=== PATIENT | female | born 1935 | race Caucasian/White ===

== ENCOUNTER 2017-04-21 17:27 | Inpatient (IN) | payer OTHER, MEDICAID ==
--- NOTE | 2017-04-21 18:11 | DR.GENAD ---
HPI - PCP Primary Care Physician: MASSIEL LOFTON - Complaint/Symptoms Chief Complaint:: PT STATES " I HAVE DIVERTICULITIS AND I HAVE BEEN HURTING , PT WAS SEEN BY SHAKILA AND SHE WAS GIVEN IVF AND SHE WANTED TO ADMIT PT ME AND I THOUGHT I WOULD GET BETTER".. PT GOT IVF'S TODAY AND ABX, CIPRO 500 MG.. Self Treatment fo Chief Complaint: PT STARTED HAVING FEVER AND CHILLS AFTER PT SAW MD TODAY AND SHE WAS TOLD T COME TO THE ER.. - Source History Provided: Patient, Family Member - Mode of Arrival Mode of Arrival: Ambulatory - Timing Onset of Chief Complaint: 04/21/17 PMH - PMH Past Medical History: Yes Past Medical History Comment: YEAST INFECTION , RENAL STONE DIVERTICULITIS. PT WEARS 02 AT NIGHT Past Surgical History: Yes Past Surgical History Comment: PACMAKER - Family History History of Family Medical Conditions: No - Social History Does patient currently use any type of tobacco product: No Have you used tobacco products in the last 12 months: No Type of Tobacco Use: None Does any household member use tobacco: No Alcohol Use: None Do you use any recreational Drugs:: No Lives With: Alone Lives Where: Home - infectious screening In the last 2 months have you had wt loss of >10#?: NO Have you had fever, night sweats or hemotysis?: No Have you traveled outside the country in the last 6 months?: No Isolation: Standard PE - Vital Signs Vitals: Temperature 99.5 F Pulse Rate 88 Respiratory Rate 20 Blood Pressure 106/56 O2 Sat by Pulse Oximetry 94 - Discharge Plan Condition: Stable - Follow ups/Referrals Follow ups/Referrals: Ole Christopher [Primary Care Provider] - 3 days - Instructions
[2017-04-21] MEDS ORDERED: MORPHINE SULFATE INJ 2 MG IVP ONE (19:10)
[2017-04-21] MEDS ORDERED: ZOFRAN INJ 4 MG VIAL IVP ONE (19:10)
[2017-04-21] MEDS ORDERED: ZOFRAN INJ 4 MG VIAL ONE (19:15)
[2017-04-21] MEDS ORDERED: MORPHINE SULFATE INJ 2 MG ONE (19:15)
[2017-04-21 19:27] LABS: BASOPHILS % (AUTO) 0.2 % (0.2-1.0); EOSINOPHILS # (AUTO) 0.1 x10^3/uL (0.0-0.2); HEMATOCRIT 28.6 % (36.0-47.0); HEMOGLOBIN 9.4 g/dL (12.0-16.0); LYMPHOCYTES # (AUTO) 0.1 X10^3/uL (1.3-2.9); LYMPHOCYTES % (AUTO) 1.5 % (21.0-51.0); MEAN CORPUSCULAR HEMOGLOBIN 25.8 pg (27.0-34.0); MEAN CORPUSCULAR VOLUME 78.1 fL (80.0-100.0); MEAN PLATELET VOLUME 6.9 fL (7.4-11.0); MONOCYTES # (AUTO) 0.2 x10^3/uL (0.3-0.8); MONOCYTES % (AUTO) 2.6 % (0.0-13.0); NEUTROPHILS # (AUTO) 8.8 x10^3/uL (2.2-4.8); NEUTROPHILS % (AUTO) 94.7 % (42.0-75.0); PLATELET COUNT 164 X10^3/uL (150.0-450.0); RED BLOOD COUNT 3.66 X10^6/uL (3.5-5.4); RED CELL DISTRIBUTION WIDTH 14.7 % (11.6-16.5); WHITE BLOOD COUNT 9.3 X10^3/uL (3.6-10.0)
[2017-04-21 19:38] LABS: BAND NEUTROPHILS % 9 % (0-10); HYPOCHROMASIA SLIGHT; PLATELET MORPHOLOGY COMMENT NORMAL (NORMAL)
[2017-04-21 19:46] LABS: ALANINE AMINOTRANSFERASE 14 Units/L (12-78); ALBUMIN 3.3 g/dL (3.4-5.0); ALKALINE PHOSPHATASE 105 Units/L (46-116); ASPARTATE AMINO TRANSFERASE 16 Units/L (15-37); BLOOD UREA NITROGEN 25 mg/dL (7-18); CALCIUM 9.7 mg/dL (8.5-10.1); CARBON DIOXIDE 21.2 mmol/L (21-32); CHLORIDE 109 mmol/L (98-107); CKMB % 4.8 % (<4); COR CA(FOR HYPOALB) 10.3 mg/dL (8.5-10.1); COR NA(FOR HYPERGLY) 144 mmol/L (136-145); CREATINE KINASE 21 Units/L (26-192); CREATINE KINASE MB < 1.0 ng/mL (0-4.0); CREATININE 1.82 mg/dL (0.55-1.02); GLUCOSE 133 mg/dL (65-99); SODIUM 143 mmol/L (136-145); TOTAL PROTEIN 7.6 g/dL (6.4-8.2); TROPONIN I < 0.02 ng/mL (0-1.5); eGFR BLACK RACES 34 (>60); eGFR NON BLACK RACES 28 (>60)
[2017-04-21] MEDS ORDERED: NS 1000 ML 1,000 ML IV SCH (20:00)
--- NOTE | 2017-04-21 20:25 | CT ---
CT abdomen and pelvis without contrast Indication: Abdominal pain Comparison: None Technique: CT images of the abdomen and pelvis were obtained without contrast. Automatic exposure co ntrol was utilized. Findings: There is marked lumbar facet arthropathy. Age-indeterminate T8 compression fracture noted. There is generalized osteopenia. Images of the lower chest demonstrate cardiomegaly with coronary atherosclerosis. There are mild int erstitial changes of the lung bases with dependent basilar atelectasis. There are at least 2 small fat containing supraumbilical ventral hernia is (for example axial images 42 and 49). No bowel containing hernia. Previous ventral hernia repair noted. Within noncontrast limitations, the liver, gallbladder, spleen, stomach, duodenum, pancreas, adrenal s, and kidneys demonstrate no acute abnormality. There are small nonobstructing left renal calculi. Colonic diverticulosis noted. There is minimal fat stranding adjacent to a short segment of the sigm oid colon (for example sagittal images 30-33). No discrete collection or free air identified. The re mainder of the lower GI tract is unremarkable. The appendix is within normal limits. The uterus and ovaries are noted. The urinary bladder and rectum are unremarkable. No free fluid or adenopathy iden tified. Impression: 1. Findings of early/mild acute uncomplicated diverticulitis of the sigmoid colon. 2. Nonobstructing left nephrolithiasis and other findings as above. Reported By:
--- NOTE | 2017-04-21 20:38 | RAD ---
Chest AP portable Indication: Hypotension. Findings: There is cardiomegaly with pacemaker leads as expected. There is no pneumothorax, effusion or consolidation. Chronic COPD changes suggested. Impression: COPD and cardiomegaly without other acute abnormality. Follow PA and lateral chest as ne eded. Reported By:
[2017-04-21] MEDS ORDERED: MORPHINE SULFATE INJ 2 MG IVP PRN (20:56)
[2017-04-21] MEDS ORDERED: PEPCID 20 MG IV PREMIX* 20 MG/50 ML BAG IV PRN (20:56)
[2017-04-21] MEDS ORDERED: ZOFRAN INJ 4 MG VIAL IVP PRN (20:56)
[2017-04-21] MEDS ORDERED: CIPRO IV 400 MG PREMIX* 400 MG/200 ML IV.SOLN. IV SCH (21:00)
[2017-04-21] MEDS ORDERED: FLAGYL IV PREMIX 500 MG BAG 500 MG/100 ML BAG IV ONE (21:48)
[2017-04-21] MEDS ORDERED: NS + KCL 20 MEQ/L 1,000 ML IV ONE (21:48)
[2017-04-21] MEDS: FLAGYL IV PREMIX 500 MG BAG 500 MG/100 ML BAG IV SCH (21:55)
[2017-04-21] MEDS: NS + KCL 20 MEQ/L 1,000 ML IV SCH (21:55)
[2017-04-21] MEDS: CIPRO IV 200 MG PREMIX* 200 MG/100 ML BAG IV SCH (22:57)
[2017-04-22 02:04] VITALS: BMI 25.8
[2017-04-22] MEDS: FLAGYL IV PREMIX 500 MG BAG 500 MG/100 ML BAG IV SCH ×4 (03:02→20:51)
[2017-04-22 06:08] LABS: BASOPHILS # (AUTO) 0.1 X10^3/uL (0.0-0.1); BASOPHILS % (AUTO) 0.5 % (0.2-1.0); EOSINOPHILS # (AUTO) 0.1 x10^3/uL (0.0-0.2); EOSINOPHILS % (AUTO) 0.7 % (0.9-2.9); HEMATOCRIT 24.1 % (36.0-47.0); HEMOGLOBIN 7.9 g/dL (12.0-16.0); LYMPHOCYTES # (AUTO) 0.3 X10^3/uL (1.3-2.9); LYMPHOCYTES % (AUTO) 3.1 % (21.0-51.0); MEAN CORPUSCULAR HEMOGLOBIN 25.9 pg (27.0-34.0); MEAN CORPUSCULAR HGB CONC 32.9 g/dL (33.0-35.0); MEAN CORPUSCULAR VOLUME 78.8 fL (80.0-100.0); MEAN PLATELET VOLUME 7.5 fL (7.4-11.0); MONOCYTES # (AUTO) 0.3 x10^3/uL (0.3-0.8); MONOCYTES % (AUTO) 3.3 % (0.0-13.0); NEUTROPHILS # (AUTO) 9.6 x10^3/uL (2.2-4.8); NEUTROPHILS % (AUTO) 92.4 % (42.0-75.0); PLATELET COUNT 142 X10^3/uL (150.0-450.0); RED BLOOD COUNT 3.06 X10^6/uL (3.5-5.4); RED CELL DISTRIBUTION WIDTH 14.8 % (11.6-16.5); WHITE BLOOD COUNT 10.4 X10^3/uL (3.6-10.0)
[2017-04-22 06:19] LABS: ALANINE AMINOTRANSFERASE 9 Units/L (12-78); ALBUMIN 2.5 g/dL (3.4-5.0); ALKALINE PHOSPHATASE 74 Units/L (46-116); ASPARTATE AMINO TRANSFERASE 14 Units/L (15-37); BLOOD UREA NITROGEN 28 mg/dL (7-18); CALCIUM 8.5 mg/dL (8.5-10.1); CARBON DIOXIDE 19.8 mmol/L (21-32); CHLORIDE 111 mmol/L (98-107); COR CA(FOR HYPOALB) 9.7 mg/dL (8.5-10.1); CREATININE 1.74 mg/dL (0.55-1.02); GLUCOSE 108 mg/dL (65-99); SODIUM 141 mmol/L (136-145); TOTAL PROTEIN 6.1 g/dL (6.4-8.2); eGFR BLACK RACES 36 (>60); eGFR NON BLACK RACES 30 (>60)
[2017-04-22 06:56] LABS: ANISOCYTOSIS 1+; HYPOCHROMASIA 1+; MICROCYTOSIS 1+; PLATELET MORPHOLOGY COMMENT NORMAL (NORMAL)
[2017-04-22] MEDS: NS + KCL 20 MEQ/L 1,000 ML IV SCH ×4 (08:41→23:22)
[2017-04-22 09:23] LABS: BILIRUBIN,URINE NEGATIVE (NEGATIVE); BLOOD/HEMOGLOBIN,URINE 1+ (NEGATIVE); GLUCOSE, URINE NEGATIVE (NEGATIVE); KETONES,URINE NEGATIVE (NEGATIVE); LEUKOCYTE ESTERASE ,URINE 3+ (NEGATIVE); NITRITES,URINE NEGATIVE (NEGATIVE); PROTEIN,URINE 2+ (NEGATIVE); UROBILINOGEN,URINE NORMAL (NORMAL)
[2017-04-22 09:36] LABS: APPEARANCE,URINE HAZY (CLEAR); BACTERIA,URINE TRACE /HPF (NEGATIVE); COLOR,URINE YELLOW (YELLOW); RBC,URINE 0-2 /HPF (NEGATIVE); SQUAMOUS EPITHELIAL CELL,UR RARE /HPF (NEGATIVE)
[2017-04-22] MEDS: CIPRO IV 200 MG PREMIX* 200 MG/100 ML BAG IV SCH ×2 (09:58→20:52)
[2017-04-22] MEDS ORDERED: ULTRAM PO PRN (14:47)
[2017-04-22] MEDS ORDERED: PATIENT'S HOME MEDICATION (Omeprazole [Omeprazole] 40 MG) PO SCH (15:00)
[2017-04-22] MEDS: ASPIRIN EC 81 MG PO SCH (16:47)
[2017-04-22] MEDS: PriLOSEC PO SCH (16:47)
[2017-04-22] MEDS: SYNTHROID 100 mcg TAB PO SCH (16:47)
[2017-04-22] MEDS ORDERED: ZOLOFT PO ONE (20:45)
[2017-04-22] MEDS ORDERED: ZOLOFT PO SCH (21:00)
[2017-04-23] MEDS: FLAGYL IV PREMIX 500 MG BAG 500 MG/100 ML BAG IV SCH ×3 (02:33→15:08)
[2017-04-23 06:15] LABS: BASOPHILS % (AUTO) 0.8 % (0.2-1.0); EOSINOPHILS # (AUTO) 0.6 x10^3/uL (0.0-0.2); EOSINOPHILS % (AUTO) 10.6 % (0.9-2.9); HEMATOCRIT 24.1 % (36.0-47.0); HEMOGLOBIN 7.9 g/dL (12.0-16.0); LYMPHOCYTES # (AUTO) 0.9 X10^3/uL (1.3-2.9); LYMPHOCYTES % (AUTO) 15.6 % (21.0-51.0); MEAN CORPUSCULAR HEMOGLOBIN 26.1 pg (27.0-34.0); MEAN CORPUSCULAR HGB CONC 32.8 g/dL (33.0-35.0); MEAN CORPUSCULAR VOLUME 79.4 fL (80.0-100.0); MONOCYTES # (AUTO) 0.3 x10^3/uL (0.3-0.8); PLATELET COUNT 127 X10^3/uL (150.0-450.0); RED BLOOD COUNT 3.04 X10^6/uL (3.5-5.4); RED CELL DISTRIBUTION WIDTH 14.9 % (11.6-16.5); WHITE BLOOD COUNT 5.9 X10^3/uL (3.6-10.0)
[2017-04-23] MEDS: NS + KCL 20 MEQ/L 1,000 ML IV SCH ×2 (06:31→13:41)
[2017-04-23 06:45] LABS: ALANINE AMINOTRANSFERASE 9 Units/L (12-78); ALBUMIN 2.4 g/dL (3.4-5.0); ALKALINE PHOSPHATASE 71 Units/L (46-116); ASPARTATE AMINO TRANSFERASE 15 Units/L (15-37); BLOOD UREA NITROGEN 25 mg/dL (7-18); CALCIUM 8.3 mg/dL (8.5-10.1); CARBON DIOXIDE 18.8 mmol/L (21-32); CHLORIDE 114 mmol/L (98-107); COR CA(FOR HYPOALB) 9.6 mg/dL (8.5-10.1); CREATININE 1.43 mg/dL (0.55-1.02); GLUCOSE 83 mg/dL (65-99); SODIUM 143 mmol/L (136-145); eGFR BLACK RACES 45 (>60); eGFR NON BLACK RACES 38 (>60)
[2017-04-23 07:05] LABS: HYPOCHROMASIA SLIGHT; MICROCYTOSIS SLIGHT; PLATELET MORPHOLOGY COMMENT NORMAL (NORMAL)
[2017-04-23] MEDS: ASPIRIN EC 81 MG PO SCH (08:36)
[2017-04-23] MEDS: SYNTHROID 100 mcg TAB PO SCH (08:36)
[2017-04-23] MEDS ORDERED: ZOCOR TAB 20 MG PO SCH (09:00)
[2017-04-23] MEDS ORDERED: NORVASC TAB 10 MG PO SCH (09:00)
[2017-04-23] MEDS: CIPRO IV 200 MG PREMIX* 200 MG/100 ML BAG IV SCH (09:40)
[2017-04-23] MEDS: PriLOSEC PO SCH (09:42)
[2017-04-23 12:25] VITALS: BP 140/65
--- NOTE | 2017-05-01 22:54 | DR.H&P ---
H&P - History & Physical for Day of: H&P Date: 04/21/17 - Chief Complaint Chief Complaint: abd pain and fever - Allergies Allergies/Adverse Reactions: Allergies Allergy/AdvReac Type Severity Reaction Status Date / Time No Known Drug Allergies Allergy Verified 04/30/17 16:28 - History of Present Illness History of Present Illness: PT STATES " I HAVE DIVERTICULITIS AND I HAVE BEEN HURTING , PT WAS SEEN BY SHAKILA AND SHE WAS GIVEN IVF AND SHE WANTED TO ADMIT PT ME AND I THOUGHT I WOULD GET BETTER".. PT GOT IVF'S TODAY AND ABX, CIPRO 500 MG.PT STARTED HAVING FEVER AND CHILLS AFTER PT SAW MD TODAY AND SHE WAS TOLD TO COME TO THE ER.. - Past Medical History Past Medical History: Hypertension Additional Medical History: DIVERTICULUM - Past Surgical History Surgical History: Unknown - Family History Family Medical History: Cancer, [place], Coronary Artery Disease - Social History Does patient currently use any type of tobacco product: No Have you used tobacco products in the last 12 months: No Type of Tobacco Use: None Does any household member use tobacco: No Alcohol Use: None Drug Use: None - Medications Home Medications: Amlodipine Besylate 10 mg PO DAILY 04/21/17 [History Confirmed 04/30/17] Aspirin EC [ASPIRIN EC 81 MG *] 81 mg PO DAILY 04/21/17 [History Confirmed 04/30] Levothyroxine Sodium 100 mcg PO DAILY 04/21/17 [History Confirmed 04/30/17] Omeprazole 40 mg PO DAILY 04/21/17 [History Confirmed 04/30/17] Sertraline HCl [Zoloft] 100 mg PO HS 04/21/17 [History Confirmed 04/30/17] Simvastatin 20 mg PO DAILY 04/21/17 [History Confirmed 04/30/17] - Review of Systems Constitutional: Fever, Chills, Weakness Eyes: No Symptoms Reported ENT: No Symptoms Reported Respiratory: No Symptoms Reported Cardiovascular: No Symptoms Reported Gastrointestinal: Nausea, Abdominal Pain Genitourinary: No Symptoms Reported Musculoskeletal: No Symptoms Reported Skin: No Symptoms Reported Neurological: No Symptoms Reported - Physical Exam Vital Signs: Temperature 97.9 F Pulse Rate [Left Brachial] 65 Pulse Rate [Left] 83 Respiratory Rate 18 Blood Pressure [Left Arm] 140/65 O2 Sat by Pulse Oximetry 93 Oriented: Normal Eyes: Normal Ear: Normal Nose: Normal Throat: Normal Respiratory: Clear Throughout Cardiovascular: Normal : Normal Auscultation: Bowel Sounds: Normal Palpation: Normal Tenderness: Diffuse, LLQ Skin: Normal Musculoskeletal: Normal Psychiatric: Normal Mood Description: Calm Affect: Normal Speech Pattern: Clear - Assessment/Plan (1) Acute diverticulitis Status: Acute (2) Generalized weakness Status: Acute (3) UTI (urinary tract infection) Qualifiers: Urinary tract infection type: site unspecified Hematuria presence: without hematuria Indwelling urinary catheter type: I Encounter type: E Qualified Code(s): N39.0 - Urinary tract infection, site not specified Status: Acute
--- NOTE | 2017-05-01 22:59 | PCM.PROG ---
Progress Note - Subjective Subjective: STARTED HAVING FEVER AND CHILLS AFTER PT SAW MD TODAY AND SHE WAS TOLD TO COME TO THE ER.. - Past Medical Family Social History Past Med/Fam/Surg Hx: No changes since H&P Allergies: Allergies No Known Drug Allergies Allergy (Verified 04/30/17 16:28) - Review of Systems ROS: No change since H&P - Vital Signs and I&O's Vital Signs: Temperature 97.9 F Pulse Rate [Left Brachial] 65 Pulse Rate [Left] 83 Respiratory Rate 18 Blood Pressure [Left Arm] 140/65 O2 Sat by Pulse Oximetry 93 - Physical Exam Oriented: Normal Eyes: Normal Ear: Normal Nose: Normal Throat: Normal Cardiovascular: Normal : Normal Auscultation: Bowel Sounds: Normal Tenderness: Diffuse, LLQ Skin: Normal Musculoskeletal: Normal Psychiatric: Normal Mood Description: Calm Affect: Normal Speech Pattern: Clear - Laboratory and Diagnostics Result Diagrams: 04/23/17 03:55 04/23/17 03:55 Labs: Laboratory WBC 5.9 X10^3/uL (3.6-10.0) 04/23/17 03:55 RBC 3.04 X10^6/uL (3.5-5.4) L 04/23/17 03:55 Hgb 7.9 g/dL (12.0-16.0) L 04/23/17 03:55 Hct 24.1 % (36.0-47.0) L 04/23/17 03:55 MCV 79.4 fL (80.0-100.0) L 04/23/17 03:55 MCH 26.1 pg (27.0-34.0) L 04/23/17 03:55 MCHC 32.8 g/dL (33.0-35.0) L 04/23/17 03:55 RDW 14.9 % (11.6-16.5) 04/23/17 03:55 Plt Count 127 X10^3/uL (150.0-450.0) L 04/23/17 03:55 Plt Count Comment Adequate (ADEQUATE) 04/23/17 03:55 MPV 8.0 fL (7.4-11.0) 04/23/17 03:55 Neut % 68.0 % (42.0-75.0) 04/23/17 03:55 Lymph % 15.6 % (21.0-51.0) L 04/23/17 03:55 [place] % 5.0 % (0.0-13.0) 04/23/17 03:55 Eos % 10.6 % (0.9-2.9) H 04/23/17 03:55 Baso % 0.8 % (0.2-1.0) 04/23/17 03:55 Neut # 4.0 x10^3/uL (2.2-4.8) 04/23/17 03:55 Lymph # 0.9 X10^3/uL (1.3-2.9) L 04/23/17 03:55 [place] # 0.3 x10^3/uL (0.3-0.8) 04/23/17 03:55 Eos # 0.6 x10^3/uL (0.0-0.2) H 04/23/17 03:55 Baso # 0.0 X10^3/uL (0.0-0.1) 04/23/17 03:55 Absolute Nucleated RBC 0.2 /100WBC 04/23/17 03:55 Total Counted 100 04/22/17 05:20 Neutrophils % (Manual) 98 % (39-76) H 04/22/17 05:20 Band Neutrophils % 9 % (0-10) 04/21/17 19:20 Lymphocytes % (Manual) 1 % (13-43) L 04/22/17 05:20 Monocytes % (Manual) 3 % (4-9) L 04/21/17 19:20 Eosinophils % (Manual) 1 % (0-6) 04/22/17 05:20 Plt Morphology Comment Normal (NORMAL) 04/23/17 03:55 RBC Morphology Abnormal (NORMAL) A 04/23/17 03:55 Hypochromasia Slight A 04/23/17 03:55 Anisocytosis 1+ A 04/22/17 05:20 Microcytosis Slight A 04/23/17 03:55 Macrocytosis Slight A 04/22/17 05:20 Sodium 143 mmol/L (136-145) 04/23/17 03:55 Corrected Sodium TNP 04/23/17 03:55 Potassium 3.7 mmol/L (3.5-5.1) 04/23/17 03:55 Chloride 114 mmol/L (98-107) H 04/23/17 03:55 Carbon Dioxide 18.8 mmol/L (21-32) L 04/23/17 03:55 BUN 25 mg/dL (7-18) H 04/23/17 03:55 Creatinine 1.43 mg/dL (0.55-1.02) H 04/23/17 03:55 Est GFR (MDRD) Af Amer 45 (>60) L 04/23/17 03:55 Est GFR (MDRD) Non-Af 38 (>60) L 04/23/17 03:55 Glucose 83 mg/dL (65-99) 04/23/17 03:55 Calcium 8.3 mg/dL (8.5-10.1) L 04/23/17 03:55 Corrected Calcium 9.6 mg/dL (8.5-10.1) 04/23/17 03:55 Total Bilirubin 0.20 mg/dL (0.2-1.0) 04/23/17 03:55 AST 15 Units/L (15-37) 04/23/17 03:55 ALT 9 Units/L (12-78) L 04/23/17 03:55 Alkaline Phosphatase 71 Units/L (46-116) 04/23/17 03:55 Creatine Kinase 21 Units/L (26-192) L 04/21/17 19:20 CK-MB (CK-2) < 1.0 ng/mL (0-4.0) 04/21/17 19:20 CK/CKMB % Calc 4.8 % (<4) 04/21/17 19:20 Troponin I < 0.02 ng/mL (0-1.5) 04/21/17 19:20 Total Protein 6.0 g/dL (6.4-8.2) L 04/23/17 03:55 Albumin 2.4 g/dL (3.4-5.0) L 04/23/17 03:55 Globulin 3.6 g/dL (2.5-4.5) 04/23/17 03:55 Albumin/Globulin Ratio 0.7 Ratio (1.1-2.1) L 04/23/17 03:55 Specimen Type Clean catch urine 04/22/17 08:28 Urine Color Yellow (YELLOW) 04/22/17 08:28 Urine Appearance Hazy (CLEAR) 04/22/17 08:28 Urine pH 5.0 (5.0 - 8.0) 04/22/17 08:28 Ur Specific [place] 1.020 (1.000-1.030) 04/22/17 08:28 Urine Protein 2+ (NEGATIVE) 04/22/17 08:28 Urine Glucose (UA) Negative (NEGATIVE) 04/22/17 08:28 Urine Ketones Negative (NEGATIVE) 04/22/17 08:28 Urine Occult Blood 1+ (NEGATIVE) 04/22/17 08:28 Urine Nitrite Negative (NEGATIVE) 04/22/17 08:28 Urine Bilirubin Negative (NEGATIVE) 04/22/17 08:28 Urine Urobilinogen Normal (NORMAL) 04/22/17 08:28 Ur Leukocyte Esterase 3+ (NEGATIVE) 04/22/17 08:28 Urine RBC 0-2 /HPF (NEGATIVE) 04/22/17 08:28 Urine WBC 3-5 /HPF (NEGATIVE) 04/22/17 08:28 Ur Squamous Epith Cells Rare /HPF (NEGATIVE) 04/22/17 08:28 Urine Bacteria Trace /HPF (NEGATIVE) 04/22/17 08:28 Ur Culture Indicated? No/not indicated 04/22/17 08:28 - Plan (1) Acute diverticulitis Status: Acute Plan: IV HYDRATION,MEDS (2) Generalized weakness Status: Acute Plan: IVFS, LABS (3) UTI (urinary tract infection) Status: Acute Qualifiers: Urinary tract infection type: site unspecified Hematuria presence: without hematuria Indwelling urinary catheter type: I Encounter type: E Qualified Code(s): N39.0 - Urinary tract infection, site not specified Plan: IV ANTIBIOTICS
--- NOTE | 2017-05-01 23:03 | PCM.DCPLAN ---
Discharge Summary - Admission Date Date of Admission: 04/21/17 - Discharge Date Discharge Date: 04/23/17 - Admission Diagnoses (1) Acute diverticulitis Status: Acute (2) Generalized weakness Status: Acute (3) UTI (urinary tract infection) Status: Acute - Discharge Diagnoses Discharge Diagnosis: SAME ADMISSION DIAGNOSIS - Discharge Medications Discharge Medications: Amlodipine Besylate 10 mg PO DAILY 04/21/17 [History] Aspirin EC [ASPIRIN EC 81 MG *] 81 mg PO DAILY 04/21/17 [History] Levothyroxine Sodium 100 mcg PO DAILY 04/21/17 [History] Omeprazole 40 mg PO DAILY 04/21/17 [History] Sertraline HCl [Zoloft] 100 mg PO HS 04/21/17 [History] Simvastatin 20 mg PO DAILY 04/21/17 [History] - Hospital Course Vital Signs: Temperature 97.9 F Pulse Rate [Left Brachial] 65 Pulse Rate [Left] 83 Respiratory Rate 18 Blood Pressure [Left Arm] 140/65 O2 Sat by Pulse Oximetry 93 Latest Lab Results: Laboratory Last Values WBC 5.9 X10^3/uL (3.6-10.0) 04/23/17 03:55 RBC 3.04 X10^6/uL (3.5-5.4) L 04/23/17 03:55 Hgb 7.9 g/dL (12.0-16.0) L 04/23/17 03:55 Hct 24.1 % (36.0-47.0) L 04/23/17 03:55 MCV 79.4 fL (80.0-100.0) L 04/23/17 03:55 MCH 26.1 pg (27.0-34.0) L 04/23/17 03:55 MCHC 32.8 g/dL (33.0-35.0) L 04/23/17 03:55 RDW 14.9 % (11.6-16.5) 04/23/17 03:55 Plt Count 127 X10^3/uL (150.0-450.0) L 04/23/17 03:55 Plt Count Comment Adequate (ADEQUATE) 04/23/17 03:55 MPV 8.0 fL (7.4-11.0) 04/23/17 03:55 Neut % 68.0 % (42.0-75.0) 04/23/17 03:55 Lymph % 15.6 % (21.0-51.0) L 04/23/17 03:55 [place] % 5.0 % (0.0-13.0) 04/23/17 03:55 Eos % 10.6 % (0.9-2.9) H 04/23/17 03:55 Baso % 0.8 % (0.2-1.0) 04/23/17 03:55 Neut # 4.0 x10^3/uL (2.2-4.8) 04/23/17 03:55 Lymph # 0.9 X10^3/uL (1.3-2.9) L 04/23/17 03:55 [place] # 0.3 x10^3/uL (0.3-0.8) 04/23/17 03:55 Eos # 0.6 x10^3/uL (0.0-0.2) H 04/23/17 03:55 Baso # 0.0 X10^3/uL (0.0-0.1) 04/23/17 03:55 Absolute Nucleated RBC 0.2 /100WBC 04/23/17 03:55 Total Counted 100 04/22/17 05:20 Neutrophils % (Manual) 98 % (39-76) H 04/22/17 05:20 Band Neutrophils % 9 % (0-10) 04/21/17 19:20 Lymphocytes % (Manual) 1 % (13-43) L 04/22/17 05:20 Monocytes % (Manual) 3 % (4-9) L 04/21/17 19:20 Eosinophils % (Manual) 1 % (0-6) 04/22/17 05:20 Plt Morphology Comment Normal (NORMAL) 04/23/17 03:55 RBC Morphology Abnormal (NORMAL) A 04/23/17 03:55 Hypochromasia Slight A 04/23/17 03:55 Anisocytosis 1+ A 04/22/17 05:20 Microcytosis Slight A 04/23/17 03:55 Macrocytosis Slight A 04/22/17 05:20 Sodium 143 mmol/L (136-145) 04/23/17 03:55 Corrected Sodium TNP 04/23/17 03:55 Potassium 3.7 mmol/L (3.5-5.1) 04/23/17 03:55 Chloride 114 mmol/L (98-107) H 04/23/17 03:55 Carbon Dioxide 18.8 mmol/L (21-32) L 04/23/17 03:55 BUN 25 mg/dL (7-18) H 04/23/17 03:55 Creatinine 1.43 mg/dL (0.55-1.02) H 04/23/17 03:55 Est GFR (MDRD) Af Amer 45 (>60) L 04/23/17 03:55 Est GFR (MDRD) Non-Af 38 (>60) L 04/23/17 03:55 Glucose 83 mg/dL (65-99) 04/23/17 03:55 Calcium 8.3 mg/dL (8.5-10.1) L 04/23/17 03:55 Corrected Calcium 9.6 mg/dL (8.5-10.1) 04/23/17 03:55 Total Bilirubin 0.20 mg/dL (0.2-1.0) 04/23/17 03:55 AST 15 Units/L (15-37) 04/23/17 03:55 ALT 9 Units/L (12-78) L 04/23/17 03:55 Alkaline Phosphatase 71 Units/L (46-116) 04/23/17 03:55 Creatine Kinase 21 Units/L (26-192) L 04/21/17 19:20 CK-MB (CK-2) < 1.0 ng/mL (0-4.0) 04/21/17 19:20 CK/CKMB % Calc 4.8 % (<4) 04/21/17 19:20 Troponin I < 0.02 ng/mL (0-1.5) 04/21/17 19:20 Total Protein 6.0 g/dL (6.4-8.2) L 04/23/17 03:55 Albumin 2.4 g/dL (3.4-5.0) L 04/23/17 03:55 Globulin 3.6 g/dL (2.5-4.5) 04/23/17 03:55 Albumin/Globulin Ratio 0.7 Ratio (1.1-2.1) L 04/23/17 03:55 Specimen Type Clean catch urine 04/22/17 08:28 Urine Color Yellow (YELLOW) 04/22/17 08:28 Urine Appearance Hazy (CLEAR) 04/22/17 08:28 Urine pH 5.0 (5.0 - 8.0) 04/22/17 08:28 Ur Specific [place] 1.020 (1.000-1.030) 04/22/17 08:28 Urine Protein 2+ (NEGATIVE) 04/22/17 08:28 Urine Glucose (UA) Negative (NEGATIVE) 04/22/17 08:28 Urine Ketones Negative (NEGATIVE) 04/22/17 08:28 Urine Occult Blood 1+ (NEGATIVE) 04/22/17 08:28 Urine Nitrite Negative (NEGATIVE) 04/22/17 08:28 Urine Bilirubin Negative (NEGATIVE) 04/22/17 08:28 Urine Urobilinogen Normal (NORMAL) 04/22/17 08:28 Ur Leukocyte Esterase 3+ (NEGATIVE) 04/22/17 08:28 Urine RBC 0-2 /HPF (NEGATIVE) 04/22/17 08:28 Urine WBC 3-5 /HPF (NEGATIVE) 04/22/17 08:28 Ur Squamous Epith Cells Rare /HPF (NEGATIVE) 04/22/17 08:28 Urine Bacteria Trace /HPF (NEGATIVE) 04/22/17 08:28 Ur Culture Indicated? No/not indicated 04/22/17 08:28 Hospital Course: PATIENT PRESENTED TO ED WITH COMPLAINTS OF ABD PAIN. STATED " I HAVE DIVERTICULITIS AND I HAVE BEEN HURTING. SEEN BY SHAKILA AND SHE WAS GIVEN IVF AND SHE WANTED TO ADMIT PT THOUGHT I WOULD GET BETTER".. PT GOT IVF'S TODAY AND ABX, CIPRO 500 MG.. PT STARTED HAVING FEVER AND CHILLS AFTER PT SAW TODAY AND SHE WAS TOLD TO COME TO THE ER..PATIENT DID HAVE LABS AND CT ABDOMEN OBTAINED. SIGMOID DIVERTICULI WERE NOTED. PATIENT DID RESPOND TO TREATMENT. PATIENT WAS STABLE AND WAS DISCHARGED HOME. - Discharge Plan Disposition: 01 HOME, SELF-CARE Condition: Stable - Follow ups/Referrals Follow ups/Referrals: Ole Christopher [Primary Care Provider] - 3 days - Instructions Instructions: Diverticulitis, Urinary Tract Infection, [id number]
== END 2017-04-23 15:15 | disposition home or self-care (01) | DRG 392 ==
LOC: ER 18:06 → MED/SURG 20:55
PROVIDERS: ADMIT Internal Medicine; ATTEND Internal Medicine
DX: K57.92 Diverticulitis of intestine, part unspecified, without perforation or abscess without bleeding (principal); N39.0 Urinary tract infection, site not specified; R10.84 Generalized abdominal pain; J44.9 Chronic obstructive pulmonary disease, unspecified; R94.31 Abnormal electrocardiogram [ECG] [EKG]; R53.1 Weakness
CPT/HCPCS: 36415; 71010; 74176; 80053; 81001; 82550; 82553; 84484; 85025; 93005; 93010; 94760; 96365; 96374; 96375; 99231; 99238; 99284; A4222; S0030; J0744; J2270; J2405

== ENCOUNTER 2017-04-30 13:43 | Inpatient (IN) | payer OTHER, MEDICAID ==
--- NOTE | 2017-04-30 13:55 | DR.GENAD ---
HPI - PCP Primary Care Physician: haile - HPI Comment HPI Comment: PATIENTS DAUGHTER SAID SHE WAS HAVING CHEST DISCOMFORT TODAY. SHE IS WEAK TODAY. NO FEVER. - Complaint/Symptoms Chief Complaint Doctors Comments: HEART PALPITATION WITH INDIGESTION SYMPTOMS TIMES 2 DAYS. Chief Complaint:: patient stated she has been having heart palpatations for two days. she stated it runs under her pace maker - Nurses notes reviewed Nurses Notes Review: Yes - Source History Provided: Patient - Mode of Arrival Mode of Arrival: Ambulatory - Timing Onset of Chief Complaint: 04/28/17 Came on: Suddenly - Duration Duration: Constant Duration: Days - Severity Severity: Moderate PMH - PMH Past Medical History: Yes Past Medical History: GERD, Hypertension Past Surgical History: Yes Surgical History: Abdominal Surgery, Ortho Surgery Past Surgical History Comment: hernia - Family History History of Family Medical Conditions: Yes Family Medical History: Cancer, [place], Coronary Artery Disease - Social History Does patient currently use any type of tobacco product: No Have you used tobacco products in the last 12 months: No Type of Tobacco Use: None Does any household member use tobacco: No Alcohol Use: None Do you use any recreational Drugs:: No Lives With: Family Lives Where: Home - infectious screening In the last 2 months have you had wt loss of >10#?: NO Have you had fever, night sweats or hemotysis?: No Have you traveled outside the country in the last 6 months?: No Isolation: Standard ROS - Review of Systems Constitutional: Weakness, Fatigue. negative: Chills, Fever Eyes: No Symptoms Reported. negative: Eye Pain, Discharge ENTM: No Symptoms Reported. negative: Ear Pain, Nose Discharge, Nose Congestion , Throat Pain Respiratoy: Non-Productive Cough, Short of Breath. negative: Productive Cough, Wheezing, Hemoptysis Cardiovascular: Chest Pain, Palpitations, Syncope (NEAR SYNCOPAL FEELING.) Gastrointestinal/Abdominal: Nausea. negative: Abdominal Pain, Vomiting Genitourinary: negative: Hematuria Neurological: Weakness Musculoskeletal: Joint Pain Integumentary: No Symptoms Reported Hematologic/Lymphatic: Easy Bruising Endocrine: negative: Flushing, Increased Thirst, Increased Urine All Other Systems: Reviewed and Negative PE - Vital Signs Vitals: Pulse Rate 81 Respiratory Rate 16 Blood Pressure [Left Arm] 140/65 Blood Pressure 118/64 O2 Sat by Pulse Oximetry 100 - General Limitations: No Limitations General Appearance: Alert - Head Head Exam: Normal Inspection - Eyes Eye exam: Normal Appearance - ENT ENT Exam: Normal External Ear Exam External Ear Exam: Normal External Inspection TM/Canal Exam: Bilateral Normal Nose Exam: Normal Nose Exam Mouth Exam: Normal Inspection Throat Exam: Normal Inspection - Neck Neck Exam: Trachea Midline - Chest Chest Inspection: Symmetric Chest Wall Rise - Respiratory Respiratory Exam: Normal Lung Sounds Bilat Respiratory Exam: Bilateral Rhonchi, Lower Rhonchi - Cardiovascular Cardiovascular Exam: Regular Rate, Normal Rhythm, Normal Heart Sounds - Abdominal Exam Abdominal Exam: Normal Bowel Sounds, Soft. negative: Tenderness - Extremities Extremities Exam: Normal Inspection - Back Back Exam: Paraspinal Tenderness - Neurologic Neurological Exam: Alert - Psychiatric Psychiatric Exam: Normal Affect, Normal Mood - Skin Skin Exam: Normal Color MDM - Differential Diagnosis Differential Diagnosis: PALPITATION, CHEST PAIN, WEAKNESS. Course - Treatment Treatment: SEE ORDERS. - Consultation Consultation Comments: DISCUSS PATIENT WITH DR. RANKIN. HE WILL ADMIT PATIENT. - Education/Counseling Education/Counseling: Patient, Family, Education Educated On: Diagnosis, Needs for Follow Up ROR - Labs Reviewed Laboratory Results Reviewed?: Yes Result Diagrams: 05/01/17 02:20 05/01/17 07:03 Laboratory: WBC 5.9 X10^3/uL (3.6-10.0) 04/30/17 14:12 RBC 3.82 X10^6/uL (3.5-5.4) 04/30/17 14:12 Hgb 9.8 g/dL (12.0-16.0) L 04/30/17 14:12 Hct 30.4 % (36.0-47.0) L 04/30/17 14:12 MCV 79.4 fL (80.0-100.0) L 04/30/17 14:12 MCH 25.6 pg (27.0-34.0) L 04/30/17 14:12 MCHC 32.3 g/dL (33.0-35.0) L 04/30/17 14:12 RDW 14.8 % (11.6-16.5) 04/30/17 14:12 Plt Count 177 X10^3/uL (150.0-450.0) 04/30/17 14:12 Plt Count Comment Adequate (ADEQUATE) 04/30/17 14:12 MPV 7.5 fL (7.4-11.0) 04/30/17 14:12 Neut % 71.4 % (42.0-75.0) 04/30/17 14:12 Lymph % 18.5 % (21.0-51.0) L 04/30/17 14:12 Benson % 6.5 % (0.0-13.0) 04/30/17 14:12 Eos % 2.5 % (0.9-2.9) 04/30/17 14:12 Baso % 1.1 % (0.2-1.0) H 04/30/17 14:12 Neut # 4.2 x10^3/uL (2.2-4.8) 04/30/17 14:12 Lymph # 1.1 X10^3/uL (1.3-2.9) L 04/30/17 14:12 Benson # 0.4 x10^3/uL (0.3-0.8) 04/30/17 14:12 Eos # 0.1 x10^3/uL (0.0-0.2) 04/30/17 14:12 Baso # 0.1 X10^3/uL (0.0-0.1) 04/30/17 14:12 Absolute Nucleated RBC 0.0 /100WBC 04/30/17 14:12 Plt Morphology Comment Normal (NORMAL) 04/30/17 14:12 RBC Morphology Normal (NORMAL) 04/30/17 14:12 Sodium 141 mmol/L (136-145) 04/30/17 14:12 Corrected Sodium 142 mmol/L (136-145) 04/30/17 14:12 Potassium 3.6 mmol/L (3.5-5.1) 04/30/17 14:12 Chloride 109 mmol/L (98-107) H 04/30/17 14:12 Carbon Dioxide 23.7 mmol/L (21-32) 04/30/17 14:12 BUN 11 mg/dL (7-18) 04/30/17 14:12 Creatinine 1.60 mg/dL (0.55-1.02) H 04/30/17 14:12 Est GFR (MDRD) Af Amer 40 (>60) L 04/30/17 14:12 Est GFR (MDRD) Non-Af 33 (>60) L 04/30/17 14:12 Glucose 135 mg/dL (65-99) H 04/30/17 14:12 Calcium 9.2 mg/dL (8.5-10.1) 04/30/17 14:12 Corrected Calcium 9.8 mg/dL (8.5-10.1) 04/30/17 14:12 Total Bilirubin 0.30 mg/dL (0.2-1.0) 04/30/17 14:12 AST 18 Units/L (15-37) 04/30/17 14:12 ALT 14 Units/L (12-78) 04/30/17 14:12 Alkaline Phosphatase 84 Units/L (46-116) 04/30/17 14:12 Creatine Kinase 25 Units/L (26-192) L 04/30/17 14:12 CK-MB (CK-2) < 1.0 ng/mL (0-4.0) 04/30/17 14:12 CK/CKMB % Calc 4.0 % (<4) 04/30/17 14:12 Troponin I < 0.02 ng/mL (0-1.5) 04/30/17 14:12 B-Natriuretic Peptide 244 pg/mL (0-79) H 04/30/17 14:12 Total Protein 7.6 g/dL (6.4-8.2) 04/30/17 14:12 Albumin 3.3 g/dL (3.4-5.0) L 04/30/17 14:12 Globulin 4.3 g/dL (2.5-4.5) 04/30/17 14:12 Albumin/Globulin Ratio 0.8 Ratio (1.1-2.1) L 04/30/17 14:12 - XRAY XRAY Interpreted by: Radiologist XRAY Findings: REPORT DISCUSS WITH PATIENT AND FAMILY. - EKG Rhythm: NSR (EKG NOTED) - Diagnosis Discharge Problem: Palpitation, Generalized weakness Chest pain Qualifiers: Chest pain type: precordial pain Qualified Code(s): R07.2 - Precordial pain UTI (urinary tract infection) Qualifiers: Urinary tract infection type: site unspecified Hematuria presence: without hematuria Qualified Code(s): N39.0 - Urinary tract infection, site not specified - Discharge Plan Disposition: ADMITTED INPATIENT Condition: Stable - Follow ups/Referrals - Instructions
[2017-04-30] MEDS ORDERED: ASPIRIN 81 MG CHEWTAB PO ONE (14:07)
[2017-04-30] MEDS ORDERED: ASPIRIN 81 MG CHEWTAB ONE (14:08)
[2017-04-30 14:30] LABS: BASOPHILS # (AUTO) 0.1 X10^3/uL (0.0-0.1); BASOPHILS % (AUTO) 1.1 % (0.2-1.0); EOSINOPHILS # (AUTO) 0.1 x10^3/uL (0.0-0.2); EOSINOPHILS % (AUTO) 2.5 % (0.9-2.9); HEMATOCRIT 30.4 % (36.0-47.0); HEMOGLOBIN 9.8 g/dL (12.0-16.0); LYMPHOCYTES # (AUTO) 1.1 X10^3/uL (1.3-2.9); LYMPHOCYTES % (AUTO) 18.5 % (21.0-51.0); MEAN CORPUSCULAR HEMOGLOBIN 25.6 pg (27.0-34.0); MEAN CORPUSCULAR HGB CONC 32.3 g/dL (33.0-35.0); MEAN CORPUSCULAR VOLUME 79.4 fL (80.0-100.0); MEAN PLATELET VOLUME 7.5 fL (7.4-11.0); MONOCYTES # (AUTO) 0.4 x10^3/uL (0.3-0.8); MONOCYTES % (AUTO) 6.5 % (0.0-13.0); NEUTROPHILS # (AUTO) 4.2 x10^3/uL (2.2-4.8); NEUTROPHILS % (AUTO) 71.4 % (42.0-75.0); PLATELET COUNT 177 X10^3/uL (150.0-450.0); RED BLOOD COUNT 3.82 X10^6/uL (3.5-5.4); RED CELL DISTRIBUTION WIDTH 14.8 % (11.6-16.5); WHITE BLOOD COUNT 5.9 X10^3/uL (3.6-10.0)
--- NOTE | 2017-04-30 14:30 | RAD ---
HISTORY: Chest pain Study: portable AP chest Comparison: 04/21/2017 Findings: Overlying EKG lead artifact. The heart is less prominent. The pulmonary vessels are less prominent c entrally . The lungs are hyperinflated with mild interstitial prominence throughout which is decreas ed . There is a left pacemaker and bipolar leads in place which are unchanged. No consolidation or e ffusion is seen. IMPRESSION: Overlying EKG lead artifact. Interval decrease in the heart size with resolving central pulmonary congestion . Mild chronic obstructive lung changes and probable underlying chronic interstitial changes with no a cute infiltrate or effusion. Reported By:
[2017-04-30 14:40] LABS: PLATELET MORPHOLOGY COMMENT NORMAL (NORMAL)
[2017-04-30 14:55] LABS: BLOOD UREA NITROGEN 11 mg/dL (7-18); CALCIUM 9.2 mg/dL (8.5-10.1); CARBON DIOXIDE 23.7 mmol/L (21-32); CHLORIDE 109 mmol/L (98-107); COR NA(FOR HYPERGLY) 142 mmol/L (136-145); GLUCOSE 135 mg/dL (65-99); SODIUM 141 mmol/L (136-145); TROPONIN I < 0.02 ng/mL (0-1.5); eGFR BLACK RACES 40 (>60); eGFR NON BLACK RACES 33 (>60)
[2017-04-30 15:00] LABS: ALANINE AMINOTRANSFERASE 14 Units/L (12-78); ALBUMIN 3.3 g/dL (3.4-5.0); ALKALINE PHOSPHATASE 84 Units/L (46-116); ASPARTATE AMINO TRANSFERASE 18 Units/L (15-37); COR CA(FOR HYPOALB) 9.8 mg/dL (8.5-10.1); CREATINE KINASE 25 Units/L (26-192); CREATINE KINASE MB < 1.0 ng/mL (0-4.0); TOTAL PROTEIN 7.6 g/dL (6.4-8.2)
[2017-04-30 15:04] LABS: B-TYPE NATRIURETIC PEPTIDE 244 pg/mL (0-79)
[2017-04-30 16:54] VITALS: BMI 25.8
[2017-04-30] MEDS ORDERED: PREVNAR 13 IM ONE ×2 (16:54→21:29)
[2017-04-30] MEDS: NS 1000 ML 1,000 ML IV SCH (16:56)
[2017-04-30 20:47] LABS: CKMB % 5.3 % (<4); CREATINE KINASE 19 Units/L (26-192); CREATINE KINASE MB < 1.0 ng/mL (0-4.0); TROPONIN I < 0.02 ng/mL (0-1.5)
[2017-04-30] MEDS: MAALOX or MYLANTA PO PRN (21:33)
[2017-05-01 02:36] LABS: BASOPHILS % (AUTO) 0.9 % (0.2-1.0); EOSINOPHILS # (AUTO) 0.2 x10^3/uL (0.0-0.2); EOSINOPHILS % (AUTO) 4.4 % (0.9-2.9); HEMATOCRIT 27.9 % (36.0-47.0); HEMOGLOBIN 9.1 g/dL (12.0-16.0); LYMPHOCYTES # (AUTO) 1.7 X10^3/uL (1.3-2.9); LYMPHOCYTES % (AUTO) 30.8 % (21.0-51.0); MEAN CORPUSCULAR HEMOGLOBIN 25.7 pg (27.0-34.0); MEAN CORPUSCULAR HGB CONC 32.6 g/dL (33.0-35.0); MEAN CORPUSCULAR VOLUME 78.8 fL (80.0-100.0); MEAN PLATELET VOLUME 7.3 fL (7.4-11.0); MONOCYTES # (AUTO) 0.4 x10^3/uL (0.3-0.8); MONOCYTES % (AUTO) 7.9 % (0.0-13.0); NEUTROPHILS # (AUTO) 3.2 x10^3/uL (2.2-4.8); PLATELET COUNT 165 X10^3/uL (150.0-450.0); RED BLOOD COUNT 3.54 X10^6/uL (3.5-5.4); RED CELL DISTRIBUTION WIDTH 15.2 % (11.6-16.5); WHITE BLOOD COUNT 5.7 X10^3/uL (3.6-10.0)
[2017-05-01 02:44] LABS: ALANINE AMINOTRANSFERASE 12 Units/L (12-78); ALBUMIN 2.9 g/dL (3.4-5.0); ALKALINE PHOSPHATASE 73 Units/L (46-116); ASPARTATE AMINO TRANSFERASE 16 Units/L (15-37); BLOOD UREA NITROGEN 9 mg/dL (7-18); CALCIUM 8.6 mg/dL (8.5-10.1); CARBON DIOXIDE 24.9 mmol/L (21-32); CHLORIDE 111 mmol/L (98-107); CHOL/HDL RATIO 2.5 (0.0-5.0); CHOLESTEROL 116 mg/dL (0-200); COR CA(FOR HYPOALB) 9.5 mg/dL (8.5-10.1); CREATININE 1.17 mg/dL (0.55-1.02); GLUCOSE 95 mg/dL (65-99); HDL CHOLESTEROL 47 mg/dL (40-60); HYPOCHROMASIA SLIGHT; PLATELET MORPHOLOGY COMMENT NORMAL (NORMAL); SODIUM 144 mmol/L (136-145); TOTAL PROTEIN 6.6 g/dL (6.4-8.2); TRIGLYCERIDES 82 mg/dL (0-150); eGFR BLACK RACES 57 (>60); eGFR NON BLACK RACES 47 (>60)
[2017-05-01 02:52] LABS: CKMB % 4.8 % (<4); CREATINE KINASE 21 Units/L (26-192); CREATINE KINASE MB < 1.0 ng/mL (0-4.0); TROPONIN I < 0.02 ng/mL (0-1.5)
[2017-05-01] MEDS ORDERED: K-RIDER 10 MEQ/NS 100 ML 10 MEQ/100 ML BAG IV PRN (04:33)
[2017-05-01] MEDS ORDERED: K-DUR TAB 20 MEQ PO PRN (04:33)
[2017-05-01] MEDS ORDERED: K-LYTE EFFERVESCENT PO PRN (04:33)
[2017-05-01] MEDS ORDERED: POTASSIUM CHLORIDE LIQ 20 MEQ UDC PO PRN (04:33)
[2017-05-01 05:32] LABS: BILIRUBIN,URINE NEGATIVE (NEGATIVE); BLOOD/HEMOGLOBIN,URINE 1+ (NEGATIVE); GLUCOSE, URINE NEGATIVE (NEGATIVE); KETONES,URINE NEGATIVE (NEGATIVE); LEUKOCYTE ESTERASE ,URINE 1+ (NEGATIVE); NITRITES,URINE NEGATIVE (NEGATIVE); PROTEIN,URINE NEGATIVE (NEGATIVE); UROBILINOGEN,URINE NORMAL (NORMAL)
[2017-05-01 05:51] LABS: APPEARANCE,URINE CLEAR (CLEAR); BACTERIA,URINE 1+ /HPF (NEGATIVE); COLOR,URINE YELLOW (YELLOW); RBC,URINE 0-2 /HPF (NEGATIVE); SQUAMOUS EPITHELIAL CELL,UR RARE /HPF (NEGATIVE); YEAST,URINE MODERATE /HPF (NEGATIVE)
[2017-05-01] MEDS: NS 1000 ML 1,000 ML IV SCH ×2 (05:58→21:30)
--- NOTE | 2017-05-01 06:50 | RAD ---
HISTORY: Shortness of breath Study: Chest one view Comparison: April 30, 2017 Findings: There is a pacemaker present on the left obscuring a portion of the left mid lung. The heart is enla rged. No congestive heart failure is noted. The aorta is calcified. The lungs are mildly hyperinflat ed but free of acute infiltrates. No pleural effusions are identified. The bony thorax is unremarkab le. IMPRESSION: Cardiomegaly without congestive heart failure Lungs hyperinflated but clear Reported By:
[2017-05-01] MEDS ORDERED: PATIENT'S HOME MEDICATION (Omeprazole [Omeprazole] 40 MG) PO SCH (11:15)
[2017-05-01] MEDS: NORVASC TAB 10 MG PO SCH (12:52)
[2017-05-01] MEDS: BENTYL CAP 10 MG PO SCH ×3 (12:53→21:28)
[2017-05-01] MEDS: SYNTHROID 100 mcg TAB PO SCH (12:53)
[2017-05-01] MEDS: ZOCOR TAB 20 MG PO SCH (12:53)
[2017-05-01] MEDS: ASPIRIN EC 81 MG PO SCH (12:53)
[2017-05-01] MEDS: MESALAMINE PO SCH (12:56)
--- NOTE | 2017-05-01 13:30 | DR.H&P ---
H&P - History & Physical for Day of: H&P Date: 04/30/17 - Chief Complaint Chief Complaint: CHEST PAIN, SHORTNESS OF BREATH, PALPITATIONS - Allergies Allergies/Adverse Reactions: Allergies Allergy/AdvReac Type Severity Reaction Status Date / Time No Known Drug Allergies Allergy Verified 04/30/17 16:28 - History of Present Illness History of Present Illness: MS. DHALIWAL IS A 82YO PATIENT OF OURS WHO PRESENTED TO THE EMERGENCY ROOM WITH COMPLAINTS OF CHEST DISCOMFORT, HEART PALPITATIONS, SHORTNESS OF BREATH, AND INDIGESTION SYMPTOMS THAT STARTED 2 DAYS PRIOR TO COMING TO THE ER. SHE ALSO COMPLAINS OF WEAKNESS, BUT DENIES FEVER OR VOMITING. PATIENT WAS NOTED WITH A NON-PRODUCTIVE COUGH. PATIENT HAS A PACEMAKER. ON ARRIVAL TO ER, VITALS WERE 81, 16, 100%, 118/64. LABS AND XRAYS WERE OBTAINED. CBC WNL EXCEPT HGB 9.8, HCT 30.4. CMP WNL EXCEPT CHLORIDE 109, CREATININE 1.60, GFR 33, GLUCOSE 135, CREATINE KINASE 25, BNP 244, ALBUMIN 3.3. URINALYSIS REPORTS WBC 6-8, LEUKOCYTES 1+, OCCULT BLOOD 1+, AND MODERATE YEAST. CHEST XRAY REPORTED INTERVAL DECREASE IN THE HEART SIZE WITH RESOLVING CENTRAL PULMONARY CONGESTION AND MILD CHRONIC OBSTRUCTIVE LUNG CHANGES WITH NO ACUTE INFILTRATE OR EFFUSION. SHE WAS GIVEN ASPIRIN IN ER. WE ADMITTED PATIENT FOR FURTHER TREATMENT AND EVALUATION. SHE WAS STARTED ON NS AT 30ML/HR AND MAALOX. WE WILL RECHECK LABS AND FOLLOW UP WITH PATIENT IN AM. - Past Medical History Past Medical History: Arthritis, Dyslipidemia, GERD, Hypertension, Hypothyroidism, Kidney Stones, Sleep Apnea Additional Medical History: MACULAR DEGENERATION, DIVERTICULOSIS, UTIS - Past Surgical History Surgical History: Abdominal Surgery, Ortho Surgery Additional Surgical History: PACEMAKER - Family History Family Medical History: Cancer, [place], Coronary Artery Disease - Social History Does patient currently use any type of tobacco product: No Have you used tobacco products in the last 12 months: No Type of Tobacco Use: None Does any household member use tobacco: No Alcohol Use: None Drug Use: None - Medications Home Medications: Ciprofloxacin HCl [CIPRO 500 MG TAB *] 1 tab PO BID 04/30/17 [History Confirmed 04/30/17] Dicyclomine HCl [BENTYL CAP 10 MG *] 1 tab PO TID 04/30/17 [History Confirmed 07 /09/17] Mesalamine [Lialda] 4 tab PO DAILY 04/30/17 [History Confirmed 04/30/17] - Review of Systems Constitutional: No Symptoms Reported. denies: See HPI, Fever, Chills, Sweats, Weakness, Malaise, Other Eyes: No Symptoms Reported. denies: See HPI, Pain, Vision Change, Conjunctivae Inflammation, Eyelid Inflammation, Redness, Other ENT: No Symptoms Reported. denies: See HPI, Ear Pain, Ear Discharge, Nose Pain , Nose Discharge, Nose Congestion, Mouth Pain, Mouth Swelling, Throat Pain, Throat Swelling, Other Respiratory: See HPI, Cough, Shortness of Breath. denies: No Symptoms Reported , Dry, Hemoptysis, SOB with Excertion, Pleuritic Pain, Sputum, Wheezing, Other Cardiovascular: Chest Pain, See HPI Gastrointestinal: Nausea. denies: No Symptoms Reported, See HPI, Vomiting, Abdominal Pain, Diarrhea, Constipation, Melena, Hematochezia, Other Genitourinary: No Symptoms Reported. denies: See HPI, Dysuria, Frequency, Incontinence, Hematuria, Retention, Other Musculoskeletal: No Symptoms Reported. denies: See HPI, Shoulder Pain, Arm Pain , Back Pain, Hand Pain, Leg Pain, Foot Pain, Neck Pain, Other Skin: No Symptoms Reported. denies: See HPI, Rash, Lesions, Jaundice, Bruising , Wound, Ecchymosis, Other Neurological: No Symptoms Reported. denies: See HPI, Weakness, Numbness, Incoordination, Change in Speech, Confusion, Seizures, Other - Physical Exam Vital Signs: Temperature 97.6 F Pulse Rate [Left Brachial] 71 Respiratory Rate 20 Blood Pressure [Right Arm] 146/65 Blood Pressure [Left Arm] 179/75 O2 Sat by Pulse Oximetry 94 Oriented: Normal. negative: Time, Person, Place, Not Oriented, Unable to test, Other Eyes: Normal. negative: Blurred Vision, Diplopia, Discharge, Pain, Redness, Photophobia, Other Ear: Normal Nose: Normal. negative: Injected, Discharge, Blood, Other Throat: Normal. negative: Tonsillar Hypertrophy, Red, Exudate, Dry, Other Respiratory: RLL Rhonchi, LLL Rhonchi. negative: Clear Throughout, Diminished Throughout, Rhonchi Throughout, Rales Throughout, Wheezes Throughout, RUL Clear , RML Clear, RLL Clear, JAMES Clear, LML Clear, LLL Clear, RUL Diminished, RML Diminished, RLL Diminished, JAMES Diminished, LML Diminished, LLL Diminished, RUL Absent, RML Absent, RLL Absent, JAMES Absent, LML Absent, LLL Absent, RUL Rhonchi , RML Rhonchi, JAMES Rhonchi, LML Rhonchi, RUL Insp. Wheeze, RML Insp. Wheeze, RLL Insp. Wheeze, JAMES Insp.Wheeze, LML Insp.Wheeze, LLL Insp.Wheeze, RUL Exp. Wheeze, RML Exp. Wheeze, RLL Exp. Wheeze, JAMES Exp. Wheeze, LML Exp. Wheeze, LLL Exp. Wheeze, RUL Rales, RML Rales, RLL Rales, JAMES Rales, LML Rales, LLL Rales, RUL Rub, RML Rub, RLL Rub, JAMES Rub, LML Rub, LLL Rub, RUL Squeak, RML Squeak, RLL Squeak, JAMES Squeak, LML Squeak, LLL Squeak Cardiovascular: Normal. negative: Tachycardia, Bradycardia, Irregular, S3, S4, Systolic, Diastolic, Murmur, Edema, Other : Normal. negative: Dysuria, Hematuria, Frequency, Discharge, Testicular Pain , Bleeding, , Other Auscultation: Bowel Sounds: Normal. negative: Bruit, Absent, Increased, Decreased, High Pitched, Other Tenderness: Normal. negative: Diffuse, RUQ, RLQ, LUQ, LLQ, Epigastric, Periumbilical, Suprapubic, Mild, Moderate, Severe, Rebound, Guarding, Rigidity, Other Skin: Normal. negative: Decreased Turgur, Rash, Papular, Macular, Maculopapular , Vesicular, Pustular, Petechial, Red, Tender, Hot, Diaphoresis, Wound, Bruising , Ecchymosis, Other Musculoskeletal: Normal. negative: Right, Left, Shoulder, Clavicle, Arm, Elbow , Forearm, Wrist, Hand, Hip, Thigh, Knee, Leg, Ankle, Foot, Back:Thoracic, Back: Lumbar, Back:Midline, Back:Paraspinous, Pelvis, Swelling, Tender, Deformity, Pulse Deficit, Motor Deficit, Sensory Deficit, Instability, Crepitance Psychiatric: Normal. negative: Anxiety, Depression, Agitation, Other Mood Description: Calm. negative: Angry, Apathetic, Depressed, Fearful, Flat, Happy, Hostile, Sad, Suspicious, Withdrawn, Anxious, Appropriate, Labile Affect: Normal Speech Pattern: Clear. negative: Appropriate, Unclear, Inappropriate, Delayed, Slurred, Excessive, Aphasic, Artificially Ventilated - Assessment/Plan (1) Chest pain Qualifiers: Chest pain type: precordial pain Ischemic chest pain type: I Qualified Code(s): R07.2 - Precordial pain Status: Acute Plan: ASPIRIN DAILY, CHECK CARDIAC PROFILES AND EKG, MONITOR (2) Generalized weakness Status: Acute Plan: IVF, CONTINUE TO MONITOR (3) Palpitation Status: Acute Plan: CHECK CARDIAC ENZYMES AND EKG, CONTINUE TO MONITOR
--- NOTE | 2017-05-01 15:01 | PCM.PROG ---
Progress Note - Progress Note for Day of Date: 05/01/17 - Subjective Subjective: IS AWAKE AND ORIENTED ON MORNING ROUND WITH ONLY COMPLAINTS OF SHORTNESS OF BREATH. SHE DENIES ANY CHEST PAIN AT THIS TIME. ON EXAMINATION, SHE IS NOTED WITH WHEEZING BILATERALLY. BOWEL SOUNDS ARE NORMAL IN ALL QUADRANTS. VITALS THIS AM ARE 97.6, 71, 20, 94%, 179/79. LABS THIS MORNING ARE WNL EXCEPT HBG 9.1, HCT 27.9, POTASSIUM 3.3, CHLORIDE 111, CREATININE 1.17, GFR 47, ALBUMIN 2.9. CHEST XRAY REPORTS CARDIOMEGALY WITHOUT CHF. WE WILL CHECK A ECHO AND A CT CHEST WITH CONTRAST. WE WILL RECHECK LABS AND FOLLOW UP WITH PATIENT IN AM. - Past Medical Family Social History Past Med/Fam/Surg Hx: No changes since H&P Allergies: Allergies No Known Drug Allergies Allergy (Verified 04/30/17 16:28) - Review of Systems ROS: No change since H&P - Vital Signs and I&O's Vital Signs: Temperature 97.6 F Pulse Rate [Left Brachial] 71 Respiratory Rate 20 Blood Pressure [Right Arm] 146/65 Blood Pressure [Left Arm] 179/75 O2 Sat by Pulse Oximetry 94 Intake and Output: Intake & Output 04/29/17 04/30/17 05/01/17 05/02/17 11:59 11:59 11:59 11:59 Intake Total 469 Balance 469 - Physical Exam Oriented: Normal. negative: Time, Person, Place, Not Oriented, Unable to test, Other Eyes: Normal. negative: Blurred Vision, Diplopia, Discharge, Pain, Redness, Photophobia, Other Ear: Normal Nose: Normal. negative: Injected, Discharge, Blood, Other Throat: Normal. negative: Tonsillar Hypertrophy, Red, Exudate, Dry, Other Respiratory: Right, Left, Wheezes Cardiovascular: Normal. negative: Tachycardia, Bradycardia, Irregular, S3, S4, Systolic, Diastolic, Murmur, Edema, Other : Normal. negative: Dysuria, Hematuria, Frequency, Discharge, Testicular Pain , Bleeding, , Other Auscultation: Bowel Sounds: Normal. negative: Bruit, Absent, Increased, Decreased, High Pitched, Other Palpation: Normal Tenderness: Normal. negative: Diffuse, RUQ, RLQ, LUQ, LLQ, Epigastric, Periumbilical, Suprapubic, Mild, Moderate, Severe, Rebound, Guarding, Rigidity, Other Skin: Normal. negative: Decreased Turgur, Rash, Papular, Macular, Maculopapular , Vesicular, Pustular, Petechial, Red, Tender, Hot, Diaphoresis, Wound, Bruising , Ecchymosis, Other Musculoskeletal: Normal. negative: Right, Left, Shoulder, Clavicle, Arm, Elbow , Forearm, Wrist, Hand, Hip, Thigh, Knee, Leg, Ankle, Foot, Back:Thoracic, Back: Lumbar, Back:Midline, Back:Paraspinous, Pelvis, Swelling, Tender, Deformity, Pulse Deficit, Motor Deficit, Sensory Deficit, Instability, Crepitance Psychiatric: Normal. negative: Anxiety, Depression, Agitation, Other Mood Description: Calm. negative: Angry, Apathetic, Depressed, Fearful, Flat, Happy, Hostile, Sad, Suspicious, Withdrawn, Anxious, Appropriate, Labile Affect: Normal Speech Pattern: Clear. negative: Appropriate, Unclear, Inappropriate, Delayed, Slurred, Excessive, Aphasic, Artificially Ventilated - Laboratory and Diagnostics Result Diagrams: 05/01/17 02:20 05/01/17 07:03 Labs: Laboratory WBC 5.7 X10^3/uL (3.6-10.0) 05/01/17 02:20 RBC 3.54 X10^6/uL (3.5-5.4) 05/01/17 02:20 Hgb 9.1 g/dL (12.0-16.0) L 05/01/17 02:20 Hct 27.9 % (36.0-47.0) L 05/01/17 02:20 MCV 78.8 fL (80.0-100.0) L 05/01/17 02:20 MCH 25.7 pg (27.0-34.0) L 05/01/17 02:20 MCHC 32.6 g/dL (33.0-35.0) L 05/01/17 02:20 RDW 15.2 % (11.6-16.5) 05/01/17 02:20 Plt Count 165 X10^3/uL (150.0-450.0) 05/01/17 02:20 Plt Count Comment Adequate (ADEQUATE) 05/01/17 02:20 MPV 7.3 fL (7.4-11.0) L 05/01/17 02:20 Neut % 56.0 % (42.0-75.0) 05/01/17 02:20 Lymph % 30.8 % (21.0-51.0) 05/01/17 02:20 [place] % 7.9 % (0.0-13.0) 05/01/17 02:20 Eos % 4.4 % (0.9-2.9) H 05/01/17 02:20 Baso % 0.9 % (0.2-1.0) 05/01/17 02:20 Neut # 3.2 x10^3/uL (2.2-4.8) 05/01/17 02:20 Lymph # 1.7 X10^3/uL (1.3-2.9) 05/01/17 02:20 [place] # 0.4 x10^3/uL (0.3-0.8) 05/01/17 02:20 Eos # 0.2 x10^3/uL (0.0-0.2) 05/01/17 02:20 Baso # 0.0 X10^3/uL (0.0-0.1) 05/01/17 02:20 Absolute Nucleated RBC 0.0 /100WBC 05/01/17 02:20 Plt Morphology Comment Normal (NORMAL) 05/01/17 02:20 RBC Morphology Abnormal (NORMAL) A 05/01/17 02:20 Hypochromasia Slight A 05/01/17 02:20 Sodium 144 mmol/L (136-145) 05/01/17 02:20 Corrected Sodium TNP 05/01/17 02:20 Potassium 4.7 mmol/L (3.5-5.1) 05/01/17 07:03 Chloride 111 mmol/L (98-107) H 05/01/17 02:20 Carbon Dioxide 24.9 mmol/L (21-32) 05/01/17 02:20 BUN 9 mg/dL (7-18) 05/01/17 02:20 Creatinine 1.17 mg/dL (0.55-1.02) H 05/01/17 02:20 Est GFR (MDRD) Af Amer 57 (>60) L 05/01/17 02:20 Est GFR (MDRD) Non-Af 47 (>60) L 05/01/17 02:20 Glucose 95 mg/dL (65-99) 05/01/17 02:20 Calcium 8.6 mg/dL (8.5-10.1) 05/01/17 02:20 Corrected Calcium 9.5 mg/dL (8.5-10.1) 05/01/17 02:20 Total Bilirubin 0.20 mg/dL (0.2-1.0) 05/01/17 02:20 AST 16 Units/L (15-37) 05/01/17 02:20 ALT 12 Units/L (12-78) 05/01/17 02:20 Alkaline Phosphatase 73 Units/L (46-116) 05/01/17 02:20 Creatine Kinase 21 Units/L (26-192) L 05/01/17 02:20 CK-MB (CK-2) < 1.0 ng/mL (0-4.0) 05/01/17 02:20 CK/CKMB % Calc 4.8 % (<4) 05/01/17 02:20 Troponin I < 0.02 ng/mL (0-1.5) 05/01/17 02:20 B-Natriuretic Peptide 244 pg/mL (0-79) H 04/30/17 14:12 Total Protein 6.6 g/dL (6.4-8.2) 05/01/17 02:20 Albumin 2.9 g/dL (3.4-5.0) L 05/01/17 02:20 Globulin 3.7 g/dL (2.5-4.5) 05/01/17 02:20 Albumin/Globulin Ratio 0.8 Ratio (1.1-2.1) L 05/01/17 02:20 Triglycerides 82 mg/dL (0-150) 05/01/17 02:20 Cholesterol 116 mg/dL (0-200) 05/01/17 02:20 LDL Cholesterol, Calc 53 mg/dL (0-100) 05/01/17 02:20 HDL Cholesterol 47 mg/dL (40-60) 05/01/17 02:20 Cholesterol/HDL Ratio 2.5 (0.0-5.0) 05/01/17 02:20 Specimen Type Clean catch urine 05/01/17 05:21 Urine Color Yellow (YELLOW) 05/01/17 05:21 Urine Appearance Clear (CLEAR) 05/01/17 05:21 Urine pH 6.0 (5.0 - 8.0) 05/01/17 05:21 Ur Specific [place] 1.015 (1.000-1.030) 05/01/17 05:21 Urine Protein Negative (NEGATIVE) 05/01/17 05:21 Urine Glucose (UA) Negative (NEGATIVE) 05/01/17 05:21 Urine Ketones Negative (NEGATIVE) 05/01/17 05:21 Urine Occult Blood 1+ (NEGATIVE) 05/01/17 05:21 Urine Nitrite Negative (NEGATIVE) 05/01/17 05:21 Urine Bilirubin Negative (NEGATIVE) 05/01/17 05:21 Urine Urobilinogen Normal (NORMAL) 05/01/17 05:21 Ur Leukocyte Esterase 1+ (NEGATIVE) 05/01/17 05:21 Urine RBC 0-2 /HPF (NEGATIVE) 05/01/17 05:21 Urine WBC 6-8 /HPF (NEGATIVE) 05/01/17 05:21 Ur Squamous Epith Cells Rare /HPF (NEGATIVE) 05/01/17 05:21 Urine Bacteria 1+ /HPF (NEGATIVE) 05/01/17 05:21 Urine Yeast Moderate /HPF (NEGATIVE) 05/01/17 05:21 Ur Culture Indicated? Yes/culture set up 05/01/17 05:21 - Plan (1) Chest pain Status: Acute Qualifiers: Chest pain type: precordial pain Ischemic chest pain type: I Qualified Code(s): R07.2 - Precordial pain Plan: ASPIRIN DAILY, CHECK CARDIAC PROFILES AND EKG, MONITOR (2) Generalized weakness Status: Acute Plan: IVF, CONTINUE TO MONITOR (3) Palpitation Status: Acute Plan: CHECK CARDIAC ENZYMES AND EKG, CONTINUE TO MONITOR
[2017-05-01] MEDS ORDERED: NS 100 ML IV 100 ML IV ONE (15:31)
--- NOTE | 2017-05-01 16:11 | CT ---
History: Shortness of breath and chest pain Study: Multi environmental planner CT thorax with IV contrast Comparison: None Findings coal the lungs are hyperinflated without mass or consolidation. There are increased interst itial lung markings in there is centrilobular emphysema. There is no pleural effusion. There are pro minent nonspecific mediastinal lymph nodes and mild right hilar adenopathy. No pulmonary embolus is demonstrated. There is heavy atherosclerotic calcification in the thoracic aorta. There is a moderat hank severe T8 compression fracture. There is mild splenomegaly. There is a 1 centimeter low-attenuat ion right adrenal nodule peer there are small left renal cysts. There is a small calculus in the low er pole of the left kidney. Impression: 1. Centrilobular emphysema and chronic interstitial lung disease 2. Nonspecific shoddy mediastinal lymph nodes that are likely reactive 3. Osteoporotic moderate T8 compression fracture 4. Mild splenomegaly 5. 1 centimeter right adrenal nodule likely representing an adenoma Reported By:
[2017-05-01] MEDS ORDERED: ZOLOFT PO ONE (20:42)
[2017-05-01] MEDS: ZOLOFT PO SCH (21:28)
[2017-05-02 04:53] LABS: BASOPHILS # (AUTO) 0.1 X10^3/uL (0.0-0.1); BASOPHILS % (AUTO) 1.4 % (0.2-1.0); EOSINOPHILS # (AUTO) 0.3 x10^3/uL (0.0-0.2); EOSINOPHILS % (AUTO) 4.6 % (0.9-2.9); HEMATOCRIT 28.8 % (36.0-47.0); HEMOGLOBIN 9.4 g/dL (12.0-16.0); LYMPHOCYTES # (AUTO) 2.1 X10^3/uL (1.3-2.9); LYMPHOCYTES % (AUTO) 31.8 % (21.0-51.0); MEAN CORPUSCULAR HEMOGLOBIN 25.4 pg (27.0-34.0); MEAN CORPUSCULAR HGB CONC 32.5 g/dL (33.0-35.0); MEAN CORPUSCULAR VOLUME 78.3 fL (80.0-100.0); MEAN PLATELET VOLUME 7.7 fL (7.4-11.0); MONOCYTES # (AUTO) 0.4 x10^3/uL (0.3-0.8); NEUTROPHILS # (AUTO) 3.7 x10^3/uL (2.2-4.8); NEUTROPHILS % (AUTO) 56.2 % (42.0-75.0); PLATELET COUNT 176 X10^3/uL (150.0-450.0); RED BLOOD COUNT 3.68 X10^6/uL (3.5-5.4); WHITE BLOOD COUNT 6.5 X10^3/uL (3.6-10.0)
[2017-05-02 05:09] LABS: ALANINE AMINOTRANSFERASE 12 Units/L (12-78); ALBUMIN 2.8 g/dL (3.4-5.0); ALKALINE PHOSPHATASE 70 Units/L (46-116); ASPARTATE AMINO TRANSFERASE 17 Units/L (15-37); BLOOD UREA NITROGEN 6 mg/dL (7-18); CALCIUM 8.3 mg/dL (8.5-10.1); CARBON DIOXIDE 22.9 mmol/L (21-32); CHLORIDE 110 mmol/L (98-107); COR CA(FOR HYPOALB) 9.3 mg/dL (8.5-10.1); CREATININE 0.95 mg/dL (0.55-1.02); GLUCOSE 79 mg/dL (65-99); SODIUM 142 mmol/L (136-145); TOTAL PROTEIN 6.7 g/dL (6.4-8.2); eGFR BLACK RACES > 60 (>60); eGFR NON BLACK RACES > 60 (>60)
[2017-05-02 05:52] LABS: HYPOCHROMASIA SLIGHT; PLATELET MORPHOLOGY COMMENT NORMAL (NORMAL)
[2017-05-02] MEDS: BENTYL CAP 10 MG PO SCH ×3 (05:52→21:36)
--- NOTE | 2017-05-02 06:20 | RAD ---
HISTORY: Chest pain Study: Chest one view Comparison: May 01, 2017 plain film and chest CT Findings: There is a pacemaker present on the left. The heart is mildly enlarged. The siomara are normal. The aor ta is calcified. No congestive heart failure is noted. The lungs remain hyperinflated but free of ac [place] alveolar infiltrates. No pleural effusions are identified. The bony thorax is unremarkable. IMPRESSION: Cardiomegaly without congestive heart failure Lungs remain hyperinflated but clear Reported By:
[2017-05-02] MEDS ORDERED: PENTASA CR PO SCH (09:00)
[2017-05-02] MEDS ORDERED: MORPHINE SULFATE INJ 2 MG IVP PRN (09:25)
[2017-05-02] MEDS: ZOCOR TAB 20 MG PO SCH (10:18)
[2017-05-02] MEDS: ASPIRIN EC 81 MG PO SCH (10:19)
[2017-05-02] MEDS: NORVASC TAB 10 MG PO SCH (10:19)
[2017-05-02] MEDS: SYNTHROID 100 mcg TAB PO SCH (10:20)
[2017-05-02] MEDS: PriLOSEC PO SCH (10:20)
[2017-05-02] MEDS: MESALAMINE PO SCH (10:21)
[2017-05-02] MEDS: NS 1000 ML 1,000 ML IV SCH ×2 (10:56→23:53)
--- NOTE | 2017-05-02 12:24 | PCM.PROG ---
Progress Note - Progress Note for Day of Date: 05/02/17 - Subjective Subjective: IS AWAKE AND ORIENTED ON MORNING ROUND WITH COMPLAINTS OF SHORTNESS OF BREATH AND UPPER BACK PAIN. SHE STATED THAT HER BACK STARTED HURTING WHEN SHE FELL A FEW WEEKS AGO. SHE DENIES ANY CHEST PAIN AT THIS TIME. ON EXAMINATION, SHE IS NOTED WITH WHEEZING BILATERALLY. BOWEL SOUNDS ARE NORMAL IN ALL QUADRANTS. VITALS THIS AM ARE 98.3,72,18,95,134/61. LABS THIS MORNING ARE WNL EXCEPT HBG 9.4, HCT 28.8, CHLORIDE 110, ALBUMIN 2.8. CHEST XRAY REPORTS CARDIOMEGALY WITHOUT CHF. 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 ECHO REPORTED EJECTION FRACTION 55%.WE WILL CONSULT WITH ORTHOPEDICS, START TORADOL 15MG IV Q6H PRN, AND MORPHINE 1MG IV Q4H. WE WILL RECHECK LABS AND FOLLOW UP WITH PATIENT IN AM. - Past Medical Family Social History Past Med/Fam/Surg Hx: No changes since H&P Allergies: Allergies No Known Drug Allergies Allergy (Verified 04/30/17 16:28) - Review of Systems ROS: No change since H&P - Vital Signs and I&O's Vital Signs: Temperature 98.3 F Pulse Rate [Left Brachial] 72 Respiratory Rate 18 Blood Pressure [Right Arm] 130/61 Blood Pressure [Left Arm] 134/61 O2 Sat by Pulse Oximetry 95 Intake and Output: Intake & Output 04/30/17 05/01/17 05/02/17 05/03/17 11:59 11:59 11:59 11:59 Intake Total 469 1813 Output Total 3 Balance 469 1810 - Physical Exam Oriented: Normal. negative: Time, Person, Place, Not Oriented, Unable to test, Other Eyes: Normal. negative: Blurred Vision, Diplopia, Discharge, Pain, Redness, Photophobia, Other Ear: Normal Nose: Normal. negative: Injected, Discharge, Blood, Other Throat: Normal. negative: Tonsillar Hypertrophy, Red, Exudate, Dry, Other Respiratory: Right, Left, Wheezes Cardiovascular: Normal. negative: Tachycardia, Bradycardia, Irregular, S3, S4, Systolic, Diastolic, Murmur, Edema, Other : Normal. negative: Dysuria, Hematuria, Frequency, Discharge, Testicular Pain , Bleeding, , Other Auscultation: Bowel Sounds: Normal. negative: Bruit, Absent, Increased, Decreased, High Pitched, Other Tenderness: Normal. negative: Diffuse, RUQ, RLQ, LUQ, LLQ, Epigastric, Periumbilical, Suprapubic, Mild, Moderate, Severe, Rebound, Guarding, Rigidity, Other Skin: Normal. negative: Decreased Turgur, Rash, Papular, Macular, Maculopapular , Vesicular, Pustular, Petechial, Red, Tender, Hot, Diaphoresis, Wound, Bruising , Ecchymosis, Other Musculoskeletal: Normal. negative: Right, Left, Shoulder, Clavicle, Arm, Elbow , Forearm, Wrist, Hand, Hip, Thigh, Knee, Leg, Ankle, Foot, Back:Thoracic, Back: Lumbar, Back:Midline, Back:Paraspinous, Pelvis, Swelling, Tender, Deformity, Pulse Deficit, Motor Deficit, Sensory Deficit, Instability, Crepitance Psychiatric: Normal. negative: Anxiety, Depression, Agitation, Other Mood Description: Calm. negative: Angry, Apathetic, Depressed, Fearful, Flat, Happy, Hostile, Sad, Suspicious, Withdrawn, Anxious, Appropriate, Labile Affect: Normal Speech Pattern: Clear - Laboratory and Diagnostics Result Diagrams: 05/02/17 03:20 05/02/17 03:20 Labs: 05/01/17 05:21 Urine,Clean Catch Urine Culture - Final Laboratory WBC 6.5 X10^3/uL (3.6-10.0) 05/02/17 03:20 RBC 3.68 X10^6/uL (3.5-5.4) 05/02/17 03:20 Hgb 9.4 g/dL (12.0-16.0) L 05/02/17 03:20 Hct 28.8 % (36.0-47.0) L 05/02/17 03:20 MCV 78.3 fL (80.0-100.0) L 05/02/17 03:20 MCH 25.4 pg (27.0-34.0) L 05/02/17 03:20 MCHC 32.5 g/dL (33.0-35.0) L 05/02/17 03:20 RDW 15.0 % (11.6-16.5) 05/02/17 03:20 Plt Count 176 X10^3/uL (150.0-450.0) 05/02/17 03:20 Plt Count Comment Adequate (ADEQUATE) 05/02/17 03:20 MPV 7.7 fL (7.4-11.0) 05/02/17 03:20 Neut % 56.2 % (42.0-75.0) 05/02/17 03:20 Lymph % 31.8 % (21.0-51.0) 05/02/17 03:20 [place] % 6.0 % (0.0-13.0) 05/02/17 03:20 Eos % 4.6 % (0.9-2.9) H 05/02/17 03:20 Baso % 1.4 % (0.2-1.0) H 05/02/17 03:20 Neut # 3.7 x10^3/uL (2.2-4.8) 05/02/17 03:20 Lymph # 2.1 X10^3/uL (1.3-2.9) 05/02/17 03:20 [place] # 0.4 x10^3/uL (0.3-0.8) 05/02/17 03:20 Eos # 0.3 x10^3/uL (0.0-0.2) H 05/02/17 03:20 Baso # 0.1 X10^3/uL (0.0-0.1) 05/02/17 03:20 Absolute Nucleated RBC 0.0 /100WBC 05/02/17 03:20 Plt Morphology Comment Normal (NORMAL) 05/02/17 03:20 RBC Morphology Abnormal (NORMAL) A 05/02/17 03:20 Hypochromasia Slight A 05/02/17 03:20 Sodium 142 mmol/L (136-145) 05/02/17 03:20 Corrected Sodium TNP 05/02/17 03:20 Potassium 3.8 mmol/L (3.5-5.1) 05/02/17 03:20 Chloride 110 mmol/L (98-107) H 05/02/17 03:20 Carbon Dioxide 22.9 mmol/L (21-32) 05/02/17 03:20 BUN 6 mg/dL (7-18) L 05/02/17 03:20 Creatinine 0.95 mg/dL (0.55-1.02) 05/02/17 03:20 Est GFR (MDRD) Af Amer > 60 (>60) 05/02/17 03:20 Est GFR (MDRD) Non-Af > 60 (>60) 05/02/17 03:20 Glucose 79 mg/dL (65-99) 05/02/17 03:20 Calcium 8.3 mg/dL (8.5-10.1) L 05/02/17 03:20 Corrected Calcium 9.3 mg/dL (8.5-10.1) 05/02/17 03:20 Total Bilirubin 0.20 mg/dL (0.2-1.0) 05/02/17 03:20 AST 17 Units/L (15-37) 05/02/17 03:20 ALT 12 Units/L (12-78) 05/02/17 03:20 Alkaline Phosphatase 70 Units/L (46-116) 05/02/17 03:20 Creatine Kinase 21 Units/L (26-192) L 05/01/17 02:20 CK-MB (CK-2) < 1.0 ng/mL (0-4.0) 05/01/17 02:20 CK/CKMB % Calc 4.8 % (<4) 05/01/17 02:20 Troponin I < 0.02 ng/mL (0-1.5) 05/01/17 02:20 B-Natriuretic Peptide 244 pg/mL (0-79) H 04/30/17 14:12 Total Protein 6.7 g/dL (6.4-8.2) 05/02/17 03:20 Albumin 2.8 g/dL (3.4-5.0) L 05/02/17 03:20 Globulin 3.9 g/dL (2.5-4.5) 05/02/17 03:20 Albumin/Globulin Ratio 0.7 Ratio (1.1-2.1) L 05/02/17 03:20 Triglycerides 82 mg/dL (0-150) 05/01/17 02:20 Cholesterol 116 mg/dL (0-200) 05/01/17 02:20 LDL Cholesterol, Calc 53 mg/dL (0-100) 05/01/17 02:20 HDL Cholesterol 47 mg/dL (40-60) 05/01/17 02:20 Cholesterol/HDL Ratio 2.5 (0.0-5.0) 05/01/17 02:20 Specimen Type Clean catch urine 05/01/17 05:21 Urine Color Yellow (YELLOW) 05/01/17 05:21 Urine Appearance Clear (CLEAR) 05/01/17 05:21 Urine pH 6.0 (5.0 - 8.0) 05/01/17 05:21 Ur Specific [place] 1.015 (1.000-1.030) 05/01/17 05:21 Urine Protein Negative (NEGATIVE) 05/01/17 05:21 Urine Glucose (UA) Negative (NEGATIVE) 05/01/17 05:21 Urine Ketones Negative (NEGATIVE) 05/01/17 05:21 Urine Occult Blood 1+ (NEGATIVE) 05/01/17 05:21 Urine Nitrite Negative (NEGATIVE) 05/01/17 05:21 Urine Bilirubin Negative (NEGATIVE) 05/01/17 05:21 Urine Urobilinogen Normal (NORMAL) 05/01/17 05:21 Ur Leukocyte Esterase 1+ (NEGATIVE) 05/01/17 05:21 Urine RBC 0-2 /HPF (NEGATIVE) 05/01/17 05:21 Urine WBC 6-8 /HPF (NEGATIVE) 05/01/17 05:21 Ur Squamous Epith Cells Rare /HPF (NEGATIVE) 05/01/17 05:21 Urine Bacteria 1+ /HPF (NEGATIVE) 05/01/17 05:21 Urine Yeast Moderate /HPF (NEGATIVE) 05/01/17 05:21 Ur Culture Indicated? Yes/culture set up 05/01/17 05:21 - Plan (1) Chest pain Status: Acute Qualifiers: Chest pain type: precordial pain Ischemic chest pain type: I Qualified Code(s): R07.2 - Precordial pain Plan: ASPIRIN DAILY, CHECK CARDIAC PROFILES AND EKG, MONITOR (2) Generalized weakness Status: Acute Plan: IVF, CONTINUE TO MONITOR (3) Palpitation Status: Acute Plan: CHECK CARDIAC ENZYMES AND EKG, CONTINUE TO MONITOR (4) Back pain Status: Acute Qualifiers: Back pain location: thoracic back pain Chronicity: acute Back pain laterality: midline Sciatica presence: S Sciatica laterality: S Qualified Code(s): M54.6 - Pain in thoracic spine Plan: TORADOL IV, MORPHINE IV, CONTINUE TO MONITOR (5) Compression fracture of body of thoracic vertebra Status: Acute Plan: ORTHOPEDIC CONSULT, TORADOL IV, MORPHINE IV, CONTINUE TO MONITOR
[2017-05-02] MEDS: TORADOL 15 MG VIAL IVP PRN ×2 (12:26→22:28)
--- NOTE | 2017-05-02 14:43 | RAD ---
History: Left shoulder pain Technique: Three views of the left shoulder Comparison:NONE Findings: The soft tissues are grossly unremarkable. There is no acute fracture or dislocation. There is m oderate acromioclavicular osteoarthrosis and mild glenohumeral osteoarthrosis.. Impression: 1. No acute osseous abnormalities identified. 2. Mild glenohumeral and moderate AC osteoarthrosis Reported By:
--- NOTE | 2017-05-02 14:44 | RAD ---
History: Right shoulder pain Technique: Three views of the right shoulder Comparison:NONE Findings: The soft tissues are grossly unremarkable. There is no acute fracture or dislocation. There is m oderate acromioclavicular osteoarthrosis.. Impression: 1. No acute osseous abnormalities identified. 2. Moderate AC osteoarthrosis Reported By:
[2017-05-02] MEDS: DUONEB 0.5 MG/3 MG NEB SCH (20:26)
[2017-05-02] MEDS ORDERED: ZOLOFT PO ONE (21:17)
[2017-05-02] MEDS: ZOLOFT PO SCH (21:36)
[2017-05-03] MEDS: MAALOX or MYLANTA PO PRN
[2017-05-03] MEDS: BENTYL CAP 10 MG PO SCH (05:23)
[2017-05-03 05:43] LABS: ALANINE AMINOTRANSFERASE 12 Units/L (12-78); ALBUMIN 2.8 g/dL (3.4-5.0); ALKALINE PHOSPHATASE 70 Units/L (46-116); ASPARTATE AMINO TRANSFERASE 20 Units/L (15-37); BLOOD UREA NITROGEN 8 mg/dL (7-18); CALCIUM 8.2 mg/dL (8.5-10.1); CARBON DIOXIDE 22.3 mmol/L (21-32); CHLORIDE 110 mmol/L (98-107); COR CA(FOR HYPOALB) 9.2 mg/dL (8.5-10.1); CREATININE 1.05 mg/dL (0.55-1.02); GLUCOSE 82 mg/dL (65-99); SODIUM 143 mmol/L (136-145); TOTAL PROTEIN 6.7 g/dL (6.4-8.2); eGFR BLACK RACES > 60 (>60); eGFR NON BLACK RACES 54 (>60)
[2017-05-03 06:14] LABS: BASOPHILS # (AUTO) 0.1 X10^3/uL (0.0-0.1); EOSINOPHILS # (AUTO) 0.2 x10^3/uL (0.0-0.2); EOSINOPHILS % (AUTO) 3.5 % (0.9-2.9); HEMATOCRIT 29.2 % (36.0-47.0); HEMOGLOBIN 9.6 g/dL (12.0-16.0); LYMPHOCYTES % (AUTO) 30.2 % (21.0-51.0); MEAN CORPUSCULAR HEMOGLOBIN 25.8 pg (27.0-34.0); MEAN CORPUSCULAR VOLUME 78.2 fL (80.0-100.0); MONOCYTES # (AUTO) 0.4 x10^3/uL (0.3-0.8); MONOCYTES % (AUTO) 5.6 % (0.0-13.0); NEUTROPHILS % (AUTO) 59.7 % (42.0-75.0); PLATELET COUNT 172 X10^3/uL (150.0-450.0); RED BLOOD COUNT 3.73 X10^6/uL (3.5-5.4); RED CELL DISTRIBUTION WIDTH 14.8 % (11.6-16.5); WHITE BLOOD COUNT 6.7 X10^3/uL (3.6-10.0)
[2017-05-03 06:50] LABS: PLATELET MORPHOLOGY COMMENT NORMAL (NORMAL)
[2017-05-03 06:51] LABS: HYPOCHROMASIA SLIGHT
--- NOTE | 2017-05-03 07:08 | RAD ---
HISTORY: Chest pain Study: Chest one view Comparison: May 02, 2017 Findings: There is a pacemaker present on the left obscuring a portion of the left mid lung. The heart is enla rged. No congestive heart failure is noted. No acute alveolar infiltrates are present. No pleural ef fusions are identified. Hyperinflation is present. The bony thorax is unremarkable. IMPRESSION: Cardiomegaly without congestive heart failure Lungs hyperinflated but clear Reported By:
[2017-05-03 08:00] VITALS: BP 148/71
[2017-05-03] MEDS: PriLOSEC PO SCH (08:47)
[2017-05-03] MEDS: MESALAMINE PO SCH (08:47)
[2017-05-03] MEDS: ASPIRIN EC 81 MG PO SCH (08:47)
[2017-05-03] MEDS: SYNTHROID 100 mcg TAB PO SCH (08:48)
[2017-05-03] MEDS: ZOCOR TAB 20 MG PO SCH (08:48)
[2017-05-03] MEDS: NORVASC TAB 10 MG PO SCH (08:48)
[2017-05-03] MEDS: DUONEB 0.5 MG/3 MG NEB SCH (09:15)
--- NOTE | 2017-05-03 14:05 | DR.CONSULT ---
Consult - Consultation for Day of: Date: 05/02/17 (thank you for the consult) - Chief Complaint Chief Complaint: The thoracic pain. Also complains of some bilateral shoulder pain. Seems like the shoulder is bothering her more than the back pain at this time. History of fall or winter months ago noticed pain in the back. Patient reports getting better. X-ray of the chest for an incidental T8 compression fracture. An MRIwhich showed stable compression fra8 with less than 50% compression of the body. Neurological symptoms is negative. - Allergies Allergies/Adverse Reactions: Allergies Allergy/AdvReac Type Severity Reaction Status Date / Time No Known Drug Allergies Allergy Verified 04/30/17 16:28 - History of Present Illness History of Present Illness: no neurologic symptoms at this time. Pain seems to be getting better. Examination of her both upper limits problems or motor, sensory and reflexes is negative for any abnormal findings. - Past Medical History Past Medical History: Arthritis, Dyslipidemia, GERD, Hypertension, Hypothyroidism, Kidney Stones, Sleep Apnea Additional Medical History: MACULAR DEGENERATION, DIVERTICULOSIS, UTIS - Past Surgical History Surgical History: Abdominal Surgery, Ortho Surgery Additional Surgical History: PACEMAKER - Family History Family Medical History: Cancer, [place], Coronary Artery Disease - Social History Does patient currently use any type of tobacco product: No Have you used tobacco products in the last 12 months: No Type of Tobacco Use: None Does any household member use tobacco: No Alcohol Use: None Drug Use: None - Medications Home Medications: Ciprofloxacin HCl [CIPRO 500 MG TAB *] 1 tab PO BID 04/30/17 [History Confirmed 04/30/17] Dicyclomine HCl [BENTYL CAP 10 MG *] 1 tab PO TID 04/30/17 [History Confirmed ] Mesalamine [Lialda] 4 tab PO DAILY 04/30/17 [History Confirmed 04/30/17] - Review of Systems Musculoskeletal: Shoulder Pain, Back Pain - Physical Exam Vital Signs: Temperature 97.8 F Pulse Rate [Right Brachial] 69 Pulse Rate 83 Respiratory Rate 18 Blood Pressure [Right Arm] 148/71 O2 Sat by Pulse Oximetry 98 Musculoskeletal: Right, Left, Shoulder, Back:Thoracic, Back:Midline, Tender, Crepitance - Plan Plan: x-rays of both shoulders. MRI is reviewed. Seems to be a compression fracture which does not require operative intervention at this time. Patient reports her pain is getting better. follow-up in 4 weeks in the office. X- rays of both shoulder were also reviewed. Shows early degenerative changes. No active intervention as of now. I advised nonsteroidal anti-inflammatories and physical therapy for both shoulders. Follow-up in my office in 4 weeks.
== END 2017-05-03 10:39 | disposition home or self-care (01) | DRG 313 ==
LOC: ER 13:52 → MED/SURG 16:06 → OBSVTOIN 05-02 08:00
PROVIDERS: ADMIT Internal Medicine; ATTEND Internal Medicine
PROC: 3E0234Z Introduction of Serum, Toxoid and Vaccine into Muscle, Percutaneous Approach (ICD-10-PCS; principal; 2017-04-30)
DX: R07.2 Precordial pain (principal); R00.2 Palpitations; K21.9 Gastro-esophageal reflux disease without esophagitis; I10 Essential (primary) hypertension; R53.1 Weakness; N39.0 Urinary tract infection, site not specified; R94.31 Abnormal electrocardiogram [ECG] [EKG]; Z79.899 Other long term (current) drug therapy; R94.30 Abnormal result of cardiovascular function study, unspecified; E03.8 Other specified hypothyroidism; Z95.0 Presence of cardiac pacemaker; E78.2 Mixed hyperlipidemia; M54.6 Pain in thoracic spine; M48.54XA Collapsed vertebra, not elsewhere classified, thoracic region, initial encounter for fracture; I51.7 Cardiomegaly; M25.512 Pain in left shoulder; M25.511 Pain in right shoulder; Z23 Encounter for immunization
CPT/HCPCS: 36415; 71010; 71260; 73030; 80053; 80061; 81001; 82550; 82553; 83880; 84132; 84484; 85025; 87086; 93005; 93306; 94640; 94760; 96365; 99284; A4222; G8979; G8980; 90670; G0378; J7620

== ENCOUNTER 2020-03-08 12:01 | Inpatient (IN) ==
--- NOTE | 2020-03-08 12:35 | ED.ABDFE ---
HPI Time Seen Time Seen by Provider: 03/08/20 12:35 PCP Primary Care Physician: BRADNIE SAGE HPI Comment HPI Comment: PATIENT IS 84YR OLD WHITE FEMALE IN ER WITH EPIGASTRIC ABDOMINA PAIN AND LOWER BACK PAIN TIMES ONE WEEK. PAIN ASSOCIATED WITH NAUSEA, GENERALIZES WEAKNEE, CHILLS AND ANOREXIA. PAIN IS 7/10, SHARP THAT INCREASES WITH MOVEMENT AND FOOD AND INPROVE WITH LYING STILL. HISTORY HERNIA SURGERY AND PATIENT BELIEVES HERNIA MAY BE CAUSING PAIN. SHE IS CONSTIPATED, TOOK STOOL SOFTNER WITH POOR RESPONSE. BOWEL MOVEMENT IN ER CONTAIN MODERATE AMOUNT OF BLOOD. SEEN IN PCP OFFICE AND STARTED ON BACTRIM DS FOR UTI. Complaint Doctors Chief Complaint Comments: ABDOMINAL PAIN AND LOWER BACK PAIN TIMES ONE WEEK. Chief Complaint:: PT. C/O ABDOMINAL PAIN X 1 WEEK. PT. THINKS IT IS HERNIA RELATED. PT. ALSO C/O CONSTIPATION, WEAKNESS, CHILLS, NAUSEA AND DECREASED APPETITE. PT. IS CURRENTLY ON BACTRIM FOR A UTI. PT. SEEN PCP MONDAY. COVID-19 Coronavirus risk:travel/contact w/high risk person: No Has patient experienced Coronavirus symptoms: No Reviewed Nurses Notes Review: Yes Source History Provided: Patient Mode of arrival Mode of Arrival: Ambulatory Timing Onset of Chief Complaint: 03/01/20 Came on: Suddenly Duration Since Onset: Constant Duration: Days Location Location: Epigastric Severity Severity: Moderate Quality Quality: Sharp Context History of: Abdominal surgery Modifying factors Worsening Factors: Exertion and Food Improving Factors: Lying Still Associated signs and symptoms Associated Signs and Symptoms: Nausea and Diarrhea PMH PMH Past Medical History: Yes Past Medical History: Arthritis, Dyslipidemia, GERD, Hypertension, Hypothyroidism, Kidney Stones and Sleep Apnea Past Surgical History: Yes Surgical History: Abdominal Surgery, 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 HELPER Surgery, Ortho Surgery and Other Past Surgical History Comment: HERNIA REPAIR Family History History of Family Medical Conditions: Yes Family Medical History: Diabetes Mellitus, Cancer, [place], Coronary Artery Disease and Hypertension Social History Does patient currently use any type of tobacco product: No Have you used tobacco products in the last 12 months: No Type of Tobacco Use: None Does any household member use tobacco: No Alcohol Use: None Do you use any recreational Drugs:: No Lives With: Family Lives Where: Home Travel Risk Coronavirus risk:travel/contact w/high risk person: No Has patient experienced Coronavirus symptoms: No Infectious screening In the last 2 months have you had wt loss of >10#?: NO Have you had fever, night sweats or hemotysis?: No Have you traveled outside the country in the last 6 months?: No Isolation: Standard ROS Review of Systems Constitutional: See HPI, Weakness and Fatigue; negative Fever Eyes: No Symptoms Reported and See HPI; negative Blurred Vision and Diplopia ENTM: No Symptoms Reported and See HPI; negative Ear Pain, Nose Discharge, Nose Congestion and Throat Pain Respiratoy: See HPI and Short of Breath; negative Moist Cough and Wheezing Cardiovascular: No Symptoms Reported, See HPI and Palpitations; negative Chest Pain and Edema Gastrointestinal/Abdominal: No Symptoms Reported, See HPI, Abdominal Pain, Constipation and Nausea Genitourinary: No Symptoms Reported, See HPI and Frequency; negative Dysuria and Hematuria Neurological: See HPI and Weakness; negative Headache and Dizziness Musculoskeletal: No Symptoms Reported, See HPI and Muscle Pain; negative Back Pain Integumentary: No Symptoms Reported and See HPI; negative Change in Color, Rash and Juandice Hematologic/Lymphatic: See HPI and Easy Bruising; negative Swollen Glands Endocrine: See HPI and Increased Thirst; negative Increased Urine Psychiatric: No Symptoms Reported and See HPI All Other Systems: Reviewed and Negative PE Vital Signs Vitals: Temperature 97.6 F Pulse Rate 68 Respiratory Rate 17 Blood Pressure [Right Arm] 148/71 Blood Pressure [Left Arm] 134/61 Blood Pressure [Right Arm] 156/62 Blood Pressure 156/69 O2 Sat by Pulse Oximetry 94 General Limitations: No Limitations General Appearance: Alert and In No Apparent Distress Head Head Exam: Normal Inspection and Atraumatic Eyes Eye exam: Normal Appearance and PERRL; negative Scleral Icterus and Conjunctival Injection ENT ENT Exam: Normal Exam, Normal Oropharynx, Normal External Ear Exam and TM's Normal Bilaterally Neck Neck Exam: Normal Inspection and Trachea Midline; negative Tenderness and Lymphadenopathy Chest Chest Inspection: Normal Inspection and Symmetric Chest Wall Rise; negative Tenderness Respiratory Respiratory Exam: Normal Lung Sounds Bilat; negative Accessory Muscle Use, Chest Wall Tenderness and Respiratory Distress Respiratory Exam: Bilateral: Rhonchi and Lower: Rhonchi Cardiovascular Cardiovascular Exam: Regular Rate and Normal Rhythm Abdominal Exam Abdominal Exam: Normal Bowel Sounds, Soft and Tenderness Abdominal Tenderness: Diffuse and Moderate Rectal Rectal Exam: Deferred Back Back Exam: Normal Inspection and Paraspinal Tenderness Extremeties Extremities Exam: Normal Inspection and Normal Capillary Refill; negative Tenderness, Edema and Calf Tenderness External Exam: Female: Deferred : Speculum Exam (Female): Deferred : Bimanual Exam (female): Deferred Neurologic Neurological Exam: Alert and Oriented X3; negative Motor Sensory Deficit Psychiatric Psychiatric Exam: Normal Affect and Normal Mood Skin Skin Exam: Dry MDM Additional Information Obtained From Additional information provided by: Family Differential Diagnosis Differential Diagnosis- Considerations may include:: Bowel Obstruction, Constipation, Diverticular disease, Gastritus/PUD, Gastroenteritis, Hernia, Inflammatory BD, Ischemic Bowel, Pancreatitis, Urinary tract infection and Urolithiasis COURSE Treatment Treatment: SEE ORDERS. Education/Counseling Education/Counseling: Patient Educated On: Diagnosis ROR Labs Reviewed Laboratory Results Reviewed?: Yes Result Diagrams: 03/09/20 06:07 03/09/20 06:07 Laboratory: WBC 6.7 X10^3/uL (3.6-10.0) 03/08/20 13:30 RBC 3.67 X10^6/uL (3.5-5.4) 03/08/20 13:30 Hgb 11.8 g/dL (12.0-16.0) L 03/08/20 13:30 Hct 34.7 % (36.0-47.0) L 03/08/20 13:30 MCV 94.5 fL (80.0-100.0) 03/08/20 13:30 MCH 32.1 pg (27.0-34.0) 03/08/20 13:30 MCHC 34.0 g/dL (33.0-35.0) 03/08/20 13:30 RDW 14.3 % (11.6-16.5) 03/08/20 13:30 Plt Count 98 X10^3/uL (150.0-450.0) L 03/08/20 13:30 MPV 7.9 fL (7.4-11.0) 03/08/20 13:30 Neut % (Auto) 80.0 % (42.0-75.0) H 03/08/20 13:30 Lymph % (Auto) 12.8 % (21.0-51.0) L 03/08/20 13:30 [place] % (Auto) 5.0 % (0.0-13.0) 03/08/20 13:30 Eos % (Auto) 1.4 % (0.9-2.9) 03/08/20 13:30 Baso % (Auto) 0.8 % (0.2-1.0) 03/08/20 13:30 Neut # (Auto) 5.3 x10^3/uL (2.2-4.8) H 03/08/20 13:30 Lymph # (Auto) 0.9 X10^3/uL (1.3-2.9) L 03/08/20 13:30 [place] # (Auto) 0.3 x10^3/uL (0.3-0.8) 03/08/20 13:30 Eos # (Auto) 0.1 x10^3/uL (0.0-0.2) 03/08/20 13:30 Baso # (Auto) 0.1 X10^3/uL (0.0-0.1) 03/08/20 13:30 Absolute Nucleated RBC 0.0 /100WBC 03/08/20 13:30 Sodium 136 mmol/L (136-145) 03/08/20 13:30 Corrected Sodium TNP 03/08/20 13:30 Potassium 4.4 mmol/L (3.5-5.1) 03/08/20 13:30 Chloride 102 mmol/L (98-107) 03/08/20 13:30 Carbon Dioxide 29.5 mmol/L (21-32) 03/08/20 13:30 BUN 29 mg/dL (7-18) H 03/08/20 13:30 Creatinine 2.05 mg/dL (0.55-1.02) H 03/08/20 13:30 Est GFR (MDRD) Af Amer 30 (>60) L 03/08/20 13:30 Est GFR (MDRD) Non-Af 25 (>60) L 03/08/20 13:30 Glucose 84 mg/dL (65-99) 03/08/20 13:30 Calcium 9.6 mg/dL (8.5-10.1) 03/08/20 13:30 Corrected Calcium TNP 03/08/20 13:30 Total Bilirubin 0.20 mg/dL (0.2-1.0) 03/08/20 13:30 AST 17 Units/L (15-37) 03/08/20 13:30 ALT 13 Units/L (12-78) 03/08/20 13:30 Alkaline Phosphatase 83 Units/L (46-116) 03/08/20 13:30 Total Protein 6.7 g/dL (6.4-8.2) 03/08/20 13:30 Albumin 3.4 g/dL (3.4-5.0) 03/08/20 13:30 Globulin 3.3 g/dL (2.5-4.5) 03/08/20 13:30 Albumin/Globulin Ratio 1.0 Ratio (1.1-2.1) L 03/08/20 13:30 Amylase 25 Units/L (25-115) 03/08/20 13:30 Lipase 107 Units/L (73-393) 03/08/20 13:30 Stool Description Fob tube 03/08/20 14:07 Stl Occult Blood (IFOB) Positive (NEGATIVE) A 03/08/20 14:07 XRAY XRAY Interpreted by: Radiologist (REPORT NOTED AND DISCUSSED WITH PATIENT.) Opioid Opioid Risk Tool Age ([place] if 16-45): No History of Preadolescent Sexual Abuse: No Total: 0 Total Score Risk Category: Low Risk Copyright: Pierre LOZANO predicting aberrant behaviors Diagnosis Discharge Problem: Acute diverticulitis of intestine, Weakness, Mild dehydration, GI bleed
[2020-03-08 13:44] LABS: BASOPHILS # (AUTO) 0.1 X10^3/uL (0.0-0.1); BASOPHILS % (AUTO) 0.8 % (0.2-1.0); EOSINOPHILS # (AUTO) 0.1 x10^3/uL (0.0-0.2); EOSINOPHILS % (AUTO) 1.4 % (0.9-2.9); HEMATOCRIT 34.7 % (36.0-47.0); HEMOGLOBIN 11.8 g/dL (12.0-16.0); LYMPHOCYTES # (AUTO) 0.9 X10^3/uL (1.3-2.9); LYMPHOCYTES % (AUTO) 12.8 % (21.0-51.0); MEAN CORPUSCULAR HEMOGLOBIN 32.1 pg (27.0-34.0); MEAN CORPUSCULAR VOLUME 94.5 fL (80.0-100.0); MEAN PLATELET VOLUME 7.9 fL (7.4-11.0); MONOCYTES # (AUTO) 0.3 x10^3/uL (0.3-0.8); NEUTROPHILS # (AUTO) 5.3 x10^3/uL (2.2-4.8); PLATELET COUNT 98 X10^3/uL (150.0-450.0); RED BLOOD COUNT 3.67 X10^6/uL (3.5-5.4); RED CELL DISTRIBUTION WIDTH 14.3 % (11.6-16.5); WHITE BLOOD COUNT 6.7 X10^3/uL (3.6-10.0)
[2020-03-08 13:52] LABS: ALANINE AMINOTRANSFERASE 13 Units/L (12-78); ALBUMIN 3.4 g/dL (3.4-5.0); ALKALINE PHOSPHATASE 83 Units/L (46-116); AMYLASE 25 Units/L (25-115); ASPARTATE AMINO TRANSFERASE 17 Units/L (15-37); BLOOD UREA NITROGEN 29 mg/dL (7-18); CALCIUM 9.6 mg/dL (8.5-10.1); CARBON DIOXIDE 29.5 mmol/L (21-32); CHLORIDE 102 mmol/L (98-107); CREATININE 2.05 mg/dL (0.55-1.02); LIPASE 107 Units/L (73-393); SODIUM 136 mmol/L (136-145); TOTAL PROTEIN 6.7 g/dL (6.4-8.2); eGFR NON BLACK RACES 25 (>60)
[2020-03-08] MEDS ORDERED: PROTONIX INJ 40 MG VIAL ONE (14:03)
[2020-03-08] MEDS ORDERED: NS 100 ML IV 100 ML IV ONE (14:04)
[2020-03-08] MEDS ORDERED: NS 1000 ML 1,000 ML ONE (14:04)
[2020-03-08] MEDS: PROTONIX INJ 40 MG VIAL 80 MG in NS 100 ML IV 80 ML IV SCH (14:19)
[2020-03-08] MEDS ORDERED: NS 1000 ML 1,000 ML IV SCH (15:00)
--- NOTE | 2020-03-08 16:11 | CT ---
HISTORYabdominal painSTUDYCT of the abdomen and pelvis without contrastCOMPARISONJune 2016TECHNIQUEAxial CT was acquired from the lung bases through the pelvis WITHOUT IV contrast; multiplaner reformats are generated from the original axial data.FINDINGSMild fibrous subpleural reticulation is demonstrated within the dependent lung bases which are otherwise clear. A dual lead cardiac pacemaker is in place. Dense calcifications are associated with the mitral valve and aortic valve respectively. Circumferential atherosclerotic intramural plaque is demonstrated within the abdominal aorta and iliac tributaries.The attenuation of the liver parenchyma is predominantly homogeneous. No radiopaque gallstones or acute inflammatory changes of the gallbladder are identified. The gallbladder is full at the time of the scan, without wall thickening or pericholecystic inflammatory change. The spleen is average size. There are no inflammatory changes of the pancreas, with evidence of mild fatty infiltration observed. The adrenal glands remain symmetric, mildly thickened overall with sub cm nodules suspected within each adrenal gland suggesting adrenal adenoma. Nonobstructing calculi are associated with the left kidney, many of which are likely of atherosclerotic origin. There is cortical scarring of the bilateral kidneys. No hydronephrosis is identified. Left upper pole parapelvic renal cyst measures approximately 2 cm.There is inflammatory stranding associated with the sigmoid colon and descending colon over the course of several cm. There is underlying colonic diverticulosis. Associated with the inflammatory stranding is long segment colonic wall thickening. There is a small amount of free fluid within the posterior pelvic cul de sac. No free air, bowel pneumatosis, or organized pericolonic abscess is identified. The bowel gas pattern is nonobstructive. A normal appendix is confirmed. No small bowel distention identified.A pessary is in place within the pelvis. The uterus is surgically absent and the bladder is contracted. Postsurgical changes of ventral abdominal wall hernia repair are evident. Review of bone windows demonstrates no aggressive bony lesions or acute osseous abnormalities. There is a chronic L5 superior endplate Schmorl's node defect with concave borders resulting in moderate central height loss of the L5 vertebral body.IMPRESSIONFindings consistent with acute diverticulitis of the descending and sigmoid colon segments with associated segmental colitis. No radiological complications of perforation or pericolonic abscess identified. After initial conservative treatment measures have been initiated, recommend follow-up colonoscopy within 6-8 weeks to monitor for resolution of inflammatory bowel wall thickening.Other chronic postsurgical and incidental stable findings as detailed above.Radiation dose reduction was achieved through individualized adjustment of kVP and/or mA, through adaptive statistical iterative reconstruction, and/or through automated tube current modulation.Electronically signed by: VIRGILIO LÓPEZ (March 08, 2020 16:10:18)
[2020-03-08] MEDS ORDERED: FLAGYL IV PREMIX 500 MG BAG 500 MG/100 ML BAG IV ONE ×2 (16:20→16:55)
[2020-03-08] MEDS ORDERED: MORPHINE SULFATE INJ 2 MG INJ IVP PRN (16:53)
[2020-03-08] MEDS ORDERED: ZOFRAN INJ 4 MG VIAL IVP PRN (16:53)
[2020-03-08] MEDS: NS 1000 ML 1,000 ML IV SCH ×2 (17:14→20:23)
[2020-03-08] MEDS ORDERED: ZOLOFT PO ONE (19:50)
[2020-03-08] MEDS: FERROUS GLUCONATE PO SCH (20:23)
[2020-03-08] MEDS: ZOLOFT PO SCH (20:24)
[2020-03-08] MEDS: SEROquel TAB 25 mg PO SCH (20:24)
[2020-03-08] MEDS: ROCEPHIN VIAL 1 GRAM 1 G in NS 100 ML IV + SPIKE MINIBAG* 100 ML IV SCH (20:24)
[2020-03-08] MEDS: XANAX PO SCH (20:24)
[2020-03-08] MEDS: FLAGYL IV PREMIX 500 MG BAG 500 MG/100 ML BAG IV SCH (20:25)
[2020-03-08] MEDS ORDERED: PATIENT'S HOME MEDICATION (Levocetirizine 5 MG) PO SCH (21:00)
[2020-03-08] MEDS ORDERED: PATIENT'S HOME MEDICATION (Ferrous Sulfate 325 MG) PO SCH (21:00)
[2020-03-08] MEDS: BENTYL CAP 10 MG PO SCH (21:00)
[2020-03-08] MEDS ORDERED: QUETIAPINE 75 MG PO SCH (21:00)
[2020-03-09] MEDS: PROTONIX INJ 40 MG VIAL 80 MG in NS 100 ML IV 80 ML IV SCH ×3 (02:22→21:35)
[2020-03-09] MEDS: FLAGYL IV PREMIX 500 MG BAG 500 MG/100 ML BAG IV SCH ×6 (02:22→21:32)
[2020-03-09] MEDS: NS 1000 ML 1,000 ML IV SCH ×3 (02:22→21:31)
[2020-03-09] MEDS: BENTYL CAP 10 MG PO SCH ×3 (05:21→23:01)
[2020-03-09 06:33] LABS: BASOPHILS % (AUTO) 0.2 % (0.2-1.0); EOSINOPHILS # (AUTO) 0.1 x10^3/uL (0.0-0.2); EOSINOPHILS % (AUTO) 2.2 % (0.9-2.9); HEMATOCRIT 31.3 % (36.0-47.0); HEMOGLOBIN 10.7 g/dL (12.0-16.0); LYMPHOCYTES # (AUTO) 0.5 X10^3/uL (1.3-2.9); LYMPHOCYTES % (AUTO) 12.1 % (21.0-51.0); MEAN CORPUSCULAR HEMOGLOBIN 32.3 pg (27.0-34.0); MONOCYTES # (AUTO) 0.1 x10^3/uL (0.3-0.8); MONOCYTES % (AUTO) 3.3 % (0.0-13.0); NEUTROPHILS # (AUTO) 3.6 x10^3/uL (2.2-4.8); NEUTROPHILS % (AUTO) 82.2 % (42.0-75.0); PLATELET COUNT 75 X10^3/uL (150.0-450.0); RED CELL DISTRIBUTION WIDTH 14.3 % (11.6-16.5); WHITE BLOOD COUNT 4.4 X10^3/uL (3.6-10.0)
[2020-03-09 06:48] LABS: ALANINE AMINOTRANSFERASE 11 Units/L (12-78); ALBUMIN 2.9 g/dL (3.4-5.0); ALKALINE PHOSPHATASE 76 Units/L (46-116); AMYLASE 16 Units/L (25-115); ASPARTATE AMINO TRANSFERASE 20 Units/L (15-37); BLOOD UREA NITROGEN 22 mg/dL (7-18); CALCIUM 8.5 mg/dL (8.5-10.1); CHLORIDE 105 mmol/L (98-107); COR CA(FOR HYPOALB) 9.4 mg/dL (8.5-10.1); CREATININE 1.56 mg/dL (0.55-1.02); LIPASE 65 Units/L (73-393); SODIUM 138 mmol/L (136-145); TOTAL PROTEIN 5.9 g/dL (6.4-8.2); eGFR NON BLACK RACES 34 (>60)
[2020-03-09] MEDS: ROCEPHIN VIAL 1 GRAM 1 G in NS 100 ML IV + SPIKE MINIBAG* 100 ML IV SCH (09:17)
[2020-03-09] MEDS: ARICEPT TAB 10 MG PO SCH (09:17)
[2020-03-09] MEDS: XANAX PO SCH ×2 (09:17→21:35)
[2020-03-09] MEDS: FERROUS GLUCONATE PO SCH ×2 (09:18→21:31)
[2020-03-09] MEDS: ZOCOR TAB 20 MG PO SCH (09:18)
[2020-03-09] MEDS: SYNTHROID 100 mcg TAB PO SCH (09:18)
[2020-03-09] MEDS: CARDIZEM CD 240 MG 24-HR PO SCH (09:18)
[2020-03-09] MEDS: CLARITIN PO SCH (09:18)
[2020-03-09] MEDS: [UNRECOGNIZED DRUG - OTHER] PO SCH (10:49)
[2020-03-09] MEDS: CHOLECALCIFEROL PO SCH (10:49)
[2020-03-09] MEDS: MESALAMINE PO SCH (10:50)
[2020-03-09] MEDS ORDERED: LOVENOX INJ 40 MG SYR SC SCH (11:00)
[2020-03-09 11:32] LABS: BILIRUBIN,URINE NEGATIVE (NEGATIVE); BLOOD/HEMOGLOBIN,URINE 1+ (NEGATIVE); GLUCOSE, URINE NEGATIVE (NEGATIVE); KETONES,URINE NEGATIVE (NEGATIVE); LEUKOCYTE ESTERASE ,URINE 1+ (NEGATIVE); NITRITES,URINE NEGATIVE (NEGATIVE); PROTEIN,URINE NEGATIVE (NEGATIVE); UROBILINOGEN,URINE NORMAL (NORMAL)
[2020-03-09 11:39] LABS: APPEARANCE,URINE CLOUDY (CLEAR); BACTERIA,URINE NEGATIVE /HPF (NEGATIVE); COLOR,URINE YELLOW (YELLOW); RBC,URINE 0-2 /HPF (0-3); SQUAMOUS EPITHELIAL CELL,UR RARE /HPF (NEGATIVE)
[2020-03-09 12:01] VITALS: BMI 26.0
[2020-03-09] MEDS: LOVENOX INJ 30 MG SYR SC SCH (14:06)
--- NOTE | 2020-03-09 14:14 | CT ---
HISTORYFALL THIS AMSTUDYCT BRAIN W/O IV CONCOMPARISONNoneTECHNIQUEMultiple axial images of the brain were obtained without IV contrast. Dose reduction techniques including Automated Exposure Control (AEC) and adjustment of mA and kV were utilized.FINDINGSVisualized portions of the paranasal sinuses and mastoid air cells are clear. No calvarial fracture is seen. No acute intracranial hemorrhage or mass effect is seen. Mild compensatory enlargement of the ventricular system due to the prominent volume loss in the brain. No evidence of acute CVA. Moderate chronic small vessel ischemic changes are seen in the basal ganglia and white matter.IMPRESSIONNo acute abnormalities are seen.Electronically signed by: Igor Sabillon (March 09, 2020 14:13:29)
--- NOTE | 2020-03-09 14:38 | RAD ---
HISTORYFall, pelvic painSTUDYPELVIS APCOMPARISONNoneFINDINGSThe pelvic bones and SI joints appear intact. The hip joints are bilaterally intact as are the proximal femurs. Mild degenerative joint space narrowing is present in the hip joints bilaterally.IMPRESSIONNo acute traumatic abnormalityMild degenerative joint space narrowing in the hip joints bilaterallyElectronically signed by: KIRK MERINO (March 09, 2020 14:37:32)
--- NOTE | 2020-03-09 14:41 | CT ---
HISTORYfall this am pain to right hip areaSTUDYPELVIS W/O CONCOMPARISONNoneTECHNIQUEMultiple axial images of the pelvis were obtained without the administration of IV contrast. Sagittal and coronal reformats were performed and reviewed. Dose reduction techniques including Automated Exposure Control (AEC) and adjustment of mA and kV were utilized.FINDINGSEvaluation of the bony pelvis demonstrates a nondisplaced sacral alar fracture on the right. There is also a obliquely oriented nondisplaced inferior pubic ramus fracture. There is also a nondisplaced fracture through the anterior acetabular wall on the right. No femoral fractures are seen. No other fractures can be identified. These are new from the previous CT abdomen pelvis yesterday. There is a films of compression deformity of the L5 vertebral body however the cortex does appear to be intact and this is probably chronic. The bones are osteopenic. The pelvic cavity demonstrates diverticulitis of the descending colon.IMPRESSIONNondisplaced right sacral alar, anterior acetabular wall and inferior pubic rami fractures as above.Findings of left-sided diverticulitisElectronically signed by: FELI ESCOBAR (March 09, 2020 14:40:22)
[2020-03-09 15:58] LABS: BILIRUBIN,URINE NEGATIVE (NEGATIVE); BLOOD/HEMOGLOBIN,URINE 1+ (NEGATIVE); GLUCOSE, URINE NEGATIVE (NEGATIVE); KETONES,URINE NEGATIVE (NEGATIVE); LEUKOCYTE ESTERASE ,URINE 3+ (NEGATIVE); NITRITES,URINE NEGATIVE (NEGATIVE); PROTEIN,URINE 2+ (NEGATIVE); UROBILINOGEN,URINE NORMAL (NORMAL)
[2020-03-09 16:30] LABS: COLOR,URINE YELLOW (YELLOW)
[2020-03-09 16:31] LABS: APPEARANCE,URINE HAZY (CLEAR); BACTERIA,URINE TRACE /HPF (NEGATIVE); RBC,URINE 0-2 /HPF (0-3); SQUAMOUS EPITHELIAL CELL,UR MODERATE /HPF (NEGATIVE)
--- NOTE | 2020-03-09 21:05 | DR.H&P ---
H&P - History & Physical for Day of: H&P Date: 03/08/20 - Chief Complaint Chief Complaint: ABDOMINAL PAIN, LOWER BACK PAIN, CONSTIPATION, WEAKNESS, CHILLS, NAUSEA, DECREASED APPETITE - History of Present Illness History of Present Illness: IS A 84 YEAR OLD PATIENT OF OURS WHO PRESENTED TO THE ER WITH COMPLAINTS OF ABDOMINAL PAIN, LOWER BACK PAIN, CONSTIPATION, WEAKNESS, CHILLS, NAUSEA, AND DECREASED APPETITE. SYMPTOMS STARTED ONE WEEK PRIOR AND HAVE PROGRESSIVELY GOTTEN WORSE. ABDOMINAL PAIN IS LOCATED IN THE EPIGASTRIC AREA AND IS RATED 7/10. SHE REPORTS THAT PAIN INCREASES WITH MOVEMENT AND FOOD. IT IMPROVES WHEN SHE IS LYING STILL. SHE WAS SEEN ON 03/05/20 AND WAS PLACED ON BACTRIM DS 1 TAB PO BID FOR A URINARY TRACT INFECTION. SHE REPORTS TAKING A STOOL SOFTENER AT HOME WITHOUT IMPROVEMENT IN SYMPTOMS. PMH INCLUDES: ARTHRITIS, DYSLIPIDEMIA, GERD, HTN, HYPOTHYROIDISM, KIDNEY STONES, SLEEP APNEA. SHE HAS HAD A HERNIA REPAIR IN THE PAST. ON ARRIVAL TO THE ER, VITALS WERE 97.6-82-17-95%-103/55. LABS WERE OBTAINED. ABNORMAL LAB VALUES INCLUDE THE FOLLOWING: HGB 11.8, HCT 34.7, PLT COUNT 98, BUN 29, CREATININE 2.05. URINALYSIS REVEALED: WBC 0-2, RBC 0-2, LEUKOCYTES 1+, BACTERIA NEGATIVE, OCCULT BLOOD 1+. STOOL IS POSITIVE FOR OCCULT BLOOD. A URINE CULTURE WAS SET UP. AN ABDOMEN/PELVIS CT WITHOUT CONTRAST WAS OBTAINED AND REVEALED: Findings consistent with acute diverticulitis of the descending and sigmoid colon s egments with associated segmental colitis. No radiological complications of perforation or pericolonic abscess identified. After initial conservative treatment measures have been initiated, recommend follow-up colonoscopy within 6-8 weeks to monitor for resolution of inflammatory bowel wall thickening. Other chronic postsurgical and incidental stable findings as detailed above. Radiation dose reduction was achieved through individualized adjustment of kVP and/or mA, through adaptive statistical iterative reconstruction, and/or through automated tube current modulation. AN EKG WAS OBTAINED AND REVEALED: VENTRICULAR PACED RHYTHM WITH HR 66. SHE WAS ADMITTED TO THE HOSPITAL FOR FURTHER EVALUATION AND TREATMENT OF ACUTE DIVERTICULITIS, COLITIS, DEHYDRATION, GI BLEED, AND ABDOMINAL PAIN. SHE WAS STARTED ON ROCEPHIN 1G IV DAILY, FLAGYL 500MG IV Q6H, A PROTONIX DRIP, NORMAL SALINE AT 125ML/HR, MORPHINE 2MG IV Q6H PRN PAIN, LOVENOX 30MG SC DAILY, BENTYL 10MG PO TID, AND HOME MEDICATIONS WERE RESUMED. ON MORNING ROUNDS, STAFF REPORTED THAT PATIENT HAD FALLEN EARLIER IN THE MORNING WHEN SHE WAS AMBULATING TO THE BATHROOM. THEY REPORT THAT SHE WAS BEING ASSISTED BY HER DAUGHER. PATIENT REPORTED HITTING HER HEAD, BUT DENIED HEADACHE. SHE DID REPORT BILATERAL HIP PAIN. EXAMINATION REVEALED MORE TENDERNESS TO THE RIGHT HIP. TODAY, WE WILL OBTAIN STOOL STUDIES AND ADVANCE HER TO A CLEAR LIQUID DIET. WE WILL ALSO OBTAIN BILATERAL HIP XRAYS AND A BRAIN CT. PHYSICAL THERAPY WILL EVALUATE PATIENT. OTHERWISE, WE WILL FOLLOW UP WITH AM LABS AND CONTINUE TO MONITOR. - Past Medical History Past Medical History: Hypertension, Dyslipidemia, Hypothyroidism, GERD, Arthritis, Kidney Stones, Sleep Apnea Additional Medical History: MACULAR DEGENERATION, DIVERTICULOSIS, UTIs - Past Surgical History Surgical History: CLOTH EXAMINER Surgery, Ortho Surgery, Other Additional Surgical History: PACEMAKER, HERNIA REPAIR - Family History Family Medical History: Hypertension - Social History Does patient currently use any type of tobacco product: No Have you used tobacco products in the last 12 months: No Type of Tobacco Use: Cigarettes How many years tobacco product used: 20 Does any household member use tobacco: No Alcohol Use: None Drug Use: None - Medications Home Medications: No Known Drug Allergies Allergy (Verified 03/08/20 12:06) CONTINUE taking the following medications alprazolam [Xanax] 0.125 mg PO DAILY 03/08/20 [History] alprazolam [Xanax] 0.5 mg PO HS 03/08/20 [History] calcium citrate malate-vit D3 1 tab PO DAILY 03/08/20 [History] dicyclomine 10 mg PO TID 03/08/20 [History] diltiazem HCl [Cartia XT] 240 mg PO DAILY 03/08/20 [History] donepezil 10 mg PO DAILY 03/08/20 [History] ferrous sulfate 325 mg PO BID 03/08/20 [History] levocetirizine 5 mg PO HS 03/08/20 [History] loratadine 10 mg PO DAILY 03/08/20 [History] quetiapine 75 mg PO HS 03/08/20 [History] simvastatin 20 mg PO DAILY 03/08/20 [History] sulfamethoxazole-trimethoprim 1 tab PO BID 03/08/20 [History] - Review of Systems Constitutional: See HPI, Chills, Weakness, Malaise, Other (DECREASED APPETITE ) Eyes: No Symptoms Reported ENT: No Symptoms Reported Respiratory: No Symptoms Reported Cardiovascular: No Symptoms Reported Gastrointestinal: See HPI, Nausea, Abdominal Pain, Constipation Genitourinary: No Symptoms Reported Musculoskeletal: No Symptoms Reported Skin: No Symptoms Reported Neurological: See HPI, Weakness - Physical Exam Vital Signs: Temperature 98.6 F Pulse Rate [Right] 60 Pulse Rate 65 Respiratory Rate 20 Blood Pressure [Right Arm] 106/52 Blood Pressure [Left Arm] 134/61 Blood Pressure [Right Arm] 156/62 Blood Pressure 135/66 O2 Sat by Pulse Oximetry 90 Oriented: Normal Eyes: Normal Ear: Normal Nose: Normal Throat: Normal Respiratory: Diminished Throughout Cardiovascular: Normal : Normal Auscultation: Bowel Sounds: Normal Tenderness: Diffuse, Epigastric, Moderate. negative: Rebound, Guarding, Rigidity Skin: Normal Musculoskeletal: Back:Lumbar Psychiatric: Normal Mood Description: Calm Affect: Normal Speech Pattern: Clear - Assessment/Plan (1) Acute diverticulitis Status: Acute Plan: ADMIT, ROCEPHIN 1G IV DAILY, FLAGYL 500MG IV Q6H, A PROTONIX DRIP, NORMAL SALINE AT 125ML/HR, MORPHINE 2MG IV Q6H PRN PAIN, LOVENOX 30MG SC DAILY, BENTYL 10MG PO TID, AND HOME MEDICATIONS WERE RESUMED (2) Colitis Status: Acute (3) GI (gastrointestinal bleed) Qualifiers: GI bleed type/associated pathology: unspecified gastrointestinal hemorrhage type Qualified Code(s): K92.2 - Gastrointestinal hemorrhage, unspecified Status: Acute (4) Abdominal pain Qualifiers: Abdominal location: epigastric Qualified Code(s): R10.13 - Epigastric pain Status: Acute (5) Generalized weakness Status: Acute Plan: OBTAIN BRAIN CT, CONTINUE TO MONITOR (6) Mild dehydration Status: Acute Plan: NORMAL SALINE AT 125ML/HR, CONTINUE TO MONITOR (7) Bilateral hip pain Status: Acute Plan: OBTAIN BILATERAL HIP XRAY, CONTINUE TO MONTIOR - Allergies Allergies/Adverse Reactions: Allergies Allergy/AdvReac Type Severity Reaction Status Date / Time No Known Drug Allergies Allergy Verified 03/08/20 12:06
[2020-03-09] MEDS ORDERED: ZOLOFT PO ONE (21:11)
[2020-03-09] MEDS ORDERED: RESTORIL CAP 15 MG PO ONE (21:19)
[2020-03-09] MEDS: ZOLOFT PO SCH (21:35)
[2020-03-09] MEDS: SEROquel TAB 25 mg PO SCH (21:35)
[2020-03-09] MEDS: RESTORIL CAP 15 MG PO PRN (21:36)
[2020-03-10] MEDS: NS 1000 ML 1,000 ML IV SCH ×4 (01:37→21:16)
[2020-03-10] MEDS: FLAGYL IV PREMIX 500 MG BAG 500 MG/100 ML BAG IV SCH ×4 (03:05→21:16)
[2020-03-10] MEDS: BENTYL CAP 10 MG PO SCH ×3 (06:02→21:16)
[2020-03-10 06:13] LABS: BASOPHILS % (AUTO) 0.7 % (0.2-1.0); EOSINOPHILS # (AUTO) 0.2 x10^3/uL (0.0-0.2); EOSINOPHILS % (AUTO) 4.5 % (0.9-2.9); HEMATOCRIT 25.8 % (36.0-47.0); HEMOGLOBIN 8.9 g/dL (12.0-16.0); LYMPHOCYTES # (AUTO) 0.6 X10^3/uL (1.3-2.9); LYMPHOCYTES % (AUTO) 17.5 % (21.0-51.0); MEAN CORPUSCULAR HEMOGLOBIN 32.9 pg (27.0-34.0); MEAN CORPUSCULAR HGB CONC 34.3 g/dL (33.0-35.0); MEAN CORPUSCULAR VOLUME 95.9 fL (80.0-100.0); MEAN PLATELET VOLUME 8.4 fL (7.4-11.0); MONOCYTES # (AUTO) 0.2 x10^3/uL (0.3-0.8); MONOCYTES % (AUTO) 4.6 % (0.0-13.0); NEUTROPHILS # (AUTO) 2.7 x10^3/uL (2.2-4.8); NEUTROPHILS % (AUTO) 72.7 % (42.0-75.0); PLATELET COUNT 63 X10^3/uL (150.0-450.0); RED BLOOD COUNT 2.69 X10^6/uL (3.5-5.4); RED CELL DISTRIBUTION WIDTH 14.4 % (11.6-16.5); WHITE BLOOD COUNT 3.7 X10^3/uL (3.6-10.0)
[2020-03-10 06:19] LABS: ALANINE AMINOTRANSFERASE 8 Units/L (12-78); ALBUMIN 2.5 g/dL (3.4-5.0); ALKALINE PHOSPHATASE 62 Units/L (46-116); ASPARTATE AMINO TRANSFERASE 14 Units/L (15-37); BLOOD UREA NITROGEN 15 mg/dL (7-18); CALCIUM 7.8 mg/dL (8.5-10.1); CARBON DIOXIDE 23.5 mmol/L (21-32); CHLORIDE 109 mmol/L (98-107); CREATININE 1.32 mg/dL (0.55-1.02); SODIUM 139 mmol/L (136-145); TOTAL PROTEIN 5.2 g/dL (6.4-8.2); eGFR NON BLACK RACES 41 (>60)
[2020-03-10 06:40] LABS: ERYTHROCYTE SEDIMENTATION RATE 14 MM/HOUR (0-20)
[2020-03-10] MEDS: ROCEPHIN VIAL 1 GRAM 1 G in NS 100 ML IV + SPIKE MINIBAG* 100 ML IV SCH (08:59)
[2020-03-10] MEDS: LOVENOX INJ 30 MG SYR SC SCH (09:01)
[2020-03-10] MEDS: CLARITIN PO SCH (09:02)
[2020-03-10] MEDS: ARICEPT TAB 10 MG PO SCH (09:02)
[2020-03-10] MEDS: XANAX PO SCH ×2 (09:03→21:16)
[2020-03-10] MEDS: SYNTHROID 100 mcg TAB PO SCH (09:04)
[2020-03-10] MEDS: FERROUS GLUCONATE PO SCH ×2 (09:04→21:16)
[2020-03-10] MEDS: ZOCOR TAB 20 MG PO SCH (09:04)
[2020-03-10] MEDS: CARDIZEM CD 240 MG 24-HR PO SCH (09:04)
[2020-03-10] MEDS: CHOLECALCIFEROL PO SCH (09:06)
[2020-03-10] MEDS: [UNRECOGNIZED DRUG - OTHER] PO SCH (09:06)
[2020-03-10] MEDS: MESALAMINE PO SCH (09:14)
[2020-03-10 11:28] LABS: CRYPTOSPORIDIUM PARVUM ANTIGEN NEGATIVE (NEGATIVE); GIARDIA LAMBLIA ANTIGEN NEGATIVE (NEGATIVE)
[2020-03-10] MEDS: PROTONIX INJ 40 MG VIAL 80 MG in NS 100 ML IV 80 ML IV SCH ×2 (15:08→18:18)
[2020-03-10] MEDS: CIPRO IV 400 MG PREMIX* 400 MG/200 ML IV.SOLN. IV SCH ×2 (16:02→20:34)
[2020-03-10] MEDS ORDERED: ZOLOFT PO ONE (20:41)
[2020-03-10] MEDS: ZOLOFT PO SCH (21:15)
[2020-03-10] MEDS: SEROquel TAB 25 mg PO SCH (21:16)
[2020-03-10] MEDS: RESTORIL CAP 15 MG PO PRN (21:17)
[2020-03-10] MEDS: MAALOX or MYLANTA PO PRN (23:00)
[2020-03-11] MEDS: FLAGYL IV PREMIX 500 MG BAG 500 MG/100 ML BAG IV SCH ×5 (03:00→22:00)
[2020-03-11] MEDS: PROTONIX INJ 40 MG VIAL 80 MG in NS 100 ML IV 80 ML IV SCH ×3 (05:04→23:00)
[2020-03-11 05:10] LABS: BASOPHILS % (AUTO) 0.5 % (0.2-1.0); EOSINOPHILS # (AUTO) 0.2 x10^3/uL (0.0-0.2); EOSINOPHILS % (AUTO) 4.6 % (0.9-2.9); HEMATOCRIT 29.4 % (36.0-47.0); HEMOGLOBIN 9.9 g/dL (12.0-16.0); LYMPHOCYTES # (AUTO) 0.6 X10^3/uL (1.3-2.9); LYMPHOCYTES % (AUTO) 12.2 % (21.0-51.0); MEAN CORPUSCULAR HEMOGLOBIN 32.3 pg (27.0-34.0); MEAN CORPUSCULAR HGB CONC 33.5 g/dL (33.0-35.0); MEAN CORPUSCULAR VOLUME 96.3 fL (80.0-100.0); MEAN PLATELET VOLUME 8.7 fL (7.4-11.0); MONOCYTES # (AUTO) 0.2 x10^3/uL (0.3-0.8); MONOCYTES % (AUTO) 4.3 % (0.0-13.0); NEUTROPHILS # (AUTO) 3.7 x10^3/uL (2.2-4.8); NEUTROPHILS % (AUTO) 78.4 % (42.0-75.0); PLATELET COUNT 66 X10^3/uL (150.0-450.0); RED BLOOD COUNT 3.05 X10^6/uL (3.5-5.4); RED CELL DISTRIBUTION WIDTH 14.5 % (11.6-16.5); WHITE BLOOD COUNT 4.7 X10^3/uL (3.6-10.0)
[2020-03-11 05:27] LABS: ALANINE AMINOTRANSFERASE 11 Units/L (12-78); ALBUMIN 2.6 g/dL (3.4-5.0); ALKALINE PHOSPHATASE 67 Units/L (46-116); ASPARTATE AMINO TRANSFERASE 15 Units/L (15-37); BLOOD UREA NITROGEN 7 mg/dL (7-18); CALCIUM 7.9 mg/dL (8.5-10.1); CARBON DIOXIDE 24.9 mmol/L (21-32); CHLORIDE 108 mmol/L (98-107); CREATININE 1.12 mg/dL (0.55-1.02); SODIUM 140 mmol/L (136-145); TOTAL PROTEIN 5.9 g/dL (6.4-8.2); eGFR NON BLACK RACES 49 (>60)
[2020-03-11] MEDS: BENTYL CAP 10 MG PO SCH ×3 (06:00→22:00)
[2020-03-11] MEDS: NS 1000 ML 1,000 ML IV SCH ×2 (06:37→18:15)
[2020-03-11] MEDS: ZOCOR TAB 20 MG PO SCH (08:37)
[2020-03-11] MEDS: XANAX PO SCH ×2 (08:38→22:00)
[2020-03-11] MEDS: CLARITIN PO SCH (08:39)
[2020-03-11] MEDS: SYNTHROID 100 mcg TAB PO SCH (08:39)
[2020-03-11] MEDS: CARDIZEM CD 240 MG 24-HR PO SCH (08:39)
[2020-03-11] MEDS: FERROUS GLUCONATE PO SCH ×2 (08:39→22:00)
[2020-03-11] MEDS: ARICEPT TAB 10 MG PO SCH (08:39)
[2020-03-11] MEDS: CHOLECALCIFEROL PO SCH (08:40)
[2020-03-11] MEDS: [UNRECOGNIZED DRUG - OTHER] PO SCH (08:40)
[2020-03-11] MEDS: CIPRO IV 400 MG PREMIX* 400 MG/200 ML IV.SOLN. IV SCH ×2 (08:41→21:00)
[2020-03-11] MEDS: LOVENOX INJ 30 MG SYR SC SCH (08:41)
[2020-03-11] MEDS: MESALAMINE PO SCH (08:43)
[2020-03-11] MEDS: MAALOX or MYLANTA PO PRN ×2 (16:11→22:00)
[2020-03-11] MEDS ORDERED: MICRO K EXTEN CAP 10 MEQ PO PRN (19:54)
[2020-03-11] MEDS ORDERED: POTASSIUM CHL 40 MEQ/NS 0.45% 500 ML IV PRN (19:54)
[2020-03-11] MEDS ORDERED: KLOR-CON PO PRN (19:54)
[2020-03-11] MEDS ORDERED: POTASSIUM CHL 60 MEQ/NS 0.45% 500 ML IV PRN (19:54)
[2020-03-11] MEDS ORDERED: POTASSIUM CHLORIDE LIQ 20 MEQ UDC PO PRN (19:54)
[2020-03-11] MEDS ORDERED: K-RIDER 10 MEQ/NS 100 ML 10 MEQ/100 ML BAG IV PRN (19:54)
[2020-03-11] MEDS ORDERED: ZOLOFT PO ONE (21:50)
[2020-03-11] MEDS: ZOLOFT PO SCH (21:55)
[2020-03-11] MEDS: RESTORIL CAP 15 MG PO PRN (22:00)
[2020-03-11] MEDS: K-DUR TAB 20 MEQ PO PRN (22:00)
[2020-03-11] MEDS: SEROquel TAB 25 mg PO SCH (22:00)
--- NOTE | 2020-03-11 22:41 | PCM.PROG ---
Progress Note - Progress Note for Day of Date of Exam: 03/10/20 - Subjective Subjective: IS BEING TREATED FOR ACUTE DIVERTICULITIS, COLITIS, GI BLEED, AND ABDOMINAL PAIN. A PELVIS CT WAS OBTAINED YESTERDAY DUE TO FALL AND REVEALED Nondisplaced right sacral alar, anterior acetabular wall and inferior pubic rami fractures. TODAY, SHE IS ALERT AND ORIENTED, LYING IN BED ON MORNING ROUNDS. SHE CONTINUES WITH ABDOMINAL PAIN AND RIGHT HIP PAIN TODAY. ON EXAMINATION, HEART IS REGULAR IN RATE AND RHYTHM. BILATERAL LUNGS ARE NOTED WITH DIMINISHED LUNG SOUNDS THROUGHOUT. ABDOMEN IS ROUND, SOFT, AND NOTED WITH DIFFUSE TENDERNESS THROUGHOUT. RIGHT HIP IS NOTED WITH TENDERNESS AND BRUISING. A KING CATHETER IS NOTED TO BEDSIDE DRAINAGE. HER VITALS THIS MORNING ARE: 98.9-67-18-92%[place]-134/63. LABS WERE OBTAINED. ABNORMAL LAB VALUES INCLUDE THE FOLLOWING: WBC 2.69, HGB 8.9, HCT 25.8, PLT COUNT 63, CHLORIDE 109, CREATININE 1.32, CALCIUM 7.8, AST 14, ALT 8, CRP 45.90, TOTAL PROTEIN 5.2, ALBUMIN 2.5. STOOL STUDIES ARE POSITVE FOR OCCULT BLOOD AND WHITE CELLS. SHE IS POSTIVE FOR CAMPYLOBACTER. A URINE CULTURE IS PENDING. SHE IS CURRENTLY RECEIVING ROCEPHIN 1G IV DAILY, FLAGYL 500MG IV Q6H, A PROTONIX DRIP, NORMAL SALINE AT 125ML/HR, MORPHINE 2MG IV Q6H PRN PAIN, LOVENOX 30MG SC DAILY, BENTYL 10MG PO TID, AND HOME MEDICATIONS WERE RESUMED. TODAY, WE WILL DISCONTINUE THE ROCEPHIN AND START CIPRO 400MG IV Q12H. PHYSICAL THERAPY WILL EVALUATE PATIENT. OTHERWISE, WE WILL FOLLOW UP WITH AM LABS AND CONTINUE TO MONITOR. - Past Medical Family Social History Past Med/Fam/Surg Hx: No changes since H&P Allergies: Allergies No Known Drug Allergies Allergy (Verified 03/08/20 12:06) - Review of Systems ROS: No change since H&P - Vital Signs and I&O's Vital Signs: Temperature 98.3 F Pulse Rate [Right] 69 Pulse Rate 65 Respiratory Rate 18 Blood Pressure [Right Arm] 106/52 Blood Pressure [Left Arm] 143/65 Blood Pressure [Right Arm] 156/62 Blood Pressure 135/66 O2 Sat by Pulse Oximetry 97 Intake and Output: Intake & Output 05/18/20 05/19/20 05/20/20 05/21/20 11:59 11:59 11:59 11:59 Intake Total 1000 / 1000 1979 / 1979 4488 / 4488 2318 / 2318 Output Total 1300 / 1300 4700 / 4700 900 / 900 Balance 1000 / 1000 680 / 680 -212 / -212 1418 / 1418 - Physical Exam Oriented: Normal Eyes: Normal Ear: Normal Nose: Normal Throat: Normal Respiratory: Generalized, Diminished Cardiovascular: Normal : Normal Auscultation: Bowel Sounds: Normal Palpation: Normal Tenderness: Diffuse, Epigastric, Moderate. negative: Rebound, Guarding, Rigidity Skin: Normal Musculoskeletal: Back:Lumbar Psychiatric: Normal Mood Description: Calm Affect: Normal Speech Pattern: Clear, Appropriate - Laboratory and Diagnostics Result Diagrams: 03/11/20 04:15 03/11/20 04:15 Labs: 03/10/20 10:00 Stool Stool Culture - Preliminary 03/10/20 10:00 Stool - Final 03/09/20 15:40 Urine,Catheterized Urine Culture - Final Laboratory WBC 4.7 X10^3/uL (3.6-10.0) 03/11/20 04:15 RBC 3.05 X10^6/uL (3.5-5.4) L 03/11/20 04:15 Hgb 9.9 g/dL (12.0-16.0) L 03/11/20 04:15 Hct 29.4 % (36.0-47.0) L 03/11/20 04:15 MCV 96.3 fL (80.0-100.0) 03/11/20 04:15 MCH 32.3 pg (27.0-34.0) 03/11/20 04:15 MCHC 33.5 g/dL (33.0-35.0) 03/11/20 04:15 RDW 14.5 % (11.6-16.5) 03/11/20 04:15 Plt Count 66 X10^3/uL (150.0-450.0) L 03/11/20 04:15 MPV 8.7 fL (7.4-11.0) 03/11/20 04:15 Neut % (Auto) 78.4 % (42.0-75.0) H 03/11/20 04:15 Lymph % (Auto) 12.2 % (21.0-51.0) L 03/11/20 04:15 [place] % (Auto) 4.3 % (0.0-13.0) 03/11/20 04:15 Eos % (Auto) 4.6 % (0.9-2.9) H 03/11/20 04:15 Baso % (Auto) 0.5 % (0.2-1.0) 03/11/20 04:15 Neut # (Auto) 3.7 x10^3/uL (2.2-4.8) 03/11/20 04:15 Lymph # (Auto) 0.6 X10^3/uL (1.3-2.9) L 03/11/20 04:15 [place] # (Auto) 0.2 x10^3/uL (0.3-0.8) L 03/11/20 04:15 Eos # (Auto) 0.2 x10^3/uL (0.0-0.2) 03/11/20 04:15 Baso # (Auto) 0.0 X10^3/uL (0.0-0.1) 03/11/20 04:15 Absolute Nucleated RBC 0.0 /100WBC 03/11/20 04:15 ESR 14 MM/HOUR (0-20) 03/10/20 05:44 Sodium 140 mmol/L (136-145) 03/11/20 04:15 Corrected Sodium TNP 03/11/20 04:15 Potassium 3.6 mmol/L (3.5-5.1) 03/11/20 04:15 Chloride 108 mmol/L (98-107) H 03/11/20 04:15 Carbon Dioxide 24.9 mmol/L (21-32) 03/11/20 04:15 BUN 7 mg/dL (7-18) 03/11/20 04:15 Creatinine 1.12 mg/dL (0.55-1.02) H 03/11/20 04:15 Est GFR (MDRD) Af Amer 60 (>60) 03/11/20 04:15 Est GFR (MDRD) Non-Af 49 (>60) L 03/11/20 04:15 Glucose 91 mg/dL (65-99) 03/11/20 04:15 Calcium 7.9 mg/dL (8.5-10.1) L 03/11/20 04:15 Corrected Calcium 9.0 mg/dL (8.5-10.1) 03/11/20 04:15 Magnesium 1.2 mg/dL (1.7-2.9) L 03/11/20 05:01 Total Bilirubin 0.30 mg/dL (0.2-1.0) 03/11/20 04:15 AST 15 Units/L (15-37) 03/11/20 04:15 ALT 11 Units/L (12-78) L 03/11/20 04:15 Alkaline Phosphatase 67 Units/L (46-116) 03/11/20 04:15 C-Reactive Protein 45.90 mg/L (0-3.0) H 03/10/20 05:44 Total Protein 5.9 g/dL (6.4-8.2) L 03/11/20 04:15 Albumin 2.6 g/dL (3.4-5.0) L 03/11/20 04:15 Globulin 3.3 g/dL (2.5-4.5) 03/11/20 04:15 Albumin/Globulin Ratio 0.8 Ratio (1.1-2.1) L 03/11/20 04:15 Amylase 16 Units/L (25-115) L 03/09/20 06:07 Lipase 65 Units/L (73-393) L 03/09/20 06:07 Specimen Type Catherized urine 03/09/20 15:40 Urine Color Yellow (YELLOW) 03/09/20 15:40 Urine Appearance Hazy (CLEAR) 03/09/20 15:40 Urine pH 6.0 (5.0 - 8.0) 03/09/20 15:40 Ur Specific [place] 1.020 (1.000-1.030) 03/09/20 15:40 Urine Protein 2+ (NEGATIVE) 03/09/20 15:40 Urine Glucose (UA) Negative (NEGATIVE) 03/09/20 15:40 Urine Ketones Negative (NEGATIVE) 03/09/20 15:40 Urine Occult Blood 1+ (NEGATIVE) 03/09/20 15:40 Urine Nitrite Negative (NEGATIVE) 03/09/20 15:40 Urine Bilirubin Negative (NEGATIVE) 03/09/20 15:40 Urine Urobilinogen Normal (NORMAL) 03/09/20 15:40 Ur Leukocyte Esterase 3+ (NEGATIVE) 03/09/20 15:40 Urine RBC 0-2 /HPF (0-3) 03/09/20 15:40 Urine WBC 10-20 /HPF (0-5) A 03/09/20 15:40 Ur Squamous Epith Cells Moderate /HPF (NEGATIVE) 03/09/20 15:40 Urine Bacteria Trace /HPF (NEGATIVE) 03/09/20 15:40 Ur Culture Indicated? Yes/culture set up 03/09/20 15:40 Stool Description 100g unformed brown 03/10/20 10:00 Stool Description 100g unformed brown 03/10/20 10:00 Stl Occult Blood (IFOB) Positive (NEGATIVE) A 03/10/20 10:00 Stool for White Cells Positive (NEGATIVE) A 03/10/20 10:00 Stl C. diff Tox B Gene Negative (NEGATIVE) 03/10/20 10:00 Stl C. diff [id number] Negative (NEGATIVE) 03/10/20 10:00 Cryptosporid parvum Ag Negative (NEGATIVE) 03/10/20 10:00 Giardia lamblia Ag Negative (NEGATIVE) 03/10/20 10:00 - Plan (1) Acute diverticulitis Status: Acute Plan: ADMIT, ROCEPHIN 1G IV DAILY, FLAGYL 500MG IV Q6H, A PROTONIX DRIP, NORMAL SALINE AT 125ML/HR, MORPHINE 2MG IV Q6H PRN PAIN, LOVENOX 30MG SC DAILY, BENTYL 10MG PO TID, AND HOME MEDICATIONS WERE RESUMED (2) Campylobacter intestinal infection Status: Acute Plan: CIPRO 400MG IV Q12H, CONTINUE TO MONITOR (3) Colitis Status: Acute (4) GI (gastrointestinal bleed) Status: Inactive Qualifiers: GI bleed type/associated pathology: unspecified gastrointestinal hemorrhage type Qualified Code(s): K92.2 - Gastrointestinal hemorrhage, unspecified (5) Abdominal pain Status: Acute Qualifiers: Abdominal location: epigastric Qualified Code(s): R10.13 - Epigastric pain (6) Generalized weakness Status: Acute Plan: OBTAIN BRAIN CT, CONTINUE TO MONITOR (7) Mild dehydration Status: Acute Plan: NORMAL SALINE AT 125ML/HR, CONTINUE TO MONITOR (8) Inferior pubic ramus fracture Status: Acute Qualifiers: Encounter type: initial encounter Fracture type: closed Laterality: right Qualified Code(s): S32.591A - Other specified fracture of right pubis, initial encounter for closed fracture (9) Fracture of anterior wall of acetabulum Status: Acute Qualifiers: Encounter type: initial encounter Fracture type: closed Fracture alignment: nondisplaced Laterality: right Qualified Code(s): S32.414A - Nondisplaced fracture of anterior wall of right acetabulum, initial encounter for closed fracture
--- NOTE | 2020-03-11 22:50 | PCM.PROG ---
Progress Note - Progress Note for Day of Date of Exam: 03/11/20 - Subjective Subjective: IS BEING TREATED FOR ACUTE DIVERTICULITIS, CAMPYLOBACTER, GI BLEED, ABDOMINAL PAIN, AND A RIGHT SIDE PUBIC RAMI AND ACETABULAR WALL FRACTUE. TODAY, SHE IS ALERT AND ORIENTED, LYING IN BED ON MORNING ROUNDS. SHE CONTINUES WITH ABDOMINAL PAIN AND RIGHT HIP PAIN TODAY. ON EXAMINATION, HEART IS REGULAR IN RATE AND RHYTHM. BILATERAL LUNGS ARE NOTED WITH DIMINISHED LUNG SOUNDS THROUGHOUT. ABDOMEN IS ROUND, SOFT, AND NOTED WITH DIFFUSE TENDERNESS THROUGHOUT. RIGHT HIP IS NOTED WITH TENDERNESS AND BRUISING. A KING CATHETER IS NOTED TO BEDSIDE DRAINAGE. HER VITALS THIS MORNING ARE: 98.8-67-18-96%-133/62. LABS WERE OBTAINED. ABNORMAL LAB VALUES INCLUDE THE FOLLOWING: WBC 3.05, RBC 9.9 , HCT 29.4, PLT COUNT 66, CHLORIDE 108, CREATININE 1.12, CALCIUM 7.9, MAGNESIUM 1.2, ALT 11, TOTAL PROTEIN 5.9, ALBUMIN 2.6. STOOL STUDIES ARE POSITVE FOR OCCULT BLOOD AND WHITE CELLS. SHE IS POSTIVE FOR CAMPYLOBACTER. A URINE CULTURE IS PENDING. SHE IS CURRENTLY RECEIVING CIPRO 400MG IV Q12H, FLAGYL 500MG IV Q6H, A PROTONIX DRIP, NORMAL SALINE AT 125ML/HR, MORPHINE 2MG IV Q6H PRN PAIN, LOVENOX 30MG SC DAILY, BENTYL 10MG PO TID, AND HOME MEDICATIONS WERE RESUMED. PHYSICAL THERAPY WILL SEE PATIENT TODAY. OTHERWISE, WE WILL FOLLOW UP WITH AM LABS AND CONTINUE TO MONITOR. - Past Medical Family Social History Past Med/Fam/Surg Hx: No changes since H&P Allergies: Allergies No Known Drug Allergies Allergy (Verified 03/08/20 12:06) - Review of Systems ROS: No change since H&P - Vital Signs and I&O's Vital Signs: Temperature 98.3 F Pulse Rate [Right] 69 Pulse Rate 65 Respiratory Rate 18 Blood Pressure [Right Arm] 106/52 Blood Pressure [Left Arm] 143/65 Blood Pressure [Right Arm] 156/62 Blood Pressure 135/66 O2 Sat by Pulse Oximetry 97 Intake and Output: Intake & Output 03/09/20 03/10/20 03/11/20 03/12/20 11:59 11:59 11:59 11:59 Intake Total 1000 / 1000 1979 4488 / 4488 2318 / 2318 Output Total 1300 / 1300 4700 / 4700 900 / 900 Balance 1000 / 999 680 / 680 -212 / -212 1418 / 1418 - Physical Exam Oriented: Normal Eyes: Normal Ear: Normal Nose: Normal Throat: Normal Respiratory: Generalized, Diminished Cardiovascular: Normal : Normal Auscultation: Bowel Sounds: Normal Tenderness: Diffuse, Epigastric, Moderate. negative: Rebound, Guarding, Rigidity Skin: Normal Musculoskeletal: Back:Lumbar Psychiatric: Normal Mood Description: Calm Affect: Normal Speech Pattern: Clear, Appropriate - Laboratory and Diagnostics Result Diagrams: 03/11/20 04:15 03/11/20 04:15 Labs: 03/10/20 10:00 Stool Stool Culture - Preliminary 03/10/20 10:00 Stool - Final 03/09/20 15:40 Urine,Catheterized Urine Culture - Final Laboratory WBC 4.7 X10^3/uL (3.6-10.0) 03/11/20 04:15 RBC 3.05 X10^6/uL (3.5-5.4) L 03/11/20 04:15 Hgb 9.9 g/dL (12.0-16.0) L 03/11/20 04:15 Hct 29.4 % (36.0-47.0) L 03/11/20 04:15 MCV 96.3 fL (80.0-100.0) 03/11/20 04:15 MCH 32.3 pg (27.0-34.0) 03/11/20 04:15 MCHC 33.5 g/dL (33.0-35.0) 03/11/20 04:15 RDW 14.5 % (11.6-16.5) 03/11/20 04:15 Plt Count 66 X10^3/uL (150.0-450.0) L 03/11/20 04:15 MPV 8.7 fL (7.4-11.0) 03/11/20 04:15 Neut % (Auto) 78.4 % (42.0-75.0) H 03/11/20 04:15 Lymph % (Auto) 12.2 % (21.0-51.0) L 03/11/20 04:15 [place] % (Auto) 4.3 % (0.0-13.0) 03/11/20 04:15 Eos % (Auto) 4.6 % (0.9-2.9) H 03/11/20 04:15 Baso % (Auto) 0.5 % (0.2-1.0) 03/11/20 04:15 Neut # (Auto) 3.7 x10^3/uL (2.2-4.8) 03/11/20 04:15 Lymph # (Auto) 0.6 X10^3/uL (1.3-2.9) L 03/11/20 04:15 [place] # (Auto) 0.2 x10^3/uL (0.3-0.8) L 03/11/20 04:15 Eos # (Auto) 0.2 x10^3/uL (0.0-0.2) 03/11/20 04:15 Baso # (Auto) 0.0 X10^3/uL (0.0-0.1) 03/11/20 04:15 Absolute Nucleated RBC 0.0 /100WBC 03/11/20 04:15 ESR 14 MM/HOUR (0-20) 03/10/20 05:44 Sodium 140 mmol/L (136-145) 03/11/20 04:15 Corrected Sodium TNP 03/11/20 04:15 Potassium 3.6 mmol/L (3.5-5.1) 03/11/20 04:15 Chloride 108 mmol/L (98-107) H 03/11/20 04:15 Carbon Dioxide 24.9 mmol/L (21-32) 03/11/20 04:15 BUN 7 mg/dL (7-18) 03/11/20 04:15 Creatinine 1.12 mg/dL (0.55-1.02) H 03/11/20 04:15 Est GFR (MDRD) Af Amer 60 (>60) 03/11/20 04:15 Est GFR (MDRD) Non-Af 49 (>60) L 03/11/20 04:15 Glucose 91 mg/dL (65-99) 03/11/20 04:15 Calcium 7.9 mg/dL (8.5-10.1) L 03/11/20 04:15 Corrected Calcium 9.0 mg/dL (8.5-10.1) 03/11/20 04:15 Magnesium 1.2 mg/dL (1.7-2.9) L 03/11/20 05:01 Total Bilirubin 0.30 mg/dL (0.2-1.0) 03/11/20 04:15 AST 15 Units/L (15-37) 03/11/20 04:15 ALT 11 Units/L (12-78) L 03/11/20 04:15 Alkaline Phosphatase 67 Units/L (46-116) 03/11/20 04:15 C-Reactive Protein 45.90 mg/L (0-3.0) H 03/10/20 05:44 Total Protein 5.9 g/dL (6.4-8.2) L 03/11/20 04:15 Albumin 2.6 g/dL (3.4-5.0) L 03/11/20 04:15 Globulin 3.3 g/dL (2.5-4.5) 03/11/20 04:15 Albumin/Globulin Ratio 0.8 Ratio (1.1-2.1) L 03/11/20 04:15 Amylase 16 Units/L (25-115) L 03/09/20 06:07 Lipase 65 Units/L (73-393) L 03/09/20 06:07 Specimen Type Catherized urine 03/09/20 15:40 Urine Color Yellow (YELLOW) 03/09/20 15:40 Urine Appearance Hazy (CLEAR) 03/09/20 15:40 Urine pH 6.0 (5.0 - 8.0) 03/09/20 15:40 Ur Specific [place] 1.020 (1.000-1.030) 03/09/20 15:40 Urine Protein 2+ (NEGATIVE) 03/09/20 15:40 Urine Glucose (UA) Negative (NEGATIVE) 03/09/20 15:40 Urine Ketones Negative (NEGATIVE) 03/09/20 15:40 Urine Occult Blood 1+ (NEGATIVE) 03/09/20 15:40 Urine Nitrite Negative (NEGATIVE) 03/09/20 15:40 Urine Bilirubin Negative (NEGATIVE) 03/09/20 15:40 Urine Urobilinogen Normal (NORMAL) 03/09/20 15:40 Ur Leukocyte Esterase 3+ (NEGATIVE) 03/09/20 15:40 Urine RBC 0-2 /HPF (0-3) 03/09/20 15:40 Urine WBC 10-20 /HPF (0-5) A 03/09/20 15:40 Ur Squamous Epith Cells Moderate /HPF (NEGATIVE) 03/09/20 15:40 Urine Bacteria Trace /HPF (NEGATIVE) 03/09/20 15:40 Ur Culture Indicated? Yes/culture set up 03/09/20 15:40 Stool Description 100g unformed brown 03/10/20 10:00 Stool Description 100g unformed brown 03/10/20 10:00 Stl Occult Blood (IFOB) Positive (NEGATIVE) A 03/10/20 10:00 Stool for White Cells Positive (NEGATIVE) A 03/10/20 10:00 Stl C. diff Tox B Gene Negative (NEGATIVE) 03/10/20 10:00 Stl C. diff [id number] Negative (NEGATIVE) 03/10/20 10:00 Cryptosporid parvum Ag Negative (NEGATIVE) 03/10/20 10:00 Giardia lamblia Ag Negative (NEGATIVE) 03/10/20 10:00 - Plan (1) Acute diverticulitis Status: Acute Plan: ADMIT, CIPRO 400MG IV Q12H, FLAGYL 500MG IV Q6H, A PROTONIX DRIP, NORMAL SALINE AT 125ML/HR, MORPHINE 2MG IV Q6H PRN PAIN, LOVENOX 30MG SC DAILY, BENTYL 10MG PO TID, AND HOME MEDICATIONS WERE RESUMED (2) Campylobacter intestinal infection Status: Acute Plan: CIPRO 400MG IV Q12H, CONTINUE TO MONITOR (3) Colitis Status: Acute (4) GI (gastrointestinal bleed) Status: Inactive Qualifiers: GI bleed type/associated pathology: unspecified gastrointestinal hemorrhage type Qualified Code(s): K92.2 - Gastrointestinal hemorrhage, unspecified (5) Abdominal pain Status: Acute Qualifiers: Abdominal location: epigastric Qualified Code(s): R10.13 - Epigastric pain (6) Generalized weakness Status: Acute Plan: OBTAIN BRAIN CT, CONTINUE TO MONITOR (7) Mild dehydration Status: Acute Plan: NORMAL SALINE AT 125ML/HR, CONTINUE TO MONITOR (8) Inferior pubic ramus fracture Status: Acute Qualifiers: Encounter type: initial encounter Fracture type: closed Laterality: right Qualified Code(s): S32.591A - Other specified fracture of right pubis, initial encounter for closed fracture (9) Fracture of anterior wall of acetabulum Status: Acute Qualifiers: Encounter type: initial encounter Fracture type: closed Fracture alignme nt: nondisplaced Laterality: right Qualified Code(s): S32.414A - Nondisplaced fracture of anterior wall of right acetabulum, initial encounter for closed fracture
[2020-03-11] MEDS: MAGNESIUM SULFATE 1 GRAM/100 mL PREMIX 1 GM/100 ML BAG IV PRN (23:00)
[2020-03-12] MEDS: MAGNESIUM SULFATE 1 GRAM/100 mL PREMIX 1 GM/100 ML BAG IV PRN ×3 (01:00→02:00)
[2020-03-12] MEDS: NS 1000 ML 1,000 ML IV SCH ×3 (03:53→23:49)
[2020-03-12] MEDS: FLAGYL IV PREMIX 500 MG BAG 500 MG/100 ML BAG IV SCH ×4 (03:54→21:02)
[2020-03-12] MEDS: K-DUR TAB 20 MEQ PO PRN (03:55)
[2020-03-12 06:33] LABS: BASOPHILS % (AUTO) 0.6 % (0.2-1.0); EOSINOPHILS # (AUTO) 0.2 x10^3/uL (0.0-0.2); EOSINOPHILS % (AUTO) 4.3 % (0.9-2.9); HEMATOCRIT 26.5 % (36.0-47.0); HEMOGLOBIN 9.1 g/dL (12.0-16.0); LYMPHOCYTES # (AUTO) 0.6 X10^3/uL (1.3-2.9); LYMPHOCYTES % (AUTO) 12.7 % (21.0-51.0); MEAN CORPUSCULAR HEMOGLOBIN 32.6 pg (27.0-34.0); MEAN CORPUSCULAR HGB CONC 34.4 g/dL (33.0-35.0); MEAN CORPUSCULAR VOLUME 94.9 fL (80.0-100.0); MEAN PLATELET VOLUME 8.1 fL (7.4-11.0); MONOCYTES # (AUTO) 0.3 x10^3/uL (0.3-0.8); MONOCYTES % (AUTO) 6.7 % (0.0-13.0); NEUTROPHILS # (AUTO) 3.5 x10^3/uL (2.2-4.8); NEUTROPHILS % (AUTO) 75.7 % (42.0-75.0); PLATELET COUNT 71 X10^3/uL (150.0-450.0); RED CELL DISTRIBUTION WIDTH 14.5 % (11.6-16.5); WHITE BLOOD COUNT 4.6 X10^3/uL (3.6-10.0)
[2020-03-12 06:43] LABS: ALANINE AMINOTRANSFERASE 9 Units/L (12-78); ALBUMIN 2.3 g/dL (3.4-5.0); ALKALINE PHOSPHATASE 59 Units/L (46-116); ASPARTATE AMINO TRANSFERASE 16 Units/L (15-37); BLOOD UREA NITROGEN 4 mg/dL (7-18); CALCIUM 7.7 mg/dL (8.5-10.1); CARBON DIOXIDE 23.1 mmol/L (21-32); CHLORIDE 107 mmol/L (98-107); COR CA(FOR HYPOALB) 9.1 mg/dL (8.5-10.1); CREATININE 0.83 mg/dL (0.55-1.02); SODIUM 138 mmol/L (136-145); TOTAL PROTEIN 5.3 g/dL (6.4-8.2); eGFR NON BLACK RACES > 60 (>60)
[2020-03-12] MEDS: BENTYL CAP 10 MG PO SCH ×3 (07:15→21:05)
[2020-03-12] MEDS ORDERED: PROTONIX INJ 40 MG VIAL ONE (10:11)
[2020-03-12] MEDS: PROTONIX INJ 40 MG VIAL 80 MG in NS 100 ML IV 80 ML IV SCH ×2 (10:21→19:00)
[2020-03-12] MEDS: XANAX PO SCH ×2 (10:23→21:07)
[2020-03-12] MEDS: ZOCOR TAB 20 MG PO SCH (10:23)
[2020-03-12] MEDS: CLARITIN PO SCH (10:24)
[2020-03-12] MEDS: SYNTHROID 100 mcg TAB PO SCH (10:24)
[2020-03-12] MEDS: FERROUS GLUCONATE PO SCH ×2 (10:25→21:07)
[2020-03-12] MEDS: CHOLECALCIFEROL PO SCH (10:25)
[2020-03-12] MEDS: ARICEPT TAB 10 MG PO SCH (10:25)
[2020-03-12] MEDS: CARDIZEM CD 240 MG 24-HR PO SCH (10:25)
[2020-03-12] MEDS: [UNRECOGNIZED DRUG - OTHER] PO SCH (10:25)
[2020-03-12] MEDS: CIPRO IV 400 MG PREMIX* 400 MG/200 ML IV.SOLN. IV SCH ×3 (10:25→22:05)
[2020-03-12] MEDS: MESALAMINE PO SCH (10:26)
[2020-03-12] MEDS: LOVENOX INJ 30 MG SYR SC SCH (10:26)
--- NOTE | 2020-03-12 12:10 | PCM.PROG ---
Progress Note - Progress Note for Day of Date of Exam: 03/12/20 - Subjective Subjective: IS BEING TREATED FOR ACUTE DIVERTICULITIS, CAMPYLOBACTER, GI BLEED, ABDOMINAL PAIN, AND A RIGHT SIDE PUBIC RAMI AND ACETABULAR WALL FRACTUE. TODAY, SHE IS ALERT AND ORIENTED, LYING IN BED ON MORNING ROUNDS. SHE CONTINUES WITH ABDOMINAL PAIN, DIARRHEA, AND RIGHT HIP PAIN TODAY. SHE ALSO REPORTS PAIN TO MOUTH AND TONGUE. ON EXAMINATION, SHE IS NOTED WITH WHITE PATCHES TO MOUTH AND TONGUE. HEART IS REGULAR IN RATE AND RHYTHM. BILATERAL LUNGS ARE NOTED WITH DIMINISHED LUNG SOUNDS THROUGHOUT. ABDOMEN IS ROUND, SOFT, AND NOTED WITH DIFFUSE TENDERNESS THROUGHOUT. RIGHT HIP IS NOTED WITH TENDERNESS AND BRUISING. A KING CATHETER IS NOTED TO BEDSIDE DRAINAGE. HER VITALS THIS MORNING ARE: 99.9-77-20-93%NC-129/60. LABS WERE OBTAINED. ABNORMAL LAB VALUES INCLUDE THE FOLLOWING: RBC 2.80, HGB 9.1, HCT 26.5, PLT COUNT 71, BUN 4, CALCIUM 7.7, ALT 9, TOTAL PROTEIN 5.3, ALBUMIN 2.3. STOOL STUDIES ARE POSITVE FOR OCCULT BLOOD AND WHITE CELLS. SHE IS CURRENTLY RECEIVING CIPRO 400MG IV Q12H, FLAGYL 500MG IV Q6H, A PROTONIX DRIP, NORMAL SALINE AT 125ML/HR, MORPHINE 2MG IV Q6H PRN PAIN, LOVENOX 30MG SC DAILY, BENTYL 10MG PO TID, AND HOME MEDICATIONS WERE RESUMED. TODAY, WE WILL START DIFLUCAN 200MG PO DAILY AND NYSTATIN SWISH AN SWALLOW QID FOR ORAL CANDIDIASIS. WE WILL REPEAT AN ABDOMEN/PELVIS CT WITH CONTRAST IN THE MORNING. OTHERWISE, WE WILL FOLLOW UP WITH AM LABS AND CONTINUE TO MONITOR. - Past Medical Family Social History Past Med/Fam/Surg Hx: No changes since H&P Allergies: Allergies No Known Drug Allergies Allergy (Verified 03/08/20 12:06) - Review of Systems ROS: No change since H&P - Vital Signs and I&O's Vital Signs: Temperature 99.9 F Pulse Rate [Right] 77 Pulse Rate 65 Respiratory Rate 20 Blood Pressure [Right Arm] 106/52 Blood Pressure [Left Arm] 129/60 Blood Pressure [Right Arm] 156/62 Blood Pressure 135/66 O2 Sat by Pulse Oximetry 93 Intake and Output: Intake & Output 05/1903/11/20 03/12/20 03/13/20 11:59 11:59 11:59 11:59 Intake Total 1979 4488 / 4488 6158 / 6158 Output Total 1300 / 1300 4700 / 4700 5650 / 5650 Balance 680 / 680 -212 / -212 508 / 508 - Physical Exam Oriented: Normal Eyes: Normal Ear: Normal Nose: Normal Respiratory: Generalized, Diminished Cardiovascular: Normal : Normal Auscultation: Bowel Sounds: Normal Palpation: Normal Tenderness: Diffuse, Epigastric, Moderate. negative: Rebound, Guarding, Rigidity Skin: Normal Musculoskeletal: Back:Lumbar Psychiatric: Normal Mood Description: Calm Affect: Normal Speech Pattern: Clear, Appropriate - Laboratory and Diagnostics Result Diagrams: 03/12/20 06:00 03/12/20 06:00 Labs: 03/10/20 10:00 Stool Stool Culture - Final 03/10/20 10:00 Stool - Final 03/09/20 15:40 Urine,Catheterized Urine Culture - Final Laboratory WBC 4.6 X10^3/uL (3.6-10.0) 03/12/20 06:00 RBC 2.80 X10^6/uL (3.5-5.4) L 03/12/20 06:00 Hgb 9.1 g/dL (12.0-16.0) L 03/12/20 06:00 Hct 26.5 % (36.0-47.0) L 03/12/20 06:00 MCV 94.9 fL (80.0-100.0) 03/12/20 06:00 MCH 32.6 pg (27.0-34.0) 03/12/20 06:00 MCHC 34.4 g/dL (33.0-35.0) 03/12/20 06:00 RDW 14.5 % (11.6-16.5) 03/12/20 06:00 Plt Count 71 X10^3/uL (150.0-450.0) L 03/12/20 06:00 MPV 8.1 fL (7.4-11.0) 03/12/20 06:00 Neut % (Auto) 75.7 % (42.0-75.0) H 03/12/20 06:00 Lymph % (Auto) 12.7 % (21.0-51.0) L 03/12/20 06:00 [place] % (Auto) 6.7 % (0.0-13.0) 03/12/20 06:00 Eos % (Auto) 4.3 % (0.9-2.9) H 03/12/20 06:00 Baso % (Auto) 0.6 % (0.2-1.0) 03/12/20 06:00 Neut # (Auto) 3.5 x10^3/uL (2.2-4.8) 03/12/20 06:00 Lymph # (Auto) 0.6 X10^3/uL (1.3-2.9) L 03/12/20 06:00 [place] # (Auto) 0.3 x10^3/uL (0.3-0.8) 03/12/20 06:00 Eos # (Auto) 0.2 x10^3/uL (0.0-0.2) 03/12/20 06:00 Baso # (Auto) 0.0 X10^3/uL (0.0-0.1) 03/12/20 06:00 Absolute Nucleated RBC 0.0 /100WBC 03/12/20 06:00 ESR 14 MM/HOUR (0-20) 03/10/20 05:44 Sodium 138 mmol/L (136-145) 03/12/20 06:00 Corrected Sodium TNP 03/12/20 06:00 Potassium 3.7 mmol/L (3.5-5.1) 03/12/20 06:00 Chloride 107 mmol/L (98-107) 03/12/20 06:00 Carbon Dioxide 23.1 mmol/L (21-32) 03/12/20 06:00 BUN 4 mg/dL (7-18) L 03/12/20 06:00 Creatinine 0.83 mg/dL (0.55-1.02) 03/12/20 06:00 Est GFR (MDRD) Af Amer > 60 (>60) 03/12/20 06:00 Est GFR (MDRD) Non-Af > 60 (>60) 03/12/20 06:00 Glucose 96 mg/dL (65-99) 03/12/20 06:00 Calcium 7.7 mg/dL (8.5-10.1) L 03/12/20 06:00 Corrected Calcium 9.1 mg/dL (8.5-10.1) 03/12/20 06:00 Magnesium 2.0 mg/dL (1.7-2.9) 03/12/20 06:00 Total Bilirubin 0.30 mg/dL (0.2-1.0) 03/12/20 06:00 AST 16 Units/L (15-37) 03/12/20 06:00 ALT 9 Units/L (12-78) L 03/12/20 06:00 Alkaline Phosphatase 59 Units/L (46-116) 03/12/20 06:00 C-Reactive Protein 45.90 mg/L (0-3.0) H 03/10/20 05:44 Total Protein 5.3 g/dL (6.4-8.2) L 03/12/20 06:00 Albumin 2.3 g/dL (3.4-5.0) L 03/12/20 06:00 Globulin 3.0 g/dL (2.5-4.5) 03/12/20 06:00 Albumin/Globulin Ratio 0.8 Ratio (1.1-2.1) L 03/12/20 06:00 Amylase 16 Units/L (25-115) L 03/09/20 06:07 Lipase 65 Units/L (73-393) L 03/09/20 06:07 Specimen Type Catherized urine 03/09/20 15:40 Urine Color Yellow (YELLOW) 03/09/20 15:40 Urine Appearance Hazy (CLEAR) 03/09/20 15:40 Urine pH 6.0 (5.0 - 8.0) 03/09/20 15:40 Ur Specific [place] 1.020 (1.000-1.030) 03/09/20 15:40 Urine Protein 2+ (NEGATIVE) 03/09/20 15:40 Urine Glucose (UA) Negative (NEGATIVE) 03/09/20 15:40 Urine Ketones Negative (NEGATIVE) 03/09/20 15:40 Urine Occult Blood 1+ (NEGATIVE) 03/09/20 15:40 Urine Nitrite Negative (NEGATIVE) 03/09/20 15:40 Urine Bilirubin Negative (NEGATIVE) 03/09/20 15:40 Urine Urobilinogen Normal (NORMAL) 03/09/20 15:40 Ur Leukocyte Esterase 3+ (NEGATIVE) 03/09/20 15:40 Urine RBC 0-2 /HPF (0-3) 03/09/20 15:40 Urine WBC 10-20 /HPF (0-5) A 03/09/20 15:40 Ur Squamous Epith Cells Moderate /HPF (NEGATIVE) 03/09/20 15:40 Urine Bacteria Trace /HPF (NEGATIVE) 03/09/20 15:40 Ur Culture Indicated? Yes/culture set up 03/09/20 15:40 Stool Description 100g unformed brown 03/10/20 10:00 Stool Description 100g unformed brown 03/10/20 10:00 Stl Occult Blood (IFOB) Positive (NEGATIVE) A 03/10/20 10:00 Stool for White Cells Positive (NEGATIVE) A 03/10/20 10:00 Stl C. diff Tox B Gene Negative (NEGATIVE) 03/10/20 10:00 Stl C. diff [id number] Negative (NEGATIVE) 03/10/20 10:00 Cryptosporid parvum Ag Negative (NEGATIVE) 03/10/20 10:00 Giardia lamblia Ag Negative (NEGATIVE) 03/10/20 10:00 - Plan (1) Acute diverticulitis Status: Acute Plan: CIPRO 400MG IV Q12H, FLAGYL 500MG IV Q6H, A PROTONIX DRIP, NORMAL SALINE AT 125ML/HR, MORPHINE 2MG IV Q6H PRN PAIN, LOVENOX 30MG SC DAILY, BENTYL 10MG PO TID, AND HOME MEDICATIONS WERE RESUMED (2) Campylobacter intestinal infection Status: Acute Plan: CIPRO 400MG IV Q12H, CONTINUE TO MONITOR (3) Colitis Status: Acute (4) GI (gastrointestinal bleed) Status: Inactive Qualifiers: GI bleed type/associated pathology: unspecified gastrointestinal hemorrhage type Qualified Code(s): K92.2 - Gastrointestinal hemorrhage, unspecified (5) Abdominal pain Status: Acute Qualifiers: Abdominal location: epigastric Qualified Code(s): R10.13 - Epigastric pain (6) Generalized weakness Status: Acute Plan: CONTINUE TO MONITOR (7) Mild dehydration Status: Acute Plan: NORMAL SALINE AT 125ML/HR, CONTINUE TO MONITOR (8) Inferior pubic ramus fracture Status: Acute Qualifiers: Encounter type: initial encounter Fracture type: closed Laterality: right Qualified Code(s): S32.591A - Other specified fracture of right pubis, initial encounter for closed fracture (9) Fracture of anterior wall of acetabulum Status: Acute Qualifiers: Encounter type: initial encounter Fracture type: closed Fracture alignment: nondisplaced Laterality: right Qualified Code(s): S32.414A - Nondisplaced fracture of anterior wall of right acetabulum, initial encounter for closed fracture (10) Oral candidiasis Status: Acute Plan: NYSTATIN SWISH AND SWALLOW QID, DIFLUCAN 200MG PO DAILY
[2020-03-12] MEDS: NYSTATIN SUSP MT SCH ×3 (13:03→21:02)
[2020-03-12] MEDS: DIFLUCAN 200 MG IV PREMIX* 200 MG/100 ML BAG IV SCH (13:03)
[2020-03-12] MEDS ORDERED: BUTT CREAM (COMPOUND) TOP PRN (15:07)
[2020-03-12] MEDS ORDERED: BUTT CREAM (COMPOUND) ONE (15:08)
[2020-03-12] MEDS ORDERED: TYLENOL 325 MG TAB PO PRN (19:53)
[2020-03-12] MEDS ORDERED: ZOLOFT PO ONE (20:29)
[2020-03-12] MEDS: ZOLOFT PO SCH (21:07)
[2020-03-12] MEDS: SEROquel TAB 25 mg PO SCH (21:07)
[2020-03-13] MEDS: NS 1000 ML 1,000 ML IV SCH ×2 (02:38→11:38)
[2020-03-13] MEDS: FLAGYL IV PREMIX 500 MG BAG 500 MG/100 ML BAG IV SCH ×2 (03:50→08:56)
[2020-03-13] MEDS: BENTYL CAP 10 MG PO SCH (06:03)
[2020-03-13] MEDS: PROTONIX INJ 40 MG VIAL 80 MG in NS 100 ML IV 80 ML IV SCH (06:03)
[2020-03-13 06:27] LABS: BASOPHILS % (AUTO) 0.7 % (0.2-1.0); EOSINOPHILS # (AUTO) 0.2 x10^3/uL (0.0-0.2); EOSINOPHILS % (AUTO) 6.1 % (0.9-2.9); HEMOGLOBIN 9.2 g/dL (12.0-16.0); LYMPHOCYTES # (AUTO) 0.6 X10^3/uL (1.3-2.9); LYMPHOCYTES % (AUTO) 16.4 % (21.0-51.0); MEAN CORPUSCULAR HEMOGLOBIN 32.3 pg (27.0-34.0); MEAN CORPUSCULAR VOLUME 95.2 fL (80.0-100.0); MEAN PLATELET VOLUME 8.1 fL (7.4-11.0); MONOCYTES # (AUTO) 0.3 x10^3/uL (0.3-0.8); MONOCYTES % (AUTO) 7.8 % (0.0-13.0); NEUTROPHILS # (AUTO) 2.5 x10^3/uL (2.2-4.8); PLATELET COUNT 72 X10^3/uL (150.0-450.0); RED BLOOD COUNT 2.84 X10^6/uL (3.5-5.4); RED CELL DISTRIBUTION WIDTH 14.5 % (11.6-16.5); WHITE BLOOD COUNT 3.6 X10^3/uL (3.6-10.0)
[2020-03-13 06:40] LABS: ALANINE AMINOTRANSFERASE 12 Units/L (12-78); ALBUMIN 2.2 g/dL (3.4-5.0); ALKALINE PHOSPHATASE 62 Units/L (46-116); ASPARTATE AMINO TRANSFERASE 16 Units/L (15-37); BLOOD UREA NITROGEN 6 mg/dL (7-18); CALCIUM 7.7 mg/dL (8.5-10.1); CARBON DIOXIDE 25.8 mmol/L (21-32); CHLORIDE 107 mmol/L (98-107); COR CA(FOR HYPOALB) 9.1 mg/dL (8.5-10.1); CREATININE 0.85 mg/dL (0.55-1.02); SODIUM 139 mmol/L (136-145); TOTAL PROTEIN 5.4 g/dL (6.4-8.2); eGFR NON BLACK RACES > 60 (>60)
--- NOTE | 2020-03-13 06:52 | CT ---
HISTORYFollow-up diverticulitisSTUDYABDOMEN/PELVIS WITH CONTechnique: Axial post-contrast images with coronal and sagittal reformats. Dose reduction procedures were used with mA/kv adjusted for body size.[id number]/17/2020, 04/21/2017, 01/24/2017FINDINGSThere has been interval development of bilateral small pleural effusions since the prior examination. Dependent atelectatic changes are present in the lung bases which are also new. The heart remains enlarged. The liver, spleen, adrenal glands, and pancreas are within normal limits. No opaque stones are present within the gallbladder. There is dilatation of the common bile duct which can be followed to the ampulla. No opaque calculi are identified. There is no visible mass within the head of the pancreas. This finding is unchanged from examinations dating back to 01/24/2017. The etiology is unclear. Laboratory correlation is recommended in order to exclude an obstructive picture that would require evaluation with ERCP. The kidneys are unobstructed and without solid masses. Left upper pole renal calculi are present, nonobstructing. Left renal cysts are present. No ureteral calculi are identified. Calcific atherosclerotic change is present in a nondilated abdominal aorta. No intraperitoneal or retroperitoneal lymphadenopathy of significance is identified. There is no evidence for enteritis. There has been significant improvement the in the transmural thickening and pericolonic inflammatory change present on the prior examination in the distal descending and sigmoid colon. There is little residual pericolonic inflammation. There is some wall thickening remaining. Examination of the pelvis demonstrated no evidence for pelvic masses, pelvic fluid, or pelvic lymphadenopathy. There is a Das catheter draining the bladder. There is a pessary in place. No lytic or blastic skeletal lesions of significance are identified.IMPRESSIONSignificant improvement in the inflammatory changes noted on the prior examination in the distal descending and sigmoid colon. Residual transmural thickening remains.Dilatation of the common bile duct as described which can be followed to the ampulla. No opaque calculi identified. This finding is unchanged since 2017 and is of uncertain etiology. Laboratory correlation is recommended in order to exclude an obstructive process that would require evaluation with ERCPNonobstructing left renal calculiInterval development of bilateral small pleural effusions and dependent atelectatic changes in the lung bases bilaterallyElectronically signed by: KIRK MERINO (March 13, 2020 06:50:21)
[2020-03-13] MEDS: FERROUS GLUCONATE PO SCH (08:53)
[2020-03-13] MEDS: XANAX PO SCH (08:53)
[2020-03-13] MEDS: ARICEPT TAB 10 MG PO SCH (08:53)
[2020-03-13] MEDS: CLARITIN PO SCH (08:55)
[2020-03-13] MEDS: CARDIZEM CD 240 MG 24-HR PO SCH (08:55)
[2020-03-13] MEDS: SYNTHROID 100 mcg TAB PO SCH (08:55)
[2020-03-13] MEDS: CIPRO IV 400 MG PREMIX* 400 MG/200 ML IV.SOLN. IV SCH (08:56)
[2020-03-13] MEDS: LOVENOX INJ 30 MG SYR SC SCH (08:56)
[2020-03-13] MEDS: DIFLUCAN 200 MG IV PREMIX* 200 MG/100 ML BAG IV SCH (08:56)
[2020-03-13] MEDS: [UNRECOGNIZED DRUG - OTHER] PO SCH (08:57)
[2020-03-13] MEDS: NYSTATIN SUSP MT SCH ×2 (08:57→12:25)
[2020-03-13] MEDS: CHOLECALCIFEROL PO SCH (08:57)
[2020-03-13] MEDS: MESALAMINE PO SCH (08:57)
--- NOTE | 2020-03-13 09:17 | RAD ---
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 The medial and lateral tibiofemoral compartments appear unremarkable without loss of significant joint space. The lateral radiograph fails to demonstrate significant joint effusion. Patellofemoral compartment is normal in its appearance.IMPRESSIONNegative examElectronically signed by: KARLENE BRADLEY (March 13, 2020 09:16:18)
[2020-03-13] MEDS: ZOCOR TAB 20 MG PO SCH (12:25)
[2020-03-13 14:31] VITALS: BP 130/60
== END 2020-03-13 13:55 | disposition home health service (06) | DRG 378 ==
LOC: ER 12:01 → MED/SURG 16:53
PROVIDERS: ADMIT Internal Medicine; ATTEND Internal Medicine
DX: S32.414A Nondisplaced fracture of anterior wall of right acetabulum, initial encounter for closed fracture; A04.5 Campylobacter enteritis; S09.8XXA Other specified injuries of head, initial encounter; R63.0 Anorexia; K21.9 Gastro-esophageal reflux disease without esophagitis; K59.09 Other constipation; W18.39XA Other fall on same level, initial encounter; R10.13 Epigastric pain; R94.31 Abnormal electrocardiogram [ECG] [EKG]; Y92.231 Patient bathroom in hospital as the place of occurrence of the external cause; I10 Essential (primary) hypertension; N39.0 Urinary tract infection, site not specified; M54.5 Low back pain; R10.84 Generalized abdominal pain; K57.91 Diverticulosis of intestine, part unspecified, without perforation or abscess with bleeding; R53.1 Weakness; E86.0 Dehydration; M25.561 Pain in right knee; R26.89 Other abnormalities of gait and mobility; M25.552 Pain in left hip; S32.591A Other specified fracture of right pubis, initial encounter for closed fracture; E78.2 Mixed hyperlipidemia; B37.0 Candidal stomatitis
CPT/HCPCS: 36415; 70450; 72170; 72192; 73560; 74176; 74177; 80053; 81001; 82150; 82270; 83630; 83690; 83735; 85025; 85652; 86140; 87040; 87045; 87086; 87328; 87329; 87449; 87493; 87899; 93005; 94760; 96365; 96367; 96374; 96375; 97110; 97162; 97166; 97530; 99284; A4222; C9113; J0696; J0744; J1450; J1650; J2270; J3475; J3490; J7030; J7050; S0030

== ENCOUNTER 2021-05-31 00:02 | Observation (INO) ==
--- NOTE | 2021-05-31 00:42 | DR.PEXTPAI ---
HPI Time seen Time Seen by Provider: 05/31/21 00:40 PMH Past Surgical History Past Surgical History: Yes Vaccines Hx Measles, Mumps, Rubella Vaccination: Yes Hx Varicella Vaccination: Yes Pneumococcal Vaccine Every 5 Yrs: Yes Hx Meningococcal Vaccination: Yes PE Vital Signs Vitals: Temperature 97.5 F Pulse Rate [Right Brachial] 62 Pulse Rate 64 Respiratory Rate 20 Blood Pressure [Right Arm] 167/73 Blood Pressure 171/77 O2 Sat by Pulse Oximetry 96 ROR Labs Reviewed Result Diagrams: 05/31/21 01:20 05/31/21 01:20 Laboratory: WBC 6.5 X10^3/uL (3.6-10.0) 05/31/21 01:20 RBC 3.69 X10^6/uL (3.5-5.4) 05/31/21 01:20 Hgb 11.8 g/dL (12.0-16.0) L 05/31/21 01:20 Hct 35.1 % (36.0-47.0) L 05/31/21 01:20 MCV 95.0 fL (80.0-100.0) 05/31/21 01:20 MCH 32.0 pg (27.0-34.0) 05/31/21 01:20 MCHC 33.7 g/dL (33.0-35.0) 05/31/21 01:20 RDW 12.4 % (11.6-16.5) 05/31/21 01:20 Plt Count 103 X10^3/uL (150.0-450.0) L 05/31/21 01:20 MPV 8.8 fL (7.4-11.0) 05/31/21 01:20 Neut % (Auto) 76.0 % (42.0-75.0) H 05/31/21 01:20 Lymph % (Auto) 18.1 % (21.0-51.0) L 05/31/21 01:20 [place] % (Auto) 4.5 % (0.0-13.0) 05/31/21 01:20 Eos % (Auto) 0.8 % (0.9-2.9) L 05/31/21 01:20 Baso % (Auto) 0.6 % (0.2-1.0) 05/31/21 01:20 Neut # (Auto) 5.0 x10^3/uL (2.2-4.8) H 05/31/21 01:20 Lymph # (Auto) 1.2 X10^3/uL (1.3-2.9) L 05/31/21 01:20 [place] # (Auto) 0.3 x10^3/uL (0.3-0.8) 05/31/21 01:20 Eos # (Auto) 0.0 x10^3/uL (0.0-0.2) 05/31/21 01:20 Baso # (Auto) 0.0 X10^3/uL (0.0-0.1) 05/31/21 01:20 Absolute Nucleated RBC 0.1 /100WBC 05/31/21 01:20 Sodium 150 mmol/L (136-145) H* 05/31/21 01:20 Corrected Sodium TNP 05/31/21 01:20 Potassium 3.4 mmol/L (3.5-5.1) L 05/31/21 01:20 Chloride 111 mmol/L (98-107) H 05/31/21 01:20 Carbon Dioxide 30.8 mmol/L (21-32) 05/31/21 01:20 BUN 18 mg/dL (7-18) 05/31/21 01:20 Creatinine 1.16 mg/dL (0.55-1.02) H 05/31/21 01:20 Est GFR (MDRD) Af Amer 57 (>60) L 05/31/21 01:20 Est GFR (MDRD) Non-Af 47 (>60) L 05/31/21 01:20 Glucose 105 mg/dL (65-99) H 05/31/21 01:20 Calcium 11.2 mg/dL (8.5-10.1) H 05/31/21 01:20 Corrected Calcium TNP 05/31/21 01:20 Total Bilirubin 0.30 mg/dL (0.2-1.0) 05/31/21 01:20 AST 19 Units/L (15-37) 05/31/21 01:20 ALT 14 Units/L (12-78) 05/31/21 01:20 Alkaline Phosphatase 124 Units/L (46-116) H 05/31/21 01:20 Creatine Kinase 70 Units/L (26-192) 05/31/21 01:20 CK-MB (CK-2) < 1.0 ng/mL (0-4.0) 05/31/21 01:20 CK/CKMB % Calc 1.4 % (<4) 05/31/21 01:20 Troponin I < 0.02 ng/mL (0-1.5) 05/31/21 01:20 Total Protein 6.9 g/dL (6.4-8.2) 05/31/21 01:20 Albumin 3.4 g/dL (3.4-5.0) 05/31/21 01:20 Globulin 3.5 g/dL (2.5-4.5) 05/31/21 01:20 Albumin/Globulin Ratio 1.0 Ratio (1.1-2.1) L 05/31/21 01:20 SARS-CoV-2 (PCR) Negative (NEGATIVE) 05/31/21 02:57 Influenza Type A (PCR) Negative (NEGATIVE) 05/31/21 02:57 Influenza Type B (PCR) Negative (NEGATIVE) 05/31/21 02:57 RSV (PCR) Negative (NEGATIVE) 05/31/21 02:57 Opioid Opioid Risk Tool Age ([place] if 16-45): No History of Preadolescent Sexual Abuse: No Total: 0 Total Score Risk Category: Low Risk Copyright: Pierre LOZANO predicting aberrant behaviors Diagnosis Discharge Problem: Hypernatremia, Generalized weakness, AMS (altered mental status)
[2021-05-31 01:51] LABS: BASOPHILS % (AUTO) 0.6 % (0.2-1.0); EOSINOPHILS % (AUTO) 0.8 % (0.9-2.9); HEMATOCRIT 35.1 % (36.0-47.0); HEMOGLOBIN 11.8 g/dL (12.0-16.0); LYMPHOCYTES # (AUTO) 1.2 X10^3/uL (1.3-2.9); LYMPHOCYTES % (AUTO) 18.1 % (21.0-51.0); MEAN CORPUSCULAR HGB CONC 33.7 g/dL (33.0-35.0); MEAN PLATELET VOLUME 8.8 fL (7.4-11.0); MONOCYTES # (AUTO) 0.3 x10^3/uL (0.3-0.8); MONOCYTES % (AUTO) 4.5 % (0.0-13.0); PLATELET COUNT 103 X10^3/uL (150.0-450.0); RED BLOOD COUNT 3.69 X10^6/uL (3.5-5.4); RED CELL DISTRIBUTION WIDTH 12.4 % (11.6-16.5); WHITE BLOOD COUNT 6.5 X10^3/uL (3.6-10.0)
--- NOTE | 2021-05-31 01:54 | CT ---
PROCEDURE: CT Head without Contrast .HISTORY: Altered mental status.TECHNIQUE: Axial images were performed through the head without the administration of IV contrast with multiplanar reformations . Dose reduction techniques including Automated Exposure Control (AEC) and adjustment of mA and kV were utilized .COMPARISON: 03/09/2020.TECHNICAL QUALITY: Satisfactory .FINDINGS:Brain shows no mass, hemorrhage, or acute stroke.Moderate periventricular old micro ischemic changes. [id number] diffuse cerebral and cerebellar atrophy.Ventricles are normal size for patient's age.No acute skull or scalp abnormality.Visualized sinuses and mastoids are clear.IMPRESSION:1. No acute intracranial abnormality.2. Senescent changes.Electronically signed by: Elmer Kemp (May 31, 2021 01:51:52)
[2021-05-31 02:12] LABS: ALANINE AMINOTRANSFERASE 14 Units/L (12-78); ALBUMIN 3.4 g/dL (3.4-5.0); ALKALINE PHOSPHATASE 124 Units/L (46-116); ASPARTATE AMINO TRANSFERASE 19 Units/L (15-37); BLOOD UREA NITROGEN 18 mg/dL (7-18); CALCIUM 11.2 mg/dL (8.5-10.1); CARBON DIOXIDE 30.8 mmol/L (21-32); CHLORIDE 111 mmol/L (98-107); CKMB % 1.4 % (<4); CREATINE KINASE 70 Units/L (26-192); CREATINE KINASE MB < 1.0 ng/mL (0-4.0); CREATININE 1.16 mg/dL (0.55-1.02); TOTAL PROTEIN 6.9 g/dL (6.4-8.2); TROPONIN I < 0.02 ng/mL (0-1.5); eGFR NON BLACK RACES 47 (>60)
[2021-05-31 02:15] LABS: SODIUM 150 mmol/L (136-145)
--- NOTE | 2021-05-31 03:39 | RAD ---
PROCEDURE: Chest X-ray 1 View .HISTORY: Dyspnea.TECHNIQUE: AP view .COMPARISON: 11/03/2020.TECHNICAL QUALITY: Satisfactory .FINDINGS:Normal size heart with pacemaker on the left.Mediastinum and hilar regions show no masses or lymphadenopathy .Normal central vascularity .No pulmonary consolidation, masses, pleural fluid, or pneumothorax. Emphysematous changes with hyper expansion and hyperlucency that is unchanged.No acute bony abnormality .IMPRESSION:1. COPD.2. No other evidence of active disease.Electronically signed by: Elmer Kemp (May 31, 2021 03:36:53)
[2021-05-31] MEDS ORDERED: NS 1/2 1000 ML IV 1,000 ML IV ONE (03:56)
[2021-05-31] MEDS ORDERED: NS 1/2 1000 ML IV 1,000 ML IV SCH (04:00)
[2021-05-31 05:58] VITALS: BMI 23.9
[2021-05-31 06:23] LABS: BASOPHILS % (AUTO) 0.6 % (0.2-1.0); EOSINOPHILS % (AUTO) 0.9 % (0.9-2.9); HEMATOCRIT 33.9 % (36.0-47.0); HEMOGLOBIN 11.5 g/dL (12.0-16.0); LYMPHOCYTES # (AUTO) 1.6 X10^3/uL (1.3-2.9); LYMPHOCYTES % (AUTO) 31.8 % (21.0-51.0); MEAN CORPUSCULAR HEMOGLOBIN 32.3 pg (27.0-34.0); MEAN PLATELET VOLUME 8.7 fL (7.4-11.0); MONOCYTES # (AUTO) 0.3 x10^3/uL (0.3-0.8); MONOCYTES % (AUTO) 5.1 % (0.0-13.0); NEUTROPHILS # (AUTO) 3.1 x10^3/uL (2.2-4.8); NEUTROPHILS % (AUTO) 61.6 % (42.0-75.0); PLATELET COUNT 101 X10^3/uL (150.0-450.0); RED BLOOD COUNT 3.57 X10^6/uL (3.5-5.4); RED CELL DISTRIBUTION WIDTH 12.6 % (11.6-16.5); WHITE BLOOD COUNT 5.1 X10^3/uL (3.6-10.0)
[2021-05-31 07:11] LABS: ALANINE AMINOTRANSFERASE 13 Units/L (12-78); ALBUMIN 3.3 g/dL (3.4-5.0); ALKALINE PHOSPHATASE 122 Units/L (46-116); ASPARTATE AMINO TRANSFERASE 19 Units/L (15-37); BLOOD UREA NITROGEN 17 mg/dL (7-18); CALCIUM 11.4 mg/dL (8.5-10.1); CARBON DIOXIDE 30.8 mmol/L (21-32); CHLORIDE 112 mmol/L (98-107); CKMB % 1.6 % (<4); CREATINE KINASE 64 Units/L (26-192); CREATINE KINASE MB < 1.0 ng/mL (0-4.0); CREATININE 1.01 mg/dL (0.55-1.02); MAGNESIUM 1.4 mg/dL (1.7-2.9); TOTAL PROTEIN 6.8 g/dL (6.4-8.2); TROPONIN I < 0.02 ng/mL (0-1.5); eGFR NON BLACK RACES 56 (>60)
[2021-05-31 07:17] LABS: SODIUM 151 mmol/L (136-145)
[2021-05-31] MEDS: BENTYL CAP 10 MG PO SCH ×3 (07:42→21:56)
[2021-05-31] MEDS: ARICEPT TAB 10 MG PO SCH (08:22)
[2021-05-31] MEDS: ASPIRIN EC 81 MG PO SCH (08:22)
[2021-05-31] MEDS: CITRACAL + VITAMIN D PO SCH (08:23)
[2021-05-31] MEDS: CARDIZEM CD 240 MG 24-HR PO SCH (08:23)
[2021-05-31] MEDS: CLARITIN PO SCH (08:23)
[2021-05-31] MEDS: COZAAR PO SCH (08:24)
[2021-05-31] MEDS: COLACE SYRUP 100 MG UDC PO SCH ×2 (08:24→21:55)
[2021-05-31] MEDS: FERROUS GLUCONATE PO SCH ×2 (08:24→21:55)
[2021-05-31] MEDS: VSL#3 PO SCH (08:25)
[2021-05-31] MEDS: SYNTHROID 100 mcg TAB PO SCH (08:25)
[2021-05-31] MEDS: TAB-A-VITE PO SCH ×2 (08:25→21:56)
[2021-05-31] MEDS: NAMENDA TAB 10 MG PO SCH ×2 (08:25→21:56)
[2021-05-31] MEDS: ZINC SULFATE PO SCH (08:26)
[2021-05-31] MEDS: ZOCOR TAB 20 MG PO SCH (08:26)
[2021-05-31] MEDS ORDERED: PATIENT'S HOME MEDICATION (Ferrous Sulfate 325 mg (65 mg iron) Tablet) PO SCH (09:00)
[2021-05-31] MEDS ORDERED: [UNRECOGNIZED DRUG - OTHER] PO SCH (09:00)
[2021-05-31] MEDS ORDERED: DOCUSATE SODIUM 50 MG PO SCH (09:00)
[2021-05-31] MEDS ORDERED: PATIENT'S HOME MEDICATION (Zinc 50 mg Capsule) PO SCH (09:00)
[2021-05-31 11:34] LABS: CKMB % 1.3 % (<4); CREATINE KINASE MB 1.2 ng/mL (0-4.0); TROPONIN I 0.04 ng/mL (0-1.5)
[2021-05-31] MEDS: MESALAMINE 1.2 GM PO SCH (11:40)
[2021-05-31] MEDS: LOVENOX INJ 40 MG SYR SC SCH (11:40)
[2021-05-31] MEDS: D5W 1000 ML IV 1,000 ML IV SCH (11:41)
[2021-05-31] MEDS ORDERED: ROBITUSSIN DM PO PRN (12:10)
[2021-05-31 12:42] LABS: BILIRUBIN,URINE NEGATIVE (NEGATIVE); BLOOD/HEMOGLOBIN,URINE 2+ (NEGATIVE); GLUCOSE, URINE NEGATIVE (NEGATIVE); KETONES,URINE NEGATIVE (NEGATIVE); LEUKOCYTE ESTERASE ,URINE 3+ (NEGATIVE); NITRITES,URINE POSITIVE (NEGATIVE); PROTEIN,URINE 1+ (NEGATIVE); UROBILINOGEN,URINE NORMAL (NORMAL)
[2021-05-31 12:45] LABS: APPEARANCE,URINE HAZY (CLEAR); COLOR,URINE YELLOW (YELLOW)
[2021-05-31 12:49] LABS: BACTERIA,URINE 1+ /HPF (NEGATIVE); SQUAMOUS EPITHELIAL CELL,UR RARE /HPF (NEGATIVE)
[2021-05-31 12:50] LABS: AMORPHOUS SEDIMENT,UR 1+ /HPF (NEGATIVE)
--- NOTE | 2021-05-31 12:52 | DR.H&P ---
H&P - History & Physical for Day of: H&P Date: 05/31/21 - Chief Complaint Chief Complaint: WEAKNESS, CONFUSION, SLURRED/DELAYED SPEECH - History of Present Illness History of Present Illness: IS A 86 YEAR OLD PATIENT OF OURS. SHE PRES ENTED TO THE ER VIA EMS WITH COMPLAINTS OF GENERALIZED WEAKNESS, SLURRED/DELAYED SPEECH, AND SHUFFLING GAIT. HER FAMILY REPORTS THAT SHE TAKES XANAX AT BEDTIME, BUT IS UNSURE IF SHE TOOK IT PRIOR TO ARRIVAL. HER PMH INCLUDES: CATARACTS, MACULAR DEGENERATION, BLINDNESS, PACEMAKER, HTN, GERD, HERNIA, CHRONIC BACK PAIN, ANEMIA, HERNIA REPAIR. ON ARRIVAL TO THE ER, PATIENT DOES HAVE DELAYED SPEECH AND IS DISORIENTED. ON ARRIVAL, VITALS WERE 97.5-16-64-99%-171/77. LABS WERE OBTAINED. ABNORMAL LAB VALUES INCLUDE THE FOLLOWING: HGB 11.8, HCT 35.1, PLT COUNT 103, SODIUM 150, POTASSIUM 3.4, CHLORIDE 111, CREATININE 1.16, GLUCOSE 105, CALCIUM 11.2, ALK PHOS 124. CARDIAC ENZYMES WERE WITHIN NORMAL LIMITS. COVID-19, INFLUENZA, AND RSV NEGATIVE. CHEST XRAY OBTAINED AND REVEALED: 1. COPD. 2. No other evidence of active disease. BRAIN CT REVEALED: 1. No acute intracranial abnormality. 2. Senescent changes. EKG OBTAINED AND REVEALED: ATRIAL-VENTRICULAR PACED COMPLEXES WITH HR 60. SHE WAS ADMITTED FOR FURTHER EVALUATION AND TREATMENT OF HYPERNATREMIA, AMS, GENERALIZED WEAKNESS. SHE WAS STARTED ON D5W AT 50 ML/HR, LOVENOX 40MG SC DAILY, AND HER HOME MEDICATIONS WERE RESUMED. OTHERWISE, WE PLAN TO FOLLOW UP WITH AM LABS AND CONTINUE TO MONITOR. TIME SPENT ON CLINICAL ASSESSMENT, REVIEWING LABS AND IMAGING, DECISION MAKING, AND DOCUMENTATION GREATER THAN 75 MINUTES. 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, Ortho Surgery, Other Additional Surgical History: PACEMAKER, HERNIA REPAIR - Family History Family Medical History: Hypertension - Social History Does patient currently use any type of tobacco product: No How many years tobacco product used: 20 Alcohol Use: None Drug Use: None - Medications Home Medications: No Known Drug Allergies Allergy (Verified 02/16/21 12:13) CONTINUE taking the following medications L.acid-L.casei-B.bif-B.emmett-FOS [Probiotic Blend] 1 cap PO DAILY 05/31/21 [His tory] alprazolam 0.25 mg PO BID 05/31/21 [History] ascorbic acid (vitamin C) [Vitamin C] 2,000 mg PO DAILY 05/31/21 [History] docusate sodium [Stool Softener] 50 mg PO BID 05/31/21 [History] losartan 37.5 mg PO DAILY 05/31/21 [History] melatonin 3 mg PO HS 05/31/21 [History] memantine 10 mg PO BID 05/31/21 [History] vit C,L-Up-tmqfz-lutein-zeaxan [PreserVision AREDS-2] 1 cap PO BID 05/31/21 [History] zinc 50 mg PO DAILY 05/31/21 [History] - Review of Systems Constitutional: Weakness Eyes: No Symptoms Reported ENT: No Symptoms Reported Respiratory: No Symptoms Reported Gastrointestinal: No Symptoms Reported Genitourinary: No Symptoms Reported Musculoskeletal: No Symptoms Reported Skin: No Symptoms Reported Neurological: See HPI, Weakness, Change in Speech, Confusion - Physical Exam Vital Signs: Temperature 97.5 F Pulse Rate [Right Brachial] 60 Pulse Rate 64 Respiratory Rate 18 Blood Pressure [Right Arm] 178/79 Blood Pressure 171/77 O2 Sat by Pulse Oximetry 99 Oriented: Not Oriented Eyes: Normal Ear: Normal Nose: Normal Throat: Normal Respiratory: Diminished Throughout Cardiovascular: Tachycardia : Normal Auscultation: Bowel Sounds: Normal Palpation: Normal Tenderness: Normal Skin: Decreased Turgur Musculoskeletal: Instability Mood Description: Calm Speech Pattern: Inappropriate - Assessment/Plan (1) Hypernatremia Status: Acute Plan: ADMIT, D5W AT 50 ML/HR, LOVENOX 40MG SC DAILY, AND HER HOME MEDICATIONS WERE RESUMED. (2) AMS (altered mental status) Qualifiers: Altered mental status type: transient alteration of awareness Qualified Code(s): R40.4 - Transient alteration of awareness Status: Acute (3) Generalized weakness Status: Acute - Allergies Allergies/Adverse Reactions: Allergies Allergy/AdvReac Type Severity Reaction Status Date / Time No Known Drug Allergies Allergy Verified 02/16/21 12:13
[2021-05-31] MEDS ORDERED: RESTORIL CAP 15 MG PO PRN (18:10)
[2021-05-31] MEDS ORDERED: QUETIAPINE 50 MG PO SCH (21:00)
[2021-05-31] MEDS: MELATONIN PO SCH (21:55)
[2021-05-31] MEDS: SEROquel TAB 25 mg PO SCH (21:56)
[2021-06-01 06:00] LABS: BASOPHILS % (AUTO) 0.5 % (0.2-1.0); EOSINOPHILS # (AUTO) 0.1 x10^3/uL (0.0-0.2); EOSINOPHILS % (AUTO) 0.7 % (0.9-2.9); HEMATOCRIT 32.2 % (36.0-47.0); LYMPHOCYTES # (AUTO) 1.4 X10^3/uL (1.3-2.9); LYMPHOCYTES % (AUTO) 19.4 % (21.0-51.0); MEAN CORPUSCULAR HEMOGLOBIN 32.5 pg (27.0-34.0); MEAN CORPUSCULAR HGB CONC 34.3 g/dL (33.0-35.0); MEAN CORPUSCULAR VOLUME 94.7 fL (80.0-100.0); MEAN PLATELET VOLUME 8.6 fL (7.4-11.0); MONOCYTES # (AUTO) 0.4 x10^3/uL (0.3-0.8); MONOCYTES % (AUTO) 5.5 % (0.0-13.0); NEUTROPHILS # (AUTO) 5.3 x10^3/uL (2.2-4.8); NEUTROPHILS % (AUTO) 73.9 % (42.0-75.0); PLATELET COUNT 100 X10^3/uL (150.0-450.0); RED CELL DISTRIBUTION WIDTH 12.2 % (11.6-16.5); WHITE BLOOD COUNT 7.2 X10^3/uL (3.6-10.0)
[2021-06-01 06:36] LABS: ALANINE AMINOTRANSFERASE 12 Units/L (12-78); ALBUMIN 2.9 g/dL (3.4-5.0); ALKALINE PHOSPHATASE 110 Units/L (46-116); ASPARTATE AMINO TRANSFERASE 20 Units/L (15-37); BLOOD UREA NITROGEN 14 mg/dL (7-18); CALCIUM 9.8 mg/dL (8.5-10.1); CARBON DIOXIDE 30.2 mmol/L (21-32); CHLORIDE 110 mmol/L (98-107); COR CA(FOR HYPOALB) 10.7 mg/dL (8.5-10.1); CREATININE 0.95 mg/dL (0.55-1.02); SODIUM 147 mmol/L (136-145); TOTAL PROTEIN 6.1 g/dL (6.4-8.2); eGFR NON BLACK RACES 60 (>60)
[2021-06-01] MEDS: D5W 1000 ML IV 1,000 ML IV SCH ×2 (08:03→15:42)
[2021-06-01] MEDS: BENTYL CAP 10 MG PO SCH ×3 (08:03→21:18)
[2021-06-01] MEDS ORDERED: MICRO K EXTEN CAP 10 MEQ PO PRN (08:20)
[2021-06-01] MEDS ORDERED: KLOR-CON PO PRN (08:20)
[2021-06-01] MEDS ORDERED: POTASSIUM CHL 60 MEQ/NS 0.45% 500 ML IV PRN (08:20)
[2021-06-01] MEDS ORDERED: K-DUR TAB 20 MEQ PO PRN (08:20)
[2021-06-01] MEDS ORDERED: POTASSIUM CHL 40 MEQ/NS 0.45% 500 ML IV PRN (08:20)
[2021-06-01] MEDS ORDERED: K-RIDER 10 MEQ/NS 100 ML 10 MEQ/100 ML BAG IV PRN (08:20)
[2021-06-01] MEDS ORDERED: POTASSIUM CHLORIDE LIQ 20 MEQ UDC PO PRN (08:20)
[2021-06-01] MEDS: ROCEPHIN VIAL 1 GRAM 1 G in NS 100 ML IV + SPIKE MINIBAG* 100 ML IV SCH (09:08)
[2021-06-01] MEDS: ASPIRIN EC 81 MG PO SCH (13:34)
[2021-06-01] MEDS: CLARITIN PO SCH (13:34)
[2021-06-01] MEDS: ARICEPT TAB 10 MG PO SCH (13:34)
[2021-06-01] MEDS: SYNTHROID 100 mcg TAB PO SCH (13:35)
[2021-06-01] MEDS: NAMENDA TAB 10 MG PO SCH ×2 (13:35→21:18)
[2021-06-01] MEDS: COZAAR PO SCH (13:35)
[2021-06-01] MEDS: FERROUS GLUCONATE PO SCH ×2 (13:35→21:17)
[2021-06-01] MEDS: CARDIZEM CD 240 MG 24-HR PO SCH (13:35)
[2021-06-01] MEDS: TAB-A-VITE PO SCH ×2 (13:35→21:18)
[2021-06-01] MEDS: CITRACAL + VITAMIN D PO SCH (13:36)
[2021-06-01] MEDS: ZOCOR TAB 20 MG PO SCH (13:36)
[2021-06-01] MEDS: COLACE SYRUP 100 MG UDC PO SCH ×2 (13:36→21:17)
[2021-06-01] MEDS: VSL#3 PO SCH (13:37)
[2021-06-01] MEDS: MESALAMINE 1.2 GM PO SCH (13:37)
[2021-06-01] MEDS: ZINC SULFATE PO SCH (13:37)
[2021-06-01] MEDS: LOVENOX INJ 40 MG SYR SC SCH (13:50)
[2021-06-01] MEDS: MAGNESIUM SULFATE 1 GRAM/100 mL PREMIX 1 GM/100 ML BAG IV PRN ×4 (20:08→23:49)
[2021-06-01] MEDS: MELATONIN PO SCH (21:18)
[2021-06-01] MEDS: SEROquel TAB 25 mg PO SCH (21:18)
[2021-06-02] MEDS: BENTYL CAP 10 MG PO SCH (06:24)
[2021-06-02] MEDS: D5W 1000 ML IV 1,000 ML IV SCH (06:38)
[2021-06-02 06:43] LABS: BASOPHILS % (AUTO) 0.3 % (0.2-1.0); EOSINOPHILS # (AUTO) 0.1 x10^3/uL (0.0-0.2); EOSINOPHILS % (AUTO) 1.5 % (0.9-2.9); HEMATOCRIT 34.6 % (36.0-47.0); HEMOGLOBIN 11.8 g/dL (12.0-16.0); LYMPHOCYTES % (AUTO) 11.7 % (21.0-51.0); MEAN CORPUSCULAR HEMOGLOBIN 32.2 pg (27.0-34.0); MEAN CORPUSCULAR HGB CONC 34.1 g/dL (33.0-35.0); MEAN CORPUSCULAR VOLUME 94.6 fL (80.0-100.0); MEAN PLATELET VOLUME 8.8 fL (7.4-11.0); MONOCYTES # (AUTO) 0.4 x10^3/uL (0.3-0.8); MONOCYTES % (AUTO) 4.2 % (0.0-13.0); NEUTROPHILS # (AUTO) 7.3 x10^3/uL (2.2-4.8); NEUTROPHILS % (AUTO) 82.3 % (42.0-75.0); PLATELET COUNT 108 X10^3/uL (150.0-450.0); RED BLOOD COUNT 3.66 X10^6/uL (3.5-5.4); RED CELL DISTRIBUTION WIDTH 12.7 % (11.6-16.5); WHITE BLOOD COUNT 8.9 X10^3/uL (3.6-10.0)
[2021-06-02 06:50] LABS: ALANINE AMINOTRANSFERASE 11 Units/L (12-78); ALBUMIN 2.9 g/dL (3.4-5.0); ALKALINE PHOSPHATASE 133 Units/L (46-116); ASPARTATE AMINO TRANSFERASE 17 Units/L (15-37); BLOOD UREA NITROGEN 10 mg/dL (7-18); CARBON DIOXIDE 27.6 mmol/L (21-32); CHLORIDE 109 mmol/L (98-107); COR CA(FOR HYPOALB) 9.9 mg/dL (8.5-10.1); CREATININE 0.76 mg/dL (0.55-1.02); MAGNESIUM 2.4 mg/dL (1.7-2.9); SODIUM 144 mmol/L (136-145); TOTAL PROTEIN 6.4 g/dL (6.4-8.2); eGFR NON BLACK RACES > 60 (>60)
--- NOTE | 2021-06-02 07:19 | DR.PROGNOT ---
Hospital Progress Notes - Progress Note for Day of: Progress Note Date: 06/02/21 - Chief Complaint Chief Complaint: no vhanges , still having swallowing difficulties more to solid food . long standing h/o GERD . - Past Medical Family Social History Past Med/Fam/Surg Hx: No changes since H&P Allergies: Allergies No Known Drug Allergies Allergy (Verified 02/16/21 12:13) - Review Of Systems ROS: No change since H&P - Vital Signs Vital Signs: Temperature 97.5 F Pulse Rate [Right Brachial] 81 Pulse Rate 64 Respiratory Rate 18 Blood Pressure [Right Arm] 131/72 Blood Pressure 171/77 O2 Sat by Pulse Oximetry 97 - Physical Exam Oriented: Not Oriented Eyes: Normal Ear: Normal Nose: Normal Throat: Normal Cardiovascular: Tachycardia : Normal GI:Auscultation: Normal GI:Palpation: Normal GI: Tenderness: Normal (soft ,flat with mild epigastric tenderess , BS+), Periumbilical Skin: Decreased Turgur Musculoskeletal: Instability Mood Description: Calm Speech Pattern: Clear, Appropriate - Laboratory and Diagnostics Result Diagrams: 06/02/21 05:15 06/01/21 19:41 Labs: 05/31/21 12:20 Urine,Clean Catch Urine Culture - Preliminary Laboratory WBC 8.9 X10^3/uL (3.6-10.0) 06/02/21 05:15 RBC 3.66 X10^6/uL (3.5-5.4) 06/02/21 05:15 Hgb 11.8 g/dL (12.0-16.0) L 06/02/21 05:15 Hct 34.6 % (36.0-47.0) L 06/02/21 05:15 MCV 94.6 fL (80.0-100.0) 06/02/21 05:15 MCH 32.2 pg (27.0-34.0) 06/02/21 05:15 MCHC 34.1 g/dL (33.0-35.0) 06/02/21 05:15 RDW 12.7 % (11.6-16.5) 06/02/21 05:15 Plt Count 108 X10^3/uL (150.0-450.0) L 06/02/21 05:15 MPV 8.8 fL (7.4-11.0) 06/02/21 05:15 Neut % (Auto) 82.3 % (42.0-75.0) H 06/02/21 05:15 Lymph % (Auto) 11.7 % (21.0-51.0) L 06/02/21 05:15 [place] % (Auto) 4.2 % (0.0-13.0) 06/02/21 05:15 Eos % (Auto) 1.5 % (0.9-2.9) 06/02/21 05:15 Baso % (Auto) 0.3 % (0.2-1.0) 06/02/21 05:15 Neut # (Auto) 7.3 x10^3/uL (2.2-4.8) H 06/02/21 05:15 Lymph # (Auto) 1.0 X10^3/uL (1.3-2.9) L 06/02/21 05:15 [place] # (Auto) 0.4 x10^3/uL (0.3-0.8) 06/02/21 05:15 Eos # (Auto) 0.1 x10^3/uL (0.0-0.2) 06/02/21 05:15 Baso # (Auto) 0.0 X10^3/uL (0.0-0.1) 06/02/21 05:15 Absolute Nucleated RBC 0.0 /100WBC 06/02/21 05:15 Sodium 147 mmol/L (136-145) H 06/01/21 05:09 Corrected Sodium TNP 06/01/21 05:09 Potassium 4.4 mmol/L (3.5-5.1) 06/01/21 19:41 Chloride 110 mmol/L (98-107) H 06/01/21 05:09 Carbon Dioxide 30.2 mmol/L (21-32) 06/01/21 05:09 BUN 14 mg/dL (7-18) 06/01/21 05:09 Creatinine 0.95 mg/dL (0.55-1.02) 06/01/21 05:09 Est GFR (MDRD) Af Amer > 60 (>60) 06/01/21 05:09 Est GFR (MDRD) Non-Af 60 (>60) 06/01/21 05:09 Glucose 88 mg/dL (65-99) 06/01/21 05:09 Calcium 9.8 mg/dL (8.5-10.1) 06/01/21 05:09 Corrected Calcium 10.7 mg/dL (8.5-10.1) H 06/01/21 05:09 Magnesium 1.2 mg/dL (1.7-2.9) L 06/01/21 05:09 Total Bilirubin 0.30 mg/dL (0.2-1.0) 06/01/21 05:09 AST 20 Units/L (15-37) 06/01/21 05:09 ALT 12 Units/L (12-78) 06/01/21 05:09 Alkaline Phosphatase 110 Units/L (46-116) 06/01/21 05:09 Creatine Kinase 90 Units/L (26-192) 05/31/21 10:52 CK-MB (CK-2) 1.2 ng/mL (0-4.0) 05/31/21 10:52 CK/CKMB % Calc 1.3 % (<4) 05/31/21 10:52 Troponin I 0.04 ng/mL (0-1.5) 05/31/21 10:52 Total Protein 6.1 g/dL (6.4-8.2) L 06/01/21 05:09 Albumin 2.9 g/dL (3.4-5.0) L 06/01/21 05:09 Globulin 3.2 g/dL (2.5-4.5) 06/01/21 05:09 Albumin/Globulin Ratio 0.9 Ratio (1.1-2.1) L 06/01/21 05:09 Specimen Type Clean catch urine 05/31/21 12:20 Urine Color Yellow (YELLOW) 05/31/21 12:20 Urine Appearance Hazy (CLEAR) 05/31/21 12:20 Urine pH 7.0 (5.0 - 8.0) 05/31/21 12:20 Ur Specific [place] 1.010 (1.000-1.030) 05/31/21 12:20 Urine Protein 1+ (NEGATIVE) 05/31/21 12:20 Urine Glucose (UA) Negative (NEGATIVE) 05/31/21 12:20 Urine Ketones Negative (NEGATIVE) 05/31/21 12:20 Urine Occult Blood 2+ (NEGATIVE) 05/31/21 12:20 Urine Nitrite Positive (NEGATIVE) 05/31/21 12:20 Urine Bilirubin Negative (NEGATIVE) 05/31/21 12:20 Urine Urobilinogen Normal (NORMAL) 05/31/21 12:20 Ur Leukocyte Esterase 3+ (NEGATIVE) 05/31/21 12:20 Urine RBC 3-5 /HPF (0-3) A 05/31/21 12:20 Urine WBC 5-10 /HPF (0-5) A 05/31/21 12:20 Ur Squamous Epith Cells Rare /HPF (NEGATIVE) 05/31/21 12:20 Amorphous Sediment 1+ /HPF (NEGATIVE) 05/31/21 12:20 Urine Bacteria 1+ /HPF (NEGATIVE) 05/31/21 12:20 Ur Culture Indicated? Yes/culture set up 05/31/21 12:20 SARS-CoV-2 (PCR) Negative (NEGATIVE) 05/31/21 02:57 Influenza Type A (PCR) Negative (NEGATIVE) 05/31/21 02:57 Influenza Type B (PCR) Negative (NEGATIVE) 05/31/21 02:57 RSV (PCR) Negative (NEGATIVE) 05/31/21 02:57 - Assessment and Plan 1: recent dysphagia more to solid food . longstanding h/o GERD and possible esophagitis. recent changes in mental status and mobility . for EGD and possible dilatation - Problem Patient Problems: Patient Problems Hypernatremia (Acute) E87.0 Generalized weakness (Acute) R53.1 AMS (altered mental status) (Acute) R41.82
--- NOTE | 2021-06-02 09:03 | PCM.PROG ---
Progress Note - Progress Note for Day of Date of Exam: 06/01/21 - Subjective Subjective: WAS ADMITTED FOR TREATMENT OF HYPERNATREMIA, AMS, GENERALIZED WEAKNESS, AND UTI. TODAY, SHE IS ALERT AND ORIENTED, LYING IN BED ON MORNING ROUNDS. SHE CONTINUES WITH COMPLAINTS OF WEAKNESS AND ALSO REPORTS DYSPHAGIA TODAY. PATIENTS DAUGHTER IS AT BEDSIDE AND REPORTS THAT PATIENT HAS HAD SEVERAL EPISODES YESTERDAY WHERE SHE BECAME STRANGLED ON SOLID FOODS. DAUGHTER REPORTS THAT SHE HAS BEEN TOLERATING LIQUIDS WELL. ON EXAMINATION, HEART IS REGULAR IN RATE AND RHYTHM. BILATERAL LUNGS ARE NOTED WITH DIMINISHED LUNG SOUNDS THROUGHOUT. ABDOMEN IS ROUND, SOFT, AND NON-TENDER WITH NORMAL BOWEL SOUNDS NOTED IN ALL QUADRANTS. HER VITALS THIS MORNING ARE: 97.1-60-18-98%-123/59. LABS WERE OBTAINED. ABNORMAL LAB VALUES INCLUDE THE FOLLOWING: RBC 3.40, HGB 11.0, HCT 32.2, PLT COUNT 100, SODIUM 147, POTASSIUM 3.0, CHLORIDE 110, MAGNESIUM 1.2, TOTAL PROTEIN 6.1, ALBUMIN 2.9. URINALYSIS REVEALED: WBC 5-10, RBC 3-5, LEUKOCYTES 3+, BACTERIA 1+, OCCULT BLOOD 2+, NITRITES POSITIVE. URINE CULTURE WAS SET UP. SHE IS CURRENTLY RECEIVING D5W AT 50 ML/HR, LOVENOX 40MG SC DAILY, AND HER HOME MEDICATIONS WERE RESUMED. TODAY, WE WILL ADD ROCEPHIN 1G IV DAILY. WE WILL CONSULT WITH FOR POSSIBLE EGD AND SPEECH THERAPY. OTHERWISE, WE PLAN TO FOLLOW UP WITH AM LABS AND CONTINUE TO MONITOR. TIME SPENT ON CLINICAL ASSESSMENT, REVIEWING LABS AND IMAGING, DECISION MAKING, AND DOCUMENTATION GREATER THAN 45 MINUTES. - Past Medical Family Social History Past Med/Fam/Surg Hx: No changes since H&P Allergies: Allergies No Known Drug Allergies Allergy (Verified 02/16/21 12:13) - Review of Systems ROS: No change since H&P - Vital Signs and I&O's Vital Signs: Temperature 97.5 F Pulse Rate [Right Brachial] 81 Pulse Rate 64 Respiratory Rate 18 Blood Pressure [Right Arm] 131/72 Blood Pressure 171/77 O2 Sat by Pulse Oximetry 97 Intake and Output: Intake & Output 05/30/21 05/31/21 06/01/21 06/02/21 11:59 11:59 11:59 11:59 Intake Total 370 / 370 939 / 939 1492 / 1492 Output Total 0 / 0 Balance 370 / 370 939 / 939 1492 / 1492 - Physical Exam Oriented: Person Eyes: Normal Ear: Normal Nose: Normal Throat: Normal Respiratory: Diminished Cardiovascular: Normal : Normal Auscultation: Bowel Sounds: Normal Palpation: Normal Tenderness: Normal Skin: Decreased Turgur Musculoskeletal: Instability Mood Description: Calm Speech Pattern: Clear, Appropriate - Laboratory and Diagnostics Result Diagrams: 06/02/21 05:15 06/02/21 05:15 Labs: 05/31/21 12:20 Urine,Clean Catch Urine Culture - Preliminary Laboratory WBC 8.9 X10^3/uL (3.6-10.0) 06/02/21 05:15 RBC 3.66 X10^6/uL (3.5-5.4) 06/02/21 05:15 Hgb 11.8 g/dL (12.0-16.0) L 06/02/21 05:15 Hct 34.6 % (36.0-47.0) L 06/02/21 05:15 MCV 94.6 fL (80.0-100.0) 06/02/21 05:15 MCH 32.2 pg (27.0-34.0) 06/02/21 05:15 MCHC 34.1 g/dL (33.0-35.0) 06/02/21 05:15 RDW 12.7 % (11.6-16.5) 06/02/21 05:15 Plt Count 108 X10^3/uL (150.0-450.0) L 06/02/21 05:15 MPV 8.8 fL (7.4-11.0) 06/02/21 05:15 Neut % (Auto) 82.3 % (42.0-75.0) H 06/02/21 05:15 Lymph % (Auto) 11.7 % (21.0-51.0) L 06/02/21 05:15 [place] % (Auto) 4.2 % (0.0-13.0) 06/02/21 05:15 Eos % (Auto) 1.5 % (0.9-2.9) 06/02/21 05:15 Baso % (Auto) 0.3 % (0.2-1.0) 06/02/21 05:15 Neut # (Auto) 7.3 x10^3/uL (2.2-4.8) H 06/02/21 05:15 Lymph # (Auto) 1.0 X10^3/uL (1.3-2.9) L 06/02/21 05:15 [place] # (Auto) 0.4 x10^3/uL (0.3-0.8) 06/02/21 05:15 Eos # (Auto) 0.1 x10^3/uL (0.0-0.2) 06/02/21 05:15 Baso # (Auto) 0.0 X10^3/uL (0.0-0.1) 06/02/21 05:15 Absolute Nucleated RBC 0.0 /100WBC 06/02/21 05:15 Sodium 144 mmol/L (136-145) 06/02/21 05:15 Corrected Sodium TNP 06/02/21 05:15 Potassium 3.8 mmol/L (3.5-5.1) 06/02/21 05:15 Chloride 109 mmol/L (98-107) H 06/02/21 05:15 Carbon Dioxide 27.6 mmol/L (21-32) 06/02/21 05:15 BUN 10 mg/dL (7-18) 06/02/21 05:15 Creatinine 0.76 mg/dL (0.55-1.02) 06/02/21 05:15 Est GFR (MDRD) Af Amer > 60 (>60) 06/02/21 05:15 Est GFR (MDRD) Non-Af > 60 (>60) 06/02/21 05:15 Glucose 100 mg/dL (65-99) H 06/02/21 05:15 Calcium 9.0 mg/dL (8.5-10.1) 06/02/21 05:15 Corrected Calcium 9.9 mg/dL (8.5-10.1) 06/02/21 05:15 Magnesium 2.4 mg/dL (1.7-2.9) 06/02/21 05:15 Total Bilirubin 0.30 mg/dL (0.2-1.0) 06/02/21 05:15 AST 17 Units/L (15-37) 06/02/21 05:15 ALT 11 Units/L (12-78) L 06/02/21 05:15 Alkaline Phosphatase 133 Units/L (46-116) H 06/02/21 05:15 Creatine Kinase 90 Units/L (26-192) 05/31/21 10:52 CK-MB (CK-2) 1.2 ng/mL (0-4.0) 05/31/21 10:52 CK/CKMB % Calc 1.3 % (<4) 05/31/21 10:52 Troponin I 0.04 ng/mL (0-1.5) 05/31/21 10:52 Total Protein 6.4 g/dL (6.4-8.2) 06/02/21 05:15 Albumin 2.9 g/dL (3.4-5.0) L 06/02/21 05:15 Globulin 3.5 g/dL (2.5-4.5) 06/02/21 05:15 Albumin/Globulin Ratio 0.8 Ratio (1.1-2.1) L 06/02/21 05:15 Specimen Type Clean catch urine 05/31/21 12:20 Urine Color Yellow (YELLOW) 05/31/21 12:20 Urine Appearance Hazy (CLEAR) 05/31/21 12:20 Urine pH 7.0 (5.0 - 8.0) 05/31/21 12:20 Ur Specific [place] 1.010 (1.000-1.030) 05/31/21 12:20 Urine Protein 1+ (NEGATIVE) 05/31/21 12:20 Urine Glucose (UA) Negative (NEGATIVE) 05/31/21 12:20 Urine Ketones Negative (NEGATIVE) 05/31/21 12:20 Urine Occult Blood 2+ (NEGATIVE) 05/31/21 12:20 Urine Nitrite Positive (NEGATIVE) 05/31/21 12:20 Urine Bilirubin Negative (NEGATIVE) 05/31/21 12:20 Urine Urobilinogen Normal (NORMAL) 05/31/21 12:20 Ur Leukocyte Esterase 3+ (NEGATIVE) 05/31/21 12:20 Urine RBC 3-5 /HPF (0-3) A 05/31/21 12:20 Urine WBC 5-10 /HPF (0-5) A 05/31/21 12:20 Ur Squamous Epith Cells Rare /HPF (NEGATIVE) 05/31/21 12:20 Amorphous Sediment 1+ /HPF (NEGATIVE) 05/31/21 12:20 Urine Bacteria 1+ /HPF (NEGATIVE) 05/31/21 12:20 Ur Culture Indicated? Yes/culture set up 05/31/21 12:20 SARS-CoV-2 (PCR) Negative (NEGATIVE) 05/31/21 02:57 Influenza Type A (PCR) Negative (NEGATIVE) 05/31/21 02:57 Influenza Type B (PCR) Negative (NEGATIVE) 05/31/21 02:57 RSV (PCR) Negative (NEGATIVE) 05/31/21 02:57 - Plan (1) Hypernatremia Status: Acute Plan: D5W AT 50 ML/HR, ROCEPHIN 1G IV DAILY, LOVENOX 40MG SC DAILY, AND HER HOME MEDICATIONS WERE RESUMED. (2) Urinary tract infection Status: Acute Qualifiers: Urinary tract infection type: site unspecified Hematuria presence: with hematuria Qualified Code(s): N39.0 - Urinary tract infection, site not specified; R31.9 - Hematuria, unspecified (3) AMS (altered mental status) Status: Acute Qualifiers: Altered mental status type: transient alteration of awareness Qualified Code(s): R40.4 - Transient alteration of awareness (4) Generalized weakness Status: Acute (5) Dysphagia Status: Acute Qualifiers: Dysphagia type: unspecified Qualified Code(s): R13.10 - Dysphagia, unspecified
[2021-06-02] MEDS: ASPIRIN EC 81 MG PO SCH (09:59)
[2021-06-02] MEDS: ARICEPT TAB 10 MG PO SCH (10:00)
[2021-06-02] MEDS: CITRACAL + VITAMIN D PO SCH (10:00)
[2021-06-02] MEDS: CARDIZEM CD 240 MG 24-HR PO SCH (10:00)
[2021-06-02] MEDS: CLARITIN PO SCH (10:00)
[2021-06-02] MEDS: NAMENDA TAB 10 MG PO SCH (10:01)
[2021-06-02] MEDS: COLACE SYRUP 100 MG UDC PO SCH (10:01)
[2021-06-02] MEDS: COZAAR PO SCH (10:01)
[2021-06-02] MEDS: LOVENOX INJ 40 MG SYR SC SCH (10:02)
[2021-06-02] MEDS: FERROUS GLUCONATE PO SCH (10:02)
[2021-06-02] MEDS: ROCEPHIN VIAL 1 GRAM 1 G in NS 100 ML IV + SPIKE MINIBAG* 100 ML IV SCH (10:02)
[2021-06-02] MEDS: TAB-A-VITE PO SCH (10:03)
[2021-06-02] MEDS: ZINC SULFATE PO SCH (10:03)
[2021-06-02] MEDS: ZOCOR TAB 20 MG PO SCH (10:03)
[2021-06-02] MEDS: SYNTHROID 100 mcg TAB PO SCH (10:03)
[2021-06-02] MEDS: VSL#3 PO SCH (10:04)
[2021-06-02] MEDS: MESALAMINE 1.2 GM PO SCH (10:04)
[2021-06-02 12:02] VITALS: BP 161/74
== END 2021-06-02 14:30 | disposition home health service (06) ==
LOC: MED/SURG 00:08 → ER 00:08 → MED/SURG 05:09
PROVIDERS: ADMIT Internal Medicine; ATTEND Internal Medicine
DX: E87.6 Hypokalemia; Z95.0 Presence of cardiac pacemaker; R53.1 Weakness; I10 Essential (primary) hypertension; B96.29 Other Escherichia coli [E. coli] as the cause of diseases classified elsewhere; J44.9 Chronic obstructive pulmonary disease, unspecified; R94.31 Abnormal electrocardiogram [ECG] [EKG]; Z20.822 Contact with and (suspected) exposure to COVID-19; R40.4 Transient alteration of awareness; E87.0 Hyperosmolality and hypernatremia; R47.81 Slurred speech; R13.11 Dysphagia, oral phase; K21.9 Gastro-esophageal reflux disease without esophagitis